=== PATIENT | male | born 1955 | race African-American/Black ===

== ENCOUNTER 2017-11-17 09:58 | Inpatient (IN) | payer OTHER ==
[2017-11-17 11:29] VITALS: BMI 22.1
--- NOTE | 2017-11-17 13:58 | HP ---
CIWA Score - CIWA Score Nausea/Vomitin-No Nausea/No Vomiting Muscle Tremors: 3 Anxiety: 4-Mod. Anxious/Guarded Agitation: 0-Normal Activity Paroxysmal Sweats: 3 Orientation: 0-Oriented Tacttile Disturbances: 1-Very Mild Itch/Numbness Auditory Disturbances: 0-None Visual Disturbances: 2-Mild Sensitivity Headache: 4-Moderately Severe CIWA-Ar Total Score: 17 Admission ROS BHS - HPI Chief Complaint: "I would like to stop drinking." Pt. is here to Detox from Alcohol. Allergies/Adverse Reactions: Allergies Allergy/AdvReac Type Severity Reaction Status Date / Time No Known Allergies Allergy Verified 11/17/17 11:40 History of Present Illness: Pt. is a 62 YO male here to Detox from Alcohol. Patient has had several previous Detox Admissions at [facility] in the past (most recent: 09/2017). Longest period of sobriety in recent years: approx. 20 days (06/2017). Exam Limitations: No Limitations - Ebola screening Have you traveled outside of the country in the last 21 days: No Have you had contact with anyone from an Ebola affected area: No Have you been sick,other than usual withdrawal symptoms: No Do you have a fever: No - Review of Systems Constitutional: Chills, Diaphoresis, Fever, Malaise, Night Sweats, Unexplained wgt Loss (Lost approx. 10 lbs. over last 2 months.) EENT: reports: Blurred Vision, Tearing, Nose Congestion, Sinus Pressure Respiratory: reports: Productive cough Cardiac: reports: No Symptoms Reported GI: reports: Nausea, Vomiting, Indigestion : reports: Frequency (Currently takes HCTZ for HTN.) Musculoskeletal: reports: Back Pain, Joint Pain, Muscle Pain, Neck Pain, Joint Stiffness Integumentary: reports: No Symptoms Reported Neuro: reports: Headache, Numbness (Bilateral hands.), Tingling (Bilateral hands.), Tremors Endocrine: reports: No Symptoms Reported Hematology: reports: Anemia (Not sure about type.) Psychiatric: reports: Judgement Intact, Mood/Affect Appropiate, Orientated x3, Anxious Other Systems: Reviewed and Negative Patient History - Patient Medical History Hx Anemia: Yes (Uncertin about type; No previous Treatment.) Hx Asthma: No Hx Chronic Obstructive Pulmonary Disease (COPD): No Hx Cancer: No Hx Cardiac Disorders: No Hx Congestive Heart Failure: No Hx Hypertension: Yes (NON COMPLIANT WITH MEDS.) Hx Hypercholesterolemia: Yes (In past, not taking any current medications.) Hx Pacemaker: No HX Cerebrovascular Accident: No Hx Seizures: No Hx Dementia: No Hx Diabetes: No Hx Gastrointestinal Disorders: No Hx Liver Disease: No Hx Genitourinary Disorders: No Hx Sexually Transmitted Disorders: No Hx Renal Disease (ESRD): No Hx Thyroid Disease: No Hx Human Immunodeficiency Virus (HIV): No (Last Tested: approx. 5 months ago: NEGATIVE.) Hx Hepatitis C: No (Last Tested: approx. 1 month ago: NEGATIVE.) Hx Depression: No Hx Suicide Attempt: No (PATIENT DENIES CURRENT SI / HI.) Hx Bipolar Disorder: No Hx Schizophrenia: No Other Medical History: DENIES. - Patient Surgical History Past Surgical History: No Hx Neurologic Surgery: No Hx Cataract Extraction: No Hx Cardiac Surgery: No Hx Lung Surgery: No Hx Breast Surgery: No Hx Breast Biopsy: No Hx Abdominal Surgery: No Hx Appendectomy: No Hx Cholecystectomy: No Hx Genitourinary Surgery: No Hx Section: No Hx Orthopedic Surgery: No Anesthesia Reaction: No - PPD History Previous Implant?: Yes Documented Results: Negative w/proof Implanted On Prior [facility] Admission?: Yes Date: 09/08/17 Results: 0 MM PPD to be Administered?: No - Reproductive History Patient is a Female of Child Bearing Age (11 -55 yrs old): No (PATIENT IS MALE.) - Smoking Cessation Smoking history: Current every day smoker Have you smoked in the past 12 months: Yes Aproximately how many cigarettes per day: 20 Cigars Per Day: 0 Hx Chewing Tobacco Use: No Initiated information on smoking cessation: Yes 'Breaking Loose' booklet given: 11/17/17 (GIVEN TO PATIENT.) - Substance & Tx. History Hx Alcohol Use: Yes Hx Substance Use: Yes Substance Use Type: Alcohol, Cocaine, Marijuana Hx Substance Use Treatment: Yes (Previous Detox Admissions at [facility] (most recent : 09/2017).) - Substances Abused Alcohol Route: Oral Frequency: Daily Amount used: 12 PK BEER / 1 PINT OF VODKA OR RUM Age of first use: 16 Date of Last Use: 11/16/17 Cocaine Route: Inhalation Frequency: Daily Amount used: 2-3 GRAMS Age of first use: 19 Date of Last Use: 11/16/17 Marijuana/Hashish Route: Smoking Frequency: Daily Amount used: 1/8 OF AN OUNCE Age of first use: 17 Date of Last Use: 11/16/17 Family Disease History - Family Disease History Family Disease History: Heart Disease: Mother (CVA; .), Other: Mother Admission Physical Exam [facility] - Vital Signs Vital Signs: Vital Signs - 24 hr 11/17/17 11:25 Temperature 96.3 F L Pulse Rate 81 Respiratory 19 Rate Blood Pressure 158/104 - Physical General Appearance: Yes: No Apparent Distress, Appropriately Dressed, Thin, Tremorous HEENTM: Yes: Hearing grossly Normal, Normocephalic, Normal Voice, NIRMALA, Pharynx Normal Respiratory: Yes: Chest Non-Tender, Lungs Clear, No Respiratory Distress, No Accessory Muscle Use Neck: Yes: No masses,lesions,Nodules, Supple, Trachea in good position Breast: Yes: Breast Exam Deferred Cardiology: Yes: Regular Rhythm, Regular Rate, S1, S2 Abdominal: Yes: Normal Bowel Sounds, Non Tender, Flat, Soft Genitourinary: Yes: Within Normal Limits Back: Yes: Decreased Range of Motion Musculoskeletal: Yes: Gait Steady, Back pain, Joint Stiffness Extremities: Yes: Tremors, Other (Swelling noted in Right Hand. Patient reports that this started last night. Patient denies any recent injury to hand, arm, or neck and he denies any IV drug use in right arm / hand. Patient denies any history of similar occurrence. No erythema, bleeding, wounds, unusual discharge , or signsd of infection noted in right hand or arm. Patient advised to keep right arm elevated while lying in bed and to immediately notify medical / nursing staff should he notice any change in condition of right hand at any time. Patient veralized understanding of recommendations.) Neurological: Yes: Fully Oriented, Alert, Normal Mood/Affect, Normal Response Integumentary: Yes: Normal Color, Dry, Warm Lymphatic: Yes: Within Normal Limits - Diagnostic (1) Cocaine dependence, uncomplicated Current Visit: Yes Status: Acute (2) Alcohol dependence with uncomplicated withdrawal Current Visit: Yes Status: Acute (3) Nicotine dependence Current Visit: Yes Status: Chronic Qualifiers: Nicotine product type: cigarettes Substance use status: uncomplicated Qualified Code(s): F17.210 - Nicotine dependence, cigarettes, uncomplicated (4) Hypertension Current Visit: Yes Status: Chronic Qualifiers: Hypertension type: essential hypertension Qualified Code(s): I10 - Essential (primary) hypertension Cleared for Admission [facility] - Detox or Rehab [facility] Level of Care: Medically Managed Detox Regimen/Protocol: Librium [facility] Breath Alcohol Content Breath Alcohol Content: 0 Urine Drug Screen - Results Drug Screen Negative: No Urine Drug Screen Results: THC-Marijuana, NIDA-Cocaine, BZO-Benzodiazepines
[2017-11-17] MEDS ORDERED: chlordiazePOXIDE HCL 25 MG CAPSULE PO PRN (14:41)
[2017-11-17] MEDS ORDERED: MAGNESIUM CITRATE 300 ML BOTTLE PO PRN (14:41)
[2017-11-17] MEDS ORDERED: ACETAMINOPHEN 325 MG TABLET (FP) PO PRN (14:41)
[2017-11-17] MEDS ORDERED: guaiFENesin/D-METHORPHAN HB 10 ML UNIT-DOSE CUPS PO PRN (14:41)
[2017-11-17] MEDS ORDERED: LOPERAMIDE HCL 2 MG CAPSULE PO PRN (14:41)
[2017-11-17] MEDS ORDERED: MAG HYDROX/AL HYDROX/SIMETH 30 ML UNIT-DOSE CUP PO PRN (14:41)
[2017-11-17] MEDS ORDERED: MENTHOL/PHENOL 1 EACH UD MM PRN (14:41)
[2017-11-17] MEDS ORDERED: MAGNESIUM HYDROX 2400MG/30ML ORAL SUSPENSION 30 ML CUP PO PRN (14:41)
[2017-11-17] MEDS ORDERED: IBUPROFEN 400 MG TABLET (FP) PO PRN (14:41)
[2017-11-17] MEDS ORDERED: P-EPHED 60MG/TRIPROLIDI 2.5MG TABLET PO PRN (14:41)
[2017-11-17] MEDS ORDERED: chlordiazePOXIDE HCL 25 MG CAPSULE PO ONE (15:27)
[2017-11-17] MEDS: amLODIPine BESYLATE 10 MG TABLET (FP) PO SCH (15:58)
[2017-11-17] MEDS: HYDROCHLOROTHIAZIDE 25 MG TABLET (FP) PO SCH (15:58)
[2017-11-17] MEDS: chlordiazePOXIDE HCL 25 MG CAPSULE PO SCH ×2 (16:00→22:09)
--- NOTE | 2017-11-17 18:45 | EKG ---
Test Reason : Blood Pressure : / mmHG Vent. Rate : 060 BPM Atrial Rate : 060 BPM P-R Int : 148 ms QRS Dur : 100 ms QT Int : 484 ms P-R-T Axes : 071 -21 -70 degrees QTc Int : 484 ms NORMAL SINUS RHYTHM POSSIBLE LEFT ATRIAL ENLARGEMENT LEFT VENTRICULAR HYPERTROPHY CANNOT RULE OUT ANTEROSEPTAL INFARCT , AGE UNDETERMINED ABNORMAL ECG WHEN COMPARED WITH ECG OF 07-SEP-2017 10:02, MINIMAL CRITERIA FOR ANTEROSEPTAL INFARCT ARE NOW PRESENT Confirmed by THU NARANJO, MARIANNE ([id number]) on 11/17/2017 6:45:08 PM Referred By: Confirmed By:MARIANNE ANDINO MD
[2017-11-17] MEDS: THIAMINE HCL 100 MG TABLET (FP) PO SCH (22:09)
[2017-11-17 23:25] LABS: URINE APPEARANCE CLEAR; URINE BILIRUBIN NEGATIVE (NEGATIVE); URINE BLOOD NEGATIVE (NEGATIVE); URINE COLOR YELLOW; URINE GLUCOSE (UA) NEGATIVE (NEGATIVE); URINE KETONE TRACE (NEGATIVE); URINE LEUK ESTERASE NEGATIVE (NEGATIVE); URINE NITRITE NEGATIVE (NEGATIVE); URINE PROTEIN NEGATIVE (NEGATIVE); URINE UROBILINOGEN 4.0 E.U/dl mg/dL (0.2-1.0)
[2017-11-18] MEDS: chlordiazePOXIDE HCL 25 MG CAPSULE PO SCH ×4 (05:03→22:05)
--- NOTE | 2017-11-18 10:39 | PN ---
[facility] CIWA - CIWA Score Nausea/Vomitin-No Nausea/No Vomiting Muscle Tremors: 4-Moderate,w/Arms Extend Anxiety: 4-Mod. Anxious/Guarded Agitation: 4-Moderately Restless Paroxysmal Sweats: 1-Minimal Palms Moist Orientation: 0-Oriented Tacttile Disturbances: 3-Moderate Itch/Numb/Burn Auditory Disturbances: 0-None Visual Disturbances: 0-None Headache: 0-None Present CIWA-Ar Total Score: 16 BHS Progress Note (SOAP) Subjective: ANXIETY,SWEATS,TREMORS,IRRITABILITY. PT C/O PAIN/SWELLING TO RIGHT HAND X 3 DAYS. DENIES FALLS OR ANY TRUAMA TO HIS RECOLLECTION. Objective: 11/18/17 10:37 Vital Signs Temperature 97.1 F L 11/18/17 09:02 Pulse Rate 95 H 11/18/17 09:02 Respiratory Rate 20 11/18/17 09:02 Blood Pressure 157/95 11/18/17 09:02 O2 Sat by Pulse Oximetry (%) Laboratory Last Values Urine Color Yellow 11/17/17 20:47 Urine Appearance Clear 11/17/17 20:47 Urine pH 6.0 (5.0-8.0) 11/17/17 20:47 Ur Specific [place] 1.021 (1.001-1.035) 11/17/17 20:47 Urine Protein Negative (NEGATIVE) 11/17/17 20:47 Urine Glucose (UA) Negative (NEGATIVE) 11/17/17 20:47 Urine Ketones Trace (NEGATIVE) H 11/17/17 20:47 Urine Blood Negative (NEGATIVE) 11/17/17 20:47 Urine Nitrite Negative (NEGATIVE) 11/17/17 20:47 Urine Bilirubin Negative (NEGATIVE) 11/17/17 20:47 Urine Urobilinogen 4.0 e.u/dl mg/dL (0.2-1.0) 11/17/17 20:47 Ur Leukocyte Esterase Negative (NEGATIVE) 11/17/17 20:47 OTHER LABS PENDING RIGHT HAND: SLIGHT SWELLING COMPARED TO LEFT HAND. Assessment: 11/18/17 10:38 WITHDRAWAL SX Plan: CONTINUE DETOX XRAY RIGHT HAND R/O FX
[2017-11-18] MEDS: LISINOPRIL 10 MG TABLET (FP) PO SCH (10:42)
[2017-11-18] MEDS: PRENATAL VITAMINS W/ FOLIC ACID TABLET (FP) PO SCH (10:42)
[2017-11-18] MEDS: HYDROCHLOROTHIAZIDE 25 MG TABLET (FP) PO SCH (10:42)
[2017-11-18] MEDS: amLODIPine BESYLATE 10 MG TABLET (FP) PO SCH (10:42)
[2017-11-18 10:45] LABS: HEMATOCRIT 38.1 % (35.4-49); HEMOGLOBIN 12.1 GM/dL (11.7-16.9); MCH 26.9 pg (25.7-33.7); MCHC 31.8 g/dl (32.0-35.9); MEAN CELL VOLUME 84.6 fl (80-96); MEAN PLT VOLUME 10.2 fl (7.5-11.1); PLATELET COUNT 203 K/MM3 (134-434); RDW 14.1 % (11.9-15.9); WHITE BLOOD COUNT 3.7 K/mm3 (4.0-10.0)
[2017-11-18 11:18] LABS: ALBUMIN 3.4 g/dl (3.4-5.0); ANION GAP 6 (8-16); BLOOD UREA NITROGEN 18 mg/dL (7-18); CALCIUM 8.7 mg/dL (8.5-10.1); CHLORIDE 104 mmol/L (98-107); CO2 32 mmol/L (21-32); GLUCOSE,RANDOM 126 mg/dL (74-106); POTASSIUM 3.6 mmol/L (3.5-5.1); SODIUM 142 mmol/L (136-145)
[2017-11-18 11:23] LABS: ALK PHOS 79 U/L (45-117); BILIRUBIN,TOTAL 0.6 mg/dL (0.2-1.0); CREATININE 1.8 mg/dL (0.7-1.3); SGOT/AST 34 U/L (15-37); SGPT/ALT 50 U/L (12-78); TOT PROT 7.4 g/dl (6.4-8.2)
[2017-11-18] MEDS: THIAMINE HCL 100 MG TABLET (FP) PO SCH (22:05)
[2017-11-19] MEDS: chlordiazePOXIDE HCL 25 MG CAPSULE PO SCH ×2 (05:38→10:13)
[2017-11-19] MEDS: amLODIPine BESYLATE 10 MG TABLET (FP) PO SCH (10:12)
[2017-11-19] MEDS: LISINOPRIL 10 MG TABLET (FP) PO SCH (10:12)
[2017-11-19] MEDS: PRENATAL VITAMINS W/ FOLIC ACID TABLET (FP) PO SCH (10:12)
[2017-11-19] MEDS: HYDROCHLOROTHIAZIDE 25 MG TABLET (FP) PO SCH (10:12)
--- NOTE | 2017-11-19 11:58 | PN ---
[facility] CIWA - CIWA Score Nausea/Vomitin-No Nausea/No Vomiting Muscle Tremors: 3 Anxiety: 4-Mod. Anxious/Guarded Agitation: 3 Paroxysmal Sweats: 1-Minimal Palms Moist Orientation: 0-Oriented Tacttile Disturbances: 3-Moderate Itch/Numb/Burn Auditory Disturbances: 0-None Visual Disturbances: 0-None Headache: 0-None Present CIWA-Ar Total Score: 14 S Progress Note (SOAP) Subjective: C/O BACK PAIN AND RIGHT HAND PAIN. PT DECLINED TO XRAY OF HAND STATING "THERE IS NO INJURY.WHY DO I HAVE TO DO XRAY". Objective: 11/19/17 12:29 Vital Signs Temperature 97.0 F L 11/19/17 09:37 Pulse Rate 99 H 11/19/17 09:37 Respiratory Rate 18 11/19/17 09:37 Blood Pressure 154/102 11/19/17 09:37 O2 Sat by Pulse Oximetry (%) Laboratory Last Values WBC 3.7 K/mm3 (4.0-10.0) L 11/18/17 06:00 RBC 4.50 M/mm3 (4.00-5.60) 11/18/17 06:00 Hgb 12.1 GM/dL (11.7-16.9) 11/18/17 06:00 Hct 38.1 % (35.4-49) 11/18/17 06:00 MCV 84.6 fl (80-96) 11/18/17 06:00 MCH 26.9 pg (25.7-33.7) 11/18/17 06:00 MCHC 31.8 g/dl (32.0-35.9) L 11/18/17 06:00 RDW 14.1 % (11.9-15.9) 11/18/17 06:00 Plt Count 203 K/MM3 (134-434) 11/18/17 06:00 MPV 10.2 fl (7.5-11.1) 11/18/17 06:00 Sodium 142 mmol/L (136-145) 11/18/17 06:00 Potassium 3.6 mmol/L (3.5-5.1) 11/18/17 06:00 Chloride 104 mmol/L (98-107) 11/18/17 06:00 Carbon Dioxide 32 mmol/L (21-32) 11/18/17 06:00 Anion Gap 6 (8-16) L 11/18/17 06:00 BUN 18 mg/dL (7-18) 11/18/17 06:00 Creatinine 1.8 mg/dL (0.7-1.3) H 11/18/17 06:00 Creat Clearance w eGFR 38.68 (>60) 11/18/17 06:00 Random Glucose 126 mg/dL (74-106) H 11/18/17 06:00 Calcium 8.7 mg/dL (8.5-10.1) 11/18/17 06:00 Total Bilirubin 0.6 mg/dL (0.2-1.0) D 11/18/17 06:00 AST 34 U/L (15-37) 11/18/17 06:00 ALT 50 U/L (12-78) D 11/18/17 06:00 Alkaline Phosphatase 79 U/L (45-117) D 11/18/17 06:00 Total Protein 7.4 g/dl (6.4-8.2) 11/18/17 06:00 Albumin 3.4 g/dl (3.4-5.0) 11/18/17 06:00 Urine Color Yellow 11/17/17 20:47 Urine Appearance Clear 11/17/17 20:47 Urine pH 6.0 (5.0-8.0) 11/17/17 20:47 Ur Specific [place] 1.021 (1.001-1.035) 11/17/17 20:47 Urine Protein Negative (NEGATIVE) 11/17/17 20:47 Urine Glucose (UA) Negative (NEGATIVE) 11/17/17 20:47 Urine Ketones Trace (NEGATIVE) H 11/17/17 20:47 Urine Blood Negative (NEGATIVE) 11/17/17 20:47 Urine Nitrite Negative (NEGATIVE) 11/17/17 20:47 Urine Bilirubin Negative (NEGATIVE) 11/17/17 20:47 Urine Urobilinogen 4.0 e.u/dl mg/dL (0.2-1.0) 11/17/17 20:47 Ur Leukocyte Esterase Negative (NEGATIVE) 11/17/17 20:47 RPR Titer Nonreactive (NONREACTIVE) 11/18/17 06:00 Assessment: 11/19/17 12:29 WITHDRAWAL SX Plan: CONTINUE DETOX MOTRIN PRN
[2017-11-19] MEDS: chlordiazePOXIDE 5 MG CAPSULE PO SCH ×2 (17:30→22:04)
[2017-11-19] MEDS: THIAMINE HCL 100 MG TABLET (FP) PO SCH (22:04)
[2017-11-20] MEDS: chlordiazePOXIDE 5 MG CAPSULE PO SCH ×2 (05:33→10:52)
[2017-11-20] MEDS: amLODIPine BESYLATE 10 MG TABLET (FP) PO SCH (10:52)
[2017-11-20] MEDS: LISINOPRIL 10 MG TABLET (FP) PO SCH (10:52)
[2017-11-20] MEDS: HYDROCHLOROTHIAZIDE 25 MG TABLET (FP) PO SCH (10:52)
[2017-11-20] MEDS: PRENATAL VITAMINS W/ FOLIC ACID TABLET (FP) PO SCH (10:52)
--- NOTE | 2017-11-20 14:22 | PN ---
BHS Progress Note (SOAP) Subjective: Fatigue, Interrupted Sleep. Objective: PT. A & O X 3, OBSERVED AMBULATING ON UNIT. NO ACUTE DISTRESS. 11/20/17 14:24 Vital Signs Temperature 97.8 F 11/20/17 13:14 Pulse Rate 93 H 11/20/17 13:14 Respiratory Rate 11/20/17 13:14 Blood Pressure 143/87 11/20/17 13:14 O2 Sat by Pulse Oximetry (%) Laboratory Tests 11/17/17 11/18/17 11/18/17 20:47 06:00 06:00 WBC 3.7 L RBC 4.50 Hgb 12.1 Hct 38.1 MCV 84.6 MCH 26.9 MCHC 31.8 L RDW 14.1 Plt Count 203 MPV 10.2 Sodium 142 Potassium 3.6 Chloride 104 Carbon Dioxide 32 Anion Gap 6 L BUN 18 Creatinine 1.8 H Creat Clearance w eGFR 38.68 Random Glucose 126 H Calcium 8.7 Total Bilirubin 0.6 D AST 34 ALT 50 D Alkaline Phosphatase 79 D Total Protein 7.4 Albumin 3.4 Urine Color Yellow Urine Appearance Clear Urine pH 6.0 Ur Specific [place] 1.021 Urine Protein Negative Urine Glucose (UA) Negative Urine Ketones Trace H Urine Blood Negative Urine Nitrite Negative Urine Bilirubin Negative Urine Urobilinogen 4.0 e.u/dl Ur Leukocyte Esterase Negative RPR Titer 11/18/17 06:00 WBC RBC Hgb Hct MCV MCH MCHC RDW Plt Count MPV Sodium Potassium Chloride Carbon Dioxide Anion Gap BUN Creatinine Creat Clearance w eGFR Random Glucose Calcium Total Bilirubin AST ALT Alkaline Phosphatase Total Protein Albumin Urine Color Urine Appearance Urine pH Ur Specific [place] Urine Protein Urine Glucose (UA) Urine Ketones Urine Blood Urine Nitrite Urine Bilirubin Urine Urobilinogen Ur Leukocyte Esterase RPR Titer Nonreactive LABS NOTED. Assessment: 11/20/17 14:24 WITHDRAWAL SYMPTOMS. Plan: CONTINUE DETOX. PATIENT ADVISED TO FOLLOW-UP WITH ACCREDITATION MANAGER DR. SIMON David AFTER DISCHARGE FROM DETOX FOR MEDICAL ASSESSMENT.
[2017-11-20] MEDS: chlordiazePOXIDE HCL 10 MG CAPSULE PO SCH ×2 (17:27→22:11)
[2017-11-20] MEDS: THIAMINE HCL 100 MG TABLET (FP) PO SCH (22:11)
[2017-11-21] MEDS: chlordiazePOXIDE HCL 10 MG CAPSULE PO SCH (05:38)
[2017-11-21 06:01] VITALS: BP 144/75; PULSE 74; TEMP 97.4
[2017-11-21] MEDS: amLODIPine BESYLATE 10 MG TABLET (FP) PO SCH (09:27)
[2017-11-21] MEDS: LISINOPRIL 10 MG TABLET (FP) PO SCH (09:28)
[2017-11-21] MEDS: HYDROCHLOROTHIAZIDE 25 MG TABLET (FP) PO SCH (09:28)
[2017-11-21] MEDS: PRENATAL VITAMINS W/ FOLIC ACID TABLET (FP) PO SCH (09:28)
--- NOTE | 2017-11-21 12:43 | DS ---
[facility] Detox Discharge Summary Admission Date: 11/17/17 Discharge Date: 11/21/17 - History Present History: Alcohol Dependence, Cocaine Dependence Pertinent Past History: HTN - Physical Exam Results Vital Signs: Vital Signs Temperature 97.4 F L 11/21/17 06:00 Pulse Rate 74 11/21/17 06:00 Respiratory Rate 18 11/21/17 06:00 Blood Pressure 144/75 11/21/17 06:00 O2 Sat by Pulse Oximetry (%) Pertinent Admission Physical Exam Findings: Withdrawal symptoms - Treatment Hospital Course: Detox Protocol Followed, Detoxed Safely, Responded well, Discharged Condition Good - Medication Discharge Medications: Ambulatory Orders Amlodipine Besylate [Norvasc -] 10 mg PO DAILY #30 tablet 04/25/16 Hydrochlorothiazide [Hctz -] 25 mg PO DAILY #30 tablet 04/25/16 - Diagnosis (1) Alcohol dependence with uncomplicated withdrawal Status: Acute (2) Cocaine dependence, uncomplicated Status: Chronic (3) Nicotine dependence Status: Chronic Qualifiers: Nicotine product type: cigarettes Substance use status: in withdrawal Qualified Code(s): F17.213 - Nicotine dependence, cigarettes, with withdrawal (4) Hypertension Status: Chronic Qualifiers: Hypertension type: essential hypertension Qualified Code(s): I10 - Essential (primary) hypertension - AMA Did Patient Leave Against Medical Advice: No (F/U with PCP within 1-2 weeks)
== END 2017-11-21 09:30 | disposition home or self-care (01) | DRG 774 ==
LOC: YASAS 09:58 → Y3N 13:30
PROVIDERS: ADMIT Internal Medicine; ATTEND Internal Medicine
PROC: HZ2ZZZZ Detoxification Services for Substance Abuse Treatment (ICD-10-PCS; principal; 2017-11-17)
DX: F10.230 Alcohol dependence with withdrawal, uncomplicated (principal); F14.20 Cocaine dependence, uncomplicated; F17.213 Nicotine dependence, cigarettes, with withdrawal; I10 Essential (primary) hypertension; M54.5 Low back pain; G89.29 Other chronic pain; Z91.14 Patient's other noncompliance with medication regimen
CPT/HCPCS: 36415; 80053; 81003; 85027; 86593; 93005; 93010

== ENCOUNTER 2017-12-20 08:24 | Inpatient (IN) | payer OTHER ==
[2017-12-20 09:25] VITALS: BMI 21.4
[2017-12-20] MEDS ORDERED: IBUPROFEN 400 MG TABLET (FP) PO PRN (10:48)
[2017-12-20] MEDS ORDERED: ACETAMINOPHEN 325 MG TABLET (FP) PO PRN (10:48)
[2017-12-20] MEDS ORDERED: P-EPHED 60MG/TRIPROLIDI 2.5MG TABLET PO PRN (10:48)
[2017-12-20] MEDS ORDERED: MAGNESIUM CITRATE 300 ML BOTTLE PO PRN (10:48)
[2017-12-20] MEDS ORDERED: LOPERAMIDE HCL 2 MG CAPSULE PO PRN (10:48)
[2017-12-20] MEDS ORDERED: guaiFENesin/D-METHORPHAN HB 10 ML UNIT-DOSE CUPS PO PRN (10:48)
[2017-12-20] MEDS ORDERED: NICOTINE POLACRILEX 4 MG GUM BC PRN (10:48)
[2017-12-20] MEDS ORDERED: hydrOXYzine PAMOATE 50 MG CAPSULE (FP) PO PRN (10:48)
[2017-12-20] MEDS ORDERED: MAGNESIUM HYDROX 2400MG/30ML ORAL SUSPENSION 30 ML CUP PO PRN (10:48)
[2017-12-20] MEDS ORDERED: MAG HYDROX/AL HYDROX/SIMETH 30 ML UNIT-DOSE CUP PO PRN (10:48)
[2017-12-20] MEDS ORDERED: MENTHOL/PHENOL 1 EACH UD MM PRN (10:48)
--- NOTE | 2017-12-20 10:48 | HP ---
Admission [facility] - [facility] Chief Complaint: requesting incritical access hospital rehab after recent hosptial admission where he was detoxecd Allergies/Adverse Reactions: Allergies Allergy/AdvReac Type Severity Reaction Status Date / Time No Known Allergies Allergy Verified 12/20/17 09:57 Exam Limitations: No Limitations - Ebola screening Have you traveled outside of the country in the last 21 days: No Have you had contact with anyone from an Ebola affected area: No Have you been sick,other than usual withdrawal symptoms: No Do you have a fever: No - Review of Systems Constitutional: No Symptoms Reported EENT: reports: No Symptoms Reported Respiratory: reports: No Symptoms reported Cardiac: reports: No Symptoms Reported GI: reports: No Symptoms Reported : reports: No Symptoms Reported Musculoskeletal: reports: No Symptoms Reported Integumentary: reports: No Symptoms Reported Neuro: reports: No Symptoms reported Endocrine: reports: No Symptoms Reported Hematology: reports: No Symptoms Reported Psychiatric: reports: Judgement Intact, Mood/Affect Appropiate, Orientated x3, Anxious, Depressed Other Systems: Reviewed and Negative Patient History - Patient Medical History Hx Anemia: Yes (Uncertin about type; No previous Treatment.) Hx Asthma: No Hx Chronic Obstructive Pulmonary Disease (COPD): No Hx Cancer: No Hx Cardiac Disorders: No Hx Congestive Heart Failure: No Hx Hypertension: Yes (NON COMPLIANT WITH MEDS.) Hx Hypercholesterolemia: Yes (In past, not taking any current medications.) Hx Pacemaker: No HX Cerebrovascular Accident: No Hx Seizures: No Hx Dementia: No Hx Diabetes: No Hx Gastrointestinal Disorders: No Hx Liver Disease: No Hx Genitourinary Disorders: No Hx Sexually Transmitted Disorders: No Hx Renal Disease (ESRD): No Hx Thyroid Disease: No Hx Human Immunodeficiency Virus (HIV): No (Last Tested: approx. 5 months ago: NEGATIVE.) Hx Hepatitis C: No (Last Tested: approx. 1 month ago: NEGATIVE.) Hx Depression: No Hx Suicide Attempt: No (PATIENT DENIES CURRENT SI / HI.) Hx Bipolar Disorder: No Hx Schizophrenia: No - Patient Surgical History Past Surgical History: No Hx Neurologic Surgery: No Hx Cataract Extraction: No Hx Cardiac Surgery: No Hx Lung Surgery: No Hx Breast Surgery: No Hx Breast Biopsy: No Hx Abdominal Surgery: No Hx Appendectomy: No Hx Cholecystectomy: No Hx Genitourinary Surgery: No Hx Section: No Hx Orthopedic Surgery: No Anesthesia Reaction: No - PPD History Previous Implant?: Yes Date: 09/08/17 Results: 0 MM PPD to be Administered?: No - Reproductive History Patient is a Female of Child Bearing Age (11 -55 yrs old): No Patient : No - Smoking Cessation Smoking history: Current every day smoker Have you smoked in the past 12 months: Yes Aproximately how many cigarettes per day: 20 Cigars Per Day: 0 Hx Chewing Tobacco Use: No Initiated information on smoking cessation: Yes 'Breaking Loose' booklet given: 12/20/17 - Substance & Tx. History Hx Alcohol Use: Yes Hx Substance Use: Yes Substance Use Type: Alcohol, Cocaine, Marijuana, Opiates, Prescribed, Tranquilizers Hx Substance Use Treatment: Yes - Substances Abused Cocaine Route: Inhalation Frequency: Daily Amount used: 1g daily Age of first use: 25 Date of Last Use: 12/19/17 Marijuana/Hashish Route: Smoking Frequency: Daily Amount used: 2g Age of first use: 22 Date of Last Use: 12/19/17 Alcohol Route: Oral Frequency: Daily Amount used: 1 pint spirits Age of first use: 22 Date of Last Use: 12/16/17 Family Disease History - Family Disease History Family Disease History: Heart Disease: Mother (CVA; .), Other: Mother Admission Physical Exam S - Vital Signs Vital Signs: Vital Signs - 24 hr 12/20/17 09:22 Temperature 95.3 F L Pulse Rate 68 Respiratory 20 Rate Blood Pressure 145/88 - Physical General Appearance: Yes: Within Normal Limits, No Apparent Distress, Nourished, Appropriately Dressed HEENTM: Yes: Within Normal Limits, EOMI, Hearing grossly Normal, Normal ENT Inspection, Normocephalic, Normal Voice, NIRMALA, Pharynx Normal Respiratory: Yes: Within Normal Limits, Chest Non-Tender, Lungs Clear, Normal Breath Sounds, No Respiratory Distress, No Accessory Muscle Use Neck: Yes: Within Normal Limits, No masses,lesions,Nodules, Supple, Trachea in good position Breast: Yes: Breast Exam Deferred Cardiology: Yes: Within Normal Limits, Regular Rhythm, Regular Rate, S1, S2 Abdominal: Yes: Within Normal Limits, Normal Bowel Sounds, Non Tender, Flat, Soft Genitourinary: Yes: Within Normal Limits Back: Yes: Within Normal Limits, Normal Inspection Musculoskeletal: Yes: Within Normal Limits, full range of Motion, Gait Steady, Pelvis Stable Extremities: Yes: Within Normal Limits, Normal Capillary Refill, Normal Inspection, Normal Range of Motion, Non-Tender 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, Fully Oriented, Alert, Motor Strength 5/5, Normal Response, Depressed Affect Integumentary: Yes: Within Normal Limits, Normal Color, Dry, Warm Lymphatic: Yes: Within Normal Limits - Diagnostic (1) Cannabis dependence Current Visit: Yes Status: Acute (2) Alcohol dependence Current Visit: Yes Status: Acute (3) Chronic low back pain Current Visit: No Status: Chronic (4) Cocaine dependence, uncomplicated Current Visit: No Status: Chronic (5) Hypertension Current Visit: No Status: Chronic Qualifiers: (6) Nicotine dependence Current Visit: No Status: Chronic Qualifiers: Cleared for Admission [facility] - Detox or Rehab Claeared for Rehab Admission: Yes [facility] Breath Alcohol Content Breath Alcohol Content: 0 Urine Drug Screen - Results Drug Screen Negative: No Urine Drug Screen Results: THC-Marijuana, NIDA-Cocaine, BZO-Benzodiazepines Inpatient Rehab Admission - Initial Determination Are CD services needed?: Yes Free of communicable disease: Yes Not in need of hospitalization: Yes - Rehab Admission Criteria Comorbidities: Yes Lacks judgement: Yes Patient is meeting Inpatient Rehab admission criteria:: Yes
[2017-12-20] MEDS: HYDROCHLOROTHIAZIDE 25 MG TABLET (FP) PO SCH (19:21)
[2017-12-20] MEDS: CYCLOBENZAPRINE HCL 10 MG TABLET (FP) PO SCH ×2 (19:21→21:29)
[2017-12-20] MEDS: amLODIPine BESYLATE 5 MG TABLET (FP) PO SCH (19:21)
[2017-12-20] MEDS: NICOTINE 21 MG/24 HOURS TOPICAL PATCH TD SCH (19:22)
[2017-12-20] MEDS: LIDOCAINE 5% TOPICAL PATCH TP SCH (19:22)
[2017-12-20] MEDS: THIAMINE HCL 100 MG TABLET (FP) PO SCH (21:29)
[2017-12-20 21:53] LABS: URINE APPEARANCE CLEAR; URINE BILIRUBIN NEGATIVE (NEGATIVE); URINE BLOOD NEGATIVE (NEGATIVE); URINE COLOR YELLOW; URINE GLUCOSE (UA) NEGATIVE (NEGATIVE); URINE KETONE NEGATIVE (NEGATIVE); URINE LEUK ESTERASE NEGATIVE (NEGATIVE); URINE NITRITE NEGATIVE (NEGATIVE); URINE PROTEIN NEGATIVE (NEGATIVE); URINE UROBILINOGEN NEGATIVE mg/dL (0.2-1.0)
[2017-12-20] MEDS: LIDOCAINE PATCH REMOVAL MC SCH (21:58)
[2017-12-21] MEDS: CYCLOBENZAPRINE HCL 10 MG TABLET (FP) PO SCH ×3 (06:37→21:24)
--- NOTE | 2017-12-21 08:57 | EKG ---
Test Reason : Blood Pressure : / mmHG Vent. Rate : 073 BPM Atrial Rate : 073 BPM P-R Int : 152 ms QRS Dur : 092 ms QT Int : 424 ms P-R-T Axes : 068 -13 -73 degrees QTc Int : 467 ms NORMAL SINUS RHYTHM POSSIBLE LEFT ATRIAL ENLARGEMENT LEFT VENTRICULAR HYPERTROPHY CANNOT RULE OUT SEPTAL INFARCT (CITED ON OR BEFORE 06-SEP-2017) T WAVE ABNORMALITY, CONSIDER INFEROLATERAL ISCHEMIA ABNORMAL ECG Confirmed by Bennett Evans MD ([id number]) on 12/21/2017 8:57:36 AM Referred By: Confirmed By:Bennett Evans MD
[2017-12-21] MEDS: PRENATAL VITAMINS W/ FOLIC ACID TABLET (FP) PO SCH (10:07)
[2017-12-21] MEDS: NICOTINE 21 MG/24 HOURS TOPICAL PATCH TD SCH (10:07)
[2017-12-21] MEDS: LIDOCAINE 5% TOPICAL PATCH TP SCH (10:07)
[2017-12-21] MEDS: amLODIPine BESYLATE 5 MG TABLET (FP) PO SCH (10:07)
[2017-12-21] MEDS: HYDROCHLOROTHIAZIDE 25 MG TABLET (FP) PO SCH (10:07)
--- NOTE | 2017-12-21 11:38 | HP ---
Psychiatrist Admission - Data Date of interview: 12/21/17 Admission source: [facility] Identifying data: This is the first [facility] inpatient rehabilitation admission for this 62 year old AA male who is single unemployed and dimiciled. Medical History: HTN, HLP and chronic back pain, smokes cigaretets 20 a day. Psychiatric History: Patient denies history of psychiatric treatment. Physical/Sexual Abuse/Trauma History: Patient denies Vital Signs: Vital Signs - 24 hr 12/21/17 12/21/17 12/21/17 00:30 03:30 06:48 Temperature 97.2 F L Pulse Rate 83 Respiratory 20 18 18 Rate Blood Pressure 145/94 12/21/17 10:00 Temperature Pulse Rate 84 Respiratory 18 Rate Blood Pressure 161/103 Allergies/Adverse Reactions: Allergies Allergy/AdvReac Type Severity Reaction Status Date / Time No Known Allergies Allergy Verified 12/20/17 09:57 Date of last physical exam: 12/20/17 Concur with the findings of this exam: Yes - Substance Abuse/Tx History Hx Alcohol Use: Yes (age of first use 22, daily 1 pint od spirits) Hx Substance Use: Yes Substance Use Type: Cocaine (started at age of 25, daily use 1 gr), Marijuana ( started at age of 22, daily 2 gr) Hx Substance Use Treatment: Yes (this is the first rehablitation treatment.) Mental Status Exam - Mental Status Exam Alert and Oriented to: Time, Place, Person Cognitive Function: Grossly Intact Patient Appearance: Well Groomed Mood: Angry, Irritable Affect: Appropriate, Mood Congruent Patient Behavior: Cooperative Speech Pattern: Clear, Appropriate Voice Loudness: Normal Thought Process: Intact Thought Disorder: Not Present Hallucinations: Denies Suicidal Ideation: Denies Homicidal Ideation: Denies Insight/Judgement: Fair Sleep: Fair Appetite: Fair Muscle strength/Tone: Normal Gait/Station: Other Psychiatric Findings - Problem List ([place] 1, 2,3) (1) Cocaine dependence Current Visit: Yes Status: Acute (2) Alcohol dependence Current Visit: Yes Status: Acute (3) Cannabis dependence Current Visit: Yes Status: Acute (4) Nicotine dependence Current Visit: No Status: Chronic Qualifiers: - Initial Treatment Plan Initial Treatment Plan: Group and supportive therapy ,will monitor progress as needed.
[2017-12-21 15:04] LABS: HEMATOCRIT 34.3 % (35.4-49); HEMOGLOBIN 11.1 GM/dL (11.7-16.9); MCH 27.5 pg (25.7-33.7); MCHC 32.4 g/dl (32.0-35.9); MEAN CELL VOLUME 84.6 fl (80-96); MEAN PLT VOLUME 9.8 fl (7.5-11.1); PLATELET COUNT 190 K/MM3 (134-434); RBC 4.05 M/mm3 (4.00-5.60); RDW 14.1 % (11.9-15.9); WHITE BLOOD COUNT 3.9 K/mm3 (4.0-10.0)
[2017-12-21 15:20] LABS: ALBUMIN 2.8 g/dl (3.4-5.0); ANION GAP 5 (8-16); BILIRUBIN,TOTAL 0.2 mg/dL (0.2-1.0); BLOOD UREA NITROGEN 28 mg/dL (7-18); CALCIUM 7.9 mg/dL (8.5-10.1); CHLORIDE 108 mmol/L (98-107); CO2 30 mmol/L (21-32); GLUCOSE,RANDOM 103 mg/dL (74-106); POTASSIUM 3.8 mmol/L (3.5-5.1); SGOT/AST 22 U/L (15-37); SODIUM 143 mmol/L (136-145)
[2017-12-21 15:21] LABS: ALK PHOS 129 U/L (45-117); CREATININE 1.7 mg/dL (0.7-1.3); SGPT/ALT 29 U/L (12-78); TOT PROT 6.3 g/dl (6.4-8.2)
[2017-12-21] MEDS: LIDOCAINE PATCH REMOVAL MC SCH (21:24)
[2017-12-21] MEDS: THIAMINE HCL 100 MG TABLET (FP) PO SCH (21:24)
[2017-12-22] MEDS: CYCLOBENZAPRINE HCL 10 MG TABLET (FP) PO SCH ×3 (06:30→14:34)
[2017-12-22] MEDS: HYDROCHLOROTHIAZIDE 25 MG TABLET (FP) PO SCH (10:09)
[2017-12-22] MEDS: amLODIPine BESYLATE 5 MG TABLET (FP) PO SCH (10:09)
[2017-12-22] MEDS: PRENATAL VITAMINS W/ FOLIC ACID TABLET (FP) PO SCH (10:09)
[2017-12-22] MEDS: LIDOCAINE 5% TOPICAL PATCH TP SCH (10:10)
[2017-12-22] MEDS: NICOTINE 21 MG/24 HOURS TOPICAL PATCH TD SCH (10:10)
[2017-12-22] MEDS: LISINOPRIL 10 MG TABLET (FP) PO SCH (16:52)
[2017-12-22] MEDS: amLODIPine BESYLATE 10 MG TABLET (FP) PO SCH (16:52)
[2017-12-22] MEDS: THIAMINE HCL 100 MG TABLET (FP) PO SCH (21:26)
[2017-12-22] MEDS: CYCLOBENZAPRINE HCL 10 MG TABLET (FP) PO PRN (21:27)
[2017-12-22] MEDS: LIDOCAINE PATCH REMOVAL MC SCH (21:27)
[2017-12-23] MEDS: LISINOPRIL 10 MG TABLET (FP) PO SCH (10:19)
[2017-12-23] MEDS: PRENATAL VITAMINS W/ FOLIC ACID TABLET (FP) PO SCH (10:19)
[2017-12-23] MEDS: amLODIPine BESYLATE 10 MG TABLET (FP) PO SCH (10:21)
[2017-12-23] MEDS: NICOTINE 21 MG/24 HOURS TOPICAL PATCH TD SCH (10:21)
[2017-12-23] MEDS: LIDOCAINE 5% TOPICAL PATCH TP SCH (10:21)
[2017-12-23] MEDS ORDERED: HYDROCHLOROTHIAZIDE 12.5 MG CAPSULE (FP) PO SCH (13:45)
[2017-12-23] MEDS: LIDOCAINE PATCH REMOVAL MC SCH (21:27)
[2017-12-23] MEDS: THIAMINE HCL 100 MG TABLET (FP) PO SCH (21:27)
[2017-12-24] MEDS: NICOTINE 21 MG/24 HOURS TOPICAL PATCH TD SCH (10:15)
[2017-12-24] MEDS: LIDOCAINE 5% TOPICAL PATCH TP SCH (10:15)
[2017-12-24] MEDS: PRENATAL VITAMINS W/ FOLIC ACID TABLET (FP) PO SCH (10:16)
[2017-12-24] MEDS: LISINOPRIL 5 MG TABLET (FP) PO SCH (10:16)
[2017-12-24] MEDS: amLODIPine BESYLATE 10 MG TABLET (FP) PO SCH (10:16)
[2017-12-24] MEDS: BACITRACIN 0.9 GM PACKET TP SCH ×2 (16:50→22:01)
--- NOTE | 2017-12-24 16:52 | PN ---
[facility] Progress Note Note: Patient evaluated for dressing placed 12/20/17 on the right groin and needs changing. As per patient he had cardiac cath done 1 1/2 week ago, reports initial surgical dressing was changed by the surgeon. Patient AO x 3, ambulating Skin is clean and intact, with mild dirt, no signs and symptoms of infection present. Bacitracin BID TOP Continue to monitor
[2017-12-24] MEDS: CYCLOBENZAPRINE HCL 10 MG TABLET (FP) PO PRN (21:25)
[2017-12-24] MEDS: THIAMINE HCL 100 MG TABLET (FP) PO SCH (21:25)
[2017-12-24] MEDS: LIDOCAINE PATCH REMOVAL MC SCH (21:26)
[2017-12-25] MEDS: NICOTINE 21 MG/24 HOURS TOPICAL PATCH TD SCH (10:17)
[2017-12-25] MEDS: amLODIPine BESYLATE 10 MG TABLET (FP) PO SCH (10:17)
[2017-12-25] MEDS: BACITRACIN 0.9 GM PACKET TP SCH ×2 (10:17→22:13)
[2017-12-25] MEDS: LISINOPRIL 5 MG TABLET (FP) PO SCH (10:18)
[2017-12-25] MEDS: PRENATAL VITAMINS W/ FOLIC ACID TABLET (FP) PO SCH (10:18)
[2017-12-25] MEDS: LIDOCAINE 5% TOPICAL PATCH TP SCH (11:28)
[2017-12-25] MEDS: THIAMINE HCL 100 MG TABLET (FP) PO SCH (21:42)
[2017-12-25] MEDS: LIDOCAINE PATCH REMOVAL MC SCH (22:14)
[2017-12-26] MEDS: LISINOPRIL 5 MG TABLET (FP) PO SCH (09:52)
[2017-12-26] MEDS: LIDOCAINE 5% TOPICAL PATCH TP SCH (09:52)
[2017-12-26] MEDS: amLODIPine BESYLATE 10 MG TABLET (FP) PO SCH (09:52)
[2017-12-26] MEDS: PRENATAL VITAMINS W/ FOLIC ACID TABLET (FP) PO SCH (09:53)
[2017-12-26] MEDS: NICOTINE 21 MG/24 HOURS TOPICAL PATCH TD SCH (09:53)
[2017-12-26] MEDS: BACITRACIN 0.9 GM PACKET TP SCH ×2 (09:53→21:41)
--- NOTE | 2017-12-26 12:07 | PN ---
[facility] Progress Note (SOAP) Subjective: old left arm pain , old associated with nmbness and stabbing pain. no h/o injury Objective: 12/26/17 12:05 Vital Signs - 8 hr 12/26/17 12/26/17 07:04 10:00 Temperature 96.3 F L Pulse Rate 94 H 89 Respiratory 18 18 Rate Blood Pressure 143/74 147/93 Laboratory Tests 12/20/17 12/20/17 12/20/17 08:20 08:20 08:20 WBC 3.9 L RBC 4.05 Hgb 11.1 L Hct 34.3 L MCV 84.6 MCH 27.5 MCHC 32.4 RDW 14.1 Plt Count 190 MPV 9.8 Sodium 143 Potassium 3.8 Chloride 108 H Carbon Dioxide 30 Anion Gap 5 L BUN 28 H D Creatinine 1.7 H Creat Clearance w eGFR 41.32 Random Glucose 103 Calcium 7.9 L Total Bilirubin 0.2 D AST 22 D ALT 29 D Alkaline Phosphatase 129 H D Total Protein 6.3 L Albumin 2.8 L Urine Color Urine Appearance Urine pH Ur Specific [place] Urine Protein Urine Glucose (UA) Urine Ketones Urine Blood Urine Nitrite Urine Bilirubin Urine Urobilinogen Ur Leukocyte Esterase RPR Titer Nonreactive 12/20/17 18:29 WBC RBC Hgb Hct MCV MCH MCHC RDW Plt Count MPV Sodium Potassium Chloride Carbon Dioxide Anion Gap BUN Creatinine Creat Clearance w eGFR Random Glucose Calcium Total Bilirubin AST ALT Alkaline Phosphatase Total Protein Albumin Urine Color Yellow Urine Appearance Clear Urine pH 6.0 Ur Specific [place] 1.021 Urine Protein Negative Urine Glucose (UA) Negative Urine Ketones Negative Urine Blood Negative Urine Nitrite Negative Urine Bilirubin Negative Urine Urobilinogen Negative Ur Leukocyte Esterase Negative RPR Titer numb left arm, decreawsed range of mothion, no deformity or inection noted Assessment: 12/26/17 12:06 neurotpathic degenerative pain left arm - will start neurontin, elavil fo andre, f /u PCP when dischargeed
[2017-12-26] MEDS: GABAPENTIN 100 MG CAPSULE (FP) PO SCH ×2 (14:17→21:42)
[2017-12-26] MEDS: THIAMINE HCL 100 MG TABLET (FP) PO SCH (21:42)
[2017-12-26] MEDS: LIDOCAINE PATCH REMOVAL MC SCH (21:42)
[2017-12-26] MEDS ORDERED: AMITRIPTYLINE HCL 50 MG TABLET PO SCH (22:00)
[2017-12-27] MEDS: GABAPENTIN 100 MG CAPSULE (FP) PO SCH ×3 (06:03→21:27)
[2017-12-27 10:12] LABS: ANION GAP 6 (8-16); BLOOD UREA NITROGEN 31 mg/dL (7-18); CALCIUM 8.5 mg/dL (8.5-10.1); CHLORIDE 104 mmol/L (98-107); CO2 30 mmol/L (21-32); CREATININE 1.5 mg/dL (0.7-1.3); GLUCOSE,RANDOM 111 mg/dL (74-106); POTASSIUM 4.1 mmol/L (3.5-5.1); SODIUM 140 mmol/L (136-145)
[2017-12-27] MEDS: LISINOPRIL 5 MG TABLET (FP) PO SCH (10:34)
[2017-12-27] MEDS: amLODIPine BESYLATE 10 MG TABLET (FP) PO SCH (10:34)
[2017-12-27] MEDS: BACITRACIN 0.9 GM PACKET TP SCH ×2 (10:34→21:28)
[2017-12-27] MEDS: NICOTINE 21 MG/24 HOURS TOPICAL PATCH TD SCH (10:34)
[2017-12-27] MEDS: PRENATAL VITAMINS W/ FOLIC ACID TABLET (FP) PO SCH (10:34)
[2017-12-27] MEDS: LIDOCAINE 5% TOPICAL PATCH TP SCH (10:35)
[2017-12-27] MEDS: THIAMINE HCL 100 MG TABLET (FP) PO SCH (21:27)
[2017-12-27] MEDS: CYCLOBENZAPRINE HCL 10 MG TABLET (FP) PO PRN (21:27)
[2017-12-27] MEDS: AMITRIPTYLINE HCL 25 MG TABLET (FP) PO SCH (21:28)
[2017-12-27] MEDS: LIDOCAINE PATCH REMOVAL MC SCH (21:28)
[2017-12-28] MEDS: GABAPENTIN 100 MG CAPSULE (FP) PO SCH ×3 (06:16→21:38)
[2017-12-28] MEDS: PRENATAL VITAMINS W/ FOLIC ACID TABLET (FP) PO SCH (10:11)
[2017-12-28] MEDS: amLODIPine BESYLATE 10 MG TABLET (FP) PO SCH (10:11)
[2017-12-28] MEDS: LISINOPRIL 5 MG TABLET (FP) PO SCH (10:11)
[2017-12-28] MEDS: BACITRACIN 0.9 GM PACKET TP SCH ×2 (10:11→21:38)
[2017-12-28] MEDS: NICOTINE 21 MG/24 HOURS TOPICAL PATCH TD SCH (10:12)
[2017-12-28] MEDS: LIDOCAINE 5% TOPICAL PATCH TP SCH (10:12)
[2017-12-28] MEDS ORDERED: LISINOPRIL 5 MG TABLET (FP) PO SCH (12:38)
[2017-12-28] MEDS ORDERED: NICOTINE POLACRILEX 4 MG GUM BC PRN (12:40)
[2017-12-28] MEDS ORDERED: LISINOPRIL 5 MG TABLET (FP) PO ONE (14:00)
[2017-12-28] MEDS ORDERED: cloNIDine HCL 0.1 MG TABLET PO ONE (14:00)
[2017-12-28] MEDS: NICOTINE 14 MG/24 HOURS TOPICAL PATCH TD SCH (15:34)
[2017-12-28] MEDS: CYCLOBENZAPRINE HCL 10 MG TABLET (FP) PO PRN (21:38)
[2017-12-28] MEDS: AMITRIPTYLINE HCL 25 MG TABLET (FP) PO SCH (21:38)
[2017-12-28] MEDS: THIAMINE HCL 100 MG TABLET (FP) PO SCH (21:38)
[2017-12-28] MEDS: LIDOCAINE PATCH REMOVAL MC SCH (21:39)
[2017-12-29] MEDS: GABAPENTIN 100 MG CAPSULE (FP) PO SCH ×3 (06:57→21:26)
[2017-12-29] MEDS: LISINOPRIL 10 MG TABLET (FP) PO SCH (10:02)
[2017-12-29] MEDS: PRENATAL VITAMINS W/ FOLIC ACID TABLET (FP) PO SCH (10:03)
[2017-12-29] MEDS: NICOTINE 14 MG/24 HOURS TOPICAL PATCH TD SCH (10:03)
[2017-12-29] MEDS: BACITRACIN 0.9 GM PACKET TP SCH ×2 (10:03→21:26)
[2017-12-29] MEDS: amLODIPine BESYLATE 10 MG TABLET (FP) PO SCH (10:03)
[2017-12-29] MEDS: LIDOCAINE 5% TOPICAL PATCH TP SCH (10:03)
[2017-12-29] MEDS: CYCLOBENZAPRINE HCL 10 MG TABLET (FP) PO PRN (21:26)
[2017-12-29] MEDS: LIDOCAINE PATCH REMOVAL MC SCH (21:26)
[2017-12-29] MEDS: AMITRIPTYLINE HCL 25 MG TABLET (FP) PO SCH (21:26)
[2017-12-29] MEDS: THIAMINE HCL 100 MG TABLET (FP) PO SCH (21:26)
[2017-12-30] MEDS: GABAPENTIN 100 MG CAPSULE (FP) PO SCH ×3 (06:28→21:46)
[2017-12-30] MEDS: PRENATAL VITAMINS W/ FOLIC ACID TABLET (FP) PO SCH (09:59)
[2017-12-30] MEDS: LISINOPRIL 10 MG TABLET (FP) PO SCH (09:59)
[2017-12-30] MEDS: amLODIPine BESYLATE 10 MG TABLET (FP) PO SCH (10:00)
[2017-12-30] MEDS: LIDOCAINE 5% TOPICAL PATCH TP SCH (10:00)
[2017-12-30] MEDS: BACITRACIN 0.9 GM PACKET TP SCH ×2 (10:00→22:16)
[2017-12-30] MEDS: NICOTINE 14 MG/24 HOURS TOPICAL PATCH TD SCH (10:00)
[2017-12-30] MEDS: AMITRIPTYLINE HCL 25 MG TABLET (FP) PO SCH (21:46)
[2017-12-30] MEDS: THIAMINE HCL 100 MG TABLET (FP) PO SCH (21:46)
[2017-12-30] MEDS: LIDOCAINE PATCH REMOVAL MC SCH (22:16)
[2017-12-31] MEDS: GABAPENTIN 100 MG CAPSULE (FP) PO SCH ×3 (06:17→21:22)
[2017-12-31] MEDS: LISINOPRIL 10 MG TABLET (FP) PO SCH (09:58)
[2017-12-31] MEDS: amLODIPine BESYLATE 10 MG TABLET (FP) PO SCH (09:58)
[2017-12-31] MEDS: PRENATAL VITAMINS W/ FOLIC ACID TABLET (FP) PO SCH (09:58)
[2017-12-31] MEDS: LIDOCAINE 5% TOPICAL PATCH TP SCH (09:59)
[2017-12-31] MEDS: BACITRACIN 0.9 GM PACKET TP SCH ×2 (09:59→22:15)
[2017-12-31] MEDS: NICOTINE 14 MG/24 HOURS TOPICAL PATCH TD SCH (09:59)
[2017-12-31] MEDS: THIAMINE HCL 100 MG TABLET (FP) PO SCH (21:22)
[2017-12-31] MEDS: CYCLOBENZAPRINE HCL 10 MG TABLET (FP) PO PRN (21:22)
[2017-12-31] MEDS: AMITRIPTYLINE HCL 25 MG TABLET (FP) PO SCH (21:22)
[2017-12-31] MEDS: LIDOCAINE PATCH REMOVAL MC SCH (21:23)
[2018-01-01] MEDS: GABAPENTIN 100 MG CAPSULE (FP) PO SCH ×3 (06:19→21:23)
[2018-01-01] MEDS: LIDOCAINE 5% TOPICAL PATCH TP SCH (09:49)
[2018-01-01] MEDS: NICOTINE 14 MG/24 HOURS TOPICAL PATCH TD SCH (09:49)
[2018-01-01] MEDS: LISINOPRIL 10 MG TABLET (FP) PO SCH (09:49)
[2018-01-01] MEDS: PRENATAL VITAMINS W/ FOLIC ACID TABLET (FP) PO SCH (09:49)
[2018-01-01] MEDS: BACITRACIN 0.9 GM PACKET TP SCH ×2 (09:49→21:41)
[2018-01-01] MEDS: amLODIPine BESYLATE 10 MG TABLET (FP) PO SCH (09:49)
[2018-01-01] MEDS: AMITRIPTYLINE HCL 25 MG TABLET (FP) PO SCH (21:23)
[2018-01-01] MEDS: THIAMINE HCL 100 MG TABLET (FP) PO SCH (21:23)
[2018-01-01] MEDS: CYCLOBENZAPRINE HCL 10 MG TABLET (FP) PO PRN (21:23)
[2018-01-01] MEDS: LIDOCAINE PATCH REMOVAL MC SCH (21:41)
[2018-01-02] MEDS: GABAPENTIN 100 MG CAPSULE (FP) PO SCH ×3 (06:51→21:15)
[2018-01-02] MEDS: LISINOPRIL 10 MG TABLET (FP) PO SCH (10:03)
[2018-01-02] MEDS: amLODIPine BESYLATE 10 MG TABLET (FP) PO SCH (10:03)
[2018-01-02] MEDS: PRENATAL VITAMINS W/ FOLIC ACID TABLET (FP) PO SCH (10:03)
[2018-01-02] MEDS: LIDOCAINE 5% TOPICAL PATCH TP SCH (10:04)
[2018-01-02] MEDS: NICOTINE 14 MG/24 HOURS TOPICAL PATCH TD SCH (10:04)
[2018-01-02] MEDS: BACITRACIN 0.9 GM PACKET TP SCH ×2 (10:04→21:53)
[2018-01-02] MEDS: THIAMINE HCL 100 MG TABLET (FP) PO SCH (21:15)
[2018-01-02] MEDS: AMITRIPTYLINE HCL 25 MG TABLET (FP) PO SCH (21:15)
[2018-01-02] MEDS: CYCLOBENZAPRINE HCL 10 MG TABLET (FP) PO PRN (21:15)
[2018-01-02] MEDS: LIDOCAINE PATCH REMOVAL MC SCH (21:16)
[2018-01-03] MEDS: GABAPENTIN 100 MG CAPSULE (FP) PO SCH ×3 (06:21→21:23)
[2018-01-03] MEDS: LISINOPRIL 10 MG TABLET (FP) PO SCH (10:09)
[2018-01-03] MEDS: NICOTINE 14 MG/24 HOURS TOPICAL PATCH TD SCH (10:09)
[2018-01-03] MEDS: amLODIPine BESYLATE 10 MG TABLET (FP) PO SCH (10:09)
[2018-01-03] MEDS: BACITRACIN 0.9 GM PACKET TP SCH ×2 (10:09→21:23)
[2018-01-03] MEDS: PRENATAL VITAMINS W/ FOLIC ACID TABLET (FP) PO SCH (10:09)
[2018-01-03] MEDS: LIDOCAINE 5% TOPICAL PATCH TP SCH (10:09)
[2018-01-03] MEDS: AMITRIPTYLINE HCL 25 MG TABLET (FP) PO SCH (21:23)
[2018-01-03] MEDS: CYCLOBENZAPRINE HCL 10 MG TABLET (FP) PO PRN (21:23)
[2018-01-03] MEDS: THIAMINE HCL 100 MG TABLET (FP) PO SCH (21:23)
[2018-01-03] MEDS: LIDOCAINE PATCH REMOVAL MC SCH (21:24)
[2018-01-04] MEDS: GABAPENTIN 100 MG CAPSULE (FP) PO SCH ×3 (06:09→21:46)
[2018-01-04] MEDS: BACITRACIN 0.9 GM PACKET TP SCH ×2 (09:42→21:46)
[2018-01-04] MEDS: amLODIPine BESYLATE 10 MG TABLET (FP) PO SCH (09:42)
[2018-01-04] MEDS: PRENATAL VITAMINS W/ FOLIC ACID TABLET (FP) PO SCH (09:42)
[2018-01-04] MEDS: NICOTINE 14 MG/24 HOURS TOPICAL PATCH TD SCH (09:43)
[2018-01-04] MEDS: LIDOCAINE 5% TOPICAL PATCH TP SCH (09:43)
[2018-01-04] MEDS: LISINOPRIL 10 MG TABLET (FP) PO SCH (09:43)
[2018-01-04] MEDS: AMITRIPTYLINE HCL 25 MG TABLET (FP) PO SCH (21:46)
[2018-01-04] MEDS: THIAMINE HCL 100 MG TABLET (FP) PO SCH (21:46)
[2018-01-04] MEDS: LIDOCAINE PATCH REMOVAL MC SCH (21:48)
[2018-01-05] MEDS: GABAPENTIN 100 MG CAPSULE (FP) PO SCH ×3 (06:07→21:26)
[2018-01-05] MEDS: PRENATAL VITAMINS W/ FOLIC ACID TABLET (FP) PO SCH (09:34)
[2018-01-05] MEDS: BACITRACIN 0.9 GM PACKET TP SCH ×2 (09:35→21:27)
[2018-01-05] MEDS: amLODIPine BESYLATE 10 MG TABLET (FP) PO SCH (09:35)
[2018-01-05] MEDS: LIDOCAINE 5% TOPICAL PATCH TP SCH (09:35)
[2018-01-05] MEDS: NICOTINE 14 MG/24 HOURS TOPICAL PATCH TD SCH (09:35)
[2018-01-05] MEDS: LISINOPRIL 10 MG TABLET (FP) PO SCH (09:37)
[2018-01-05] MEDS: AMITRIPTYLINE HCL 25 MG TABLET (FP) PO SCH (21:26)
[2018-01-05] MEDS: THIAMINE HCL 100 MG TABLET (FP) PO SCH (21:26)
[2018-01-05] MEDS: CYCLOBENZAPRINE HCL 10 MG TABLET (FP) PO PRN (21:26)
[2018-01-05] MEDS: LIDOCAINE PATCH REMOVAL MC SCH (21:27)
[2018-01-06] MEDS: GABAPENTIN 100 MG CAPSULE (FP) PO SCH ×3 (06:19→21:29)
[2018-01-06] MEDS: PRENATAL VITAMINS W/ FOLIC ACID TABLET (FP) PO SCH (10:02)
[2018-01-06] MEDS: LISINOPRIL 10 MG TABLET (FP) PO SCH (10:03)
[2018-01-06] MEDS: amLODIPine BESYLATE 10 MG TABLET (FP) PO SCH (10:03)
[2018-01-06] MEDS: NICOTINE 14 MG/24 HOURS TOPICAL PATCH TD SCH (10:03)
[2018-01-06] MEDS: BACITRACIN 0.9 GM PACKET TP SCH ×2 (10:03→21:30)
[2018-01-06] MEDS: LIDOCAINE 5% TOPICAL PATCH TP SCH (10:03)
[2018-01-06] MEDS: THIAMINE HCL 100 MG TABLET (FP) PO SCH (21:29)
[2018-01-06] MEDS: AMITRIPTYLINE HCL 25 MG TABLET (FP) PO SCH (21:29)
[2018-01-06] MEDS: LIDOCAINE PATCH REMOVAL MC SCH (21:29)
[2018-01-07] MEDS: GABAPENTIN 100 MG CAPSULE (FP) PO SCH ×3 (06:43→21:29)
[2018-01-07] MEDS ORDERED: cloNIDine HCL 0.1 MG TABLET PO ONE (07:09)
[2018-01-07] MEDS: BACITRACIN 0.9 GM PACKET TP SCH ×2 (10:04→21:29)
[2018-01-07] MEDS: amLODIPine BESYLATE 10 MG TABLET (FP) PO SCH (10:04)
[2018-01-07] MEDS: NICOTINE 14 MG/24 HOURS TOPICAL PATCH TD SCH (10:04)
[2018-01-07] MEDS: LIDOCAINE 5% TOPICAL PATCH TP SCH (10:04)
[2018-01-07] MEDS: PRENATAL VITAMINS W/ FOLIC ACID TABLET (FP) PO SCH (10:05)
[2018-01-07] MEDS: LISINOPRIL 10 MG TABLET (FP) PO SCH (10:05)
[2018-01-07] MEDS: CYCLOBENZAPRINE HCL 10 MG TABLET (FP) PO PRN (21:29)
[2018-01-07] MEDS: THIAMINE HCL 100 MG TABLET (FP) PO SCH (21:29)
[2018-01-07] MEDS: AMITRIPTYLINE HCL 25 MG TABLET (FP) PO SCH (21:29)
[2018-01-07] MEDS: LIDOCAINE PATCH REMOVAL MC SCH (21:30)
[2018-01-08] MEDS: GABAPENTIN 100 MG CAPSULE (FP) PO SCH ×3 (06:25→21:20)
[2018-01-08] MEDS: amLODIPine BESYLATE 10 MG TABLET (FP) PO SCH (09:25)
[2018-01-08] MEDS: LISINOPRIL 10 MG TABLET (FP) PO SCH (09:25)
[2018-01-08] MEDS: PRENATAL VITAMINS W/ FOLIC ACID TABLET (FP) PO SCH (09:25)
[2018-01-08] MEDS: BACITRACIN 0.9 GM PACKET TP SCH ×2 (09:26→21:20)
[2018-01-08] MEDS: LIDOCAINE 5% TOPICAL PATCH TP SCH (09:26)
[2018-01-08] MEDS: NICOTINE 14 MG/24 HOURS TOPICAL PATCH TD SCH (09:26)
[2018-01-08] MEDS: AMITRIPTYLINE HCL 25 MG TABLET (FP) PO SCH (21:20)
[2018-01-08] MEDS: CYCLOBENZAPRINE HCL 10 MG TABLET (FP) PO PRN (21:20)
[2018-01-08] MEDS: LIDOCAINE PATCH REMOVAL MC SCH (21:21)
[2018-01-08] MEDS: THIAMINE HCL 100 MG TABLET (FP) PO SCH (21:21)
[2018-01-09] MEDS: GABAPENTIN 100 MG CAPSULE (FP) PO SCH ×3 (06:40→21:28)
[2018-01-09] MEDS: LISINOPRIL 10 MG TABLET (FP) PO SCH (09:24)
[2018-01-09] MEDS: PRENATAL VITAMINS W/ FOLIC ACID TABLET (FP) PO SCH (09:24)
[2018-01-09] MEDS: amLODIPine BESYLATE 10 MG TABLET (FP) PO SCH (09:24)
[2018-01-09] MEDS: NICOTINE 14 MG/24 HOURS TOPICAL PATCH TD SCH (09:24)
[2018-01-09] MEDS: LIDOCAINE 5% TOPICAL PATCH TP SCH (09:24)
[2018-01-09] MEDS: BACITRACIN 0.9 GM PACKET TP SCH ×2 (09:25→21:27)
[2018-01-09] MEDS: AMITRIPTYLINE HCL 25 MG TABLET (FP) PO SCH (21:27)
[2018-01-09] MEDS: CYCLOBENZAPRINE HCL 10 MG TABLET (FP) PO PRN (21:28)
[2018-01-09] MEDS: THIAMINE HCL 100 MG TABLET (FP) PO SCH (21:28)
[2018-01-09] MEDS: LIDOCAINE PATCH REMOVAL MC SCH (21:29)
[2018-01-10] MEDS: GABAPENTIN 100 MG CAPSULE (FP) PO SCH (06:10)
[2018-01-10 06:54] VITALS: BP 137/92; PULSE 94; TEMP 97.3
--- NOTE | 2018-01-10 08:16 | PN ---
Psychiatric Progress Note Vital Signs: Vital Signs Period Temp Pulse Resp BP Sys/Delgado Pulse Ox Last 24 Hr 97.3 F 87-94 16-20 135-170/85-112 Date of Session: 01/10/18 Chief Complaint:: Discharge Note HPI: Patient addressing Alcohol, Cocaine and Cannabis Dependence comorbid with Nicotine Dependence ROS: HTN, HLD, Chronoc back pain Current Medications: Active Medications Generic Name Dose Route Start Last Admin Trade Name Freq PRN Reason Stop Dose Admin Acetaminophen 650 mg 12/20/17 10:48 Tylenol - PO Q4H PRN FEVER Al Hydroxide/Mg Hydroxide 30 ml 12/20/17 10:48 Mylanta Oral Suspension - PO Q6H PRN DYSPEPSIA Amitriptyline HCl 50 mg 12/27/17 22:00 01/09/18 21:27 Elavil - PO 50 mg HS HERSON Administration Amlodipine Besylate 10 mg 12/22/17 16:30 01/09/18 09:24 Norvasc - PO 10 mg DAILY HERSON Administration Bacitracin 0.9 gm 12/24/17 16:47 01/09/18 21:27 Bacitracin - TP 0.9 gm BID HERSON Administration Cyclobenzaprine HCl 10 mg 12/22/17 15:44 01/09/18 21:28 Flexeril - PO 10 mg TID PRN Administration MUSCLE SPASMS Eucalyptus/Menthol/Phenol/Sorbitol 1 each 12/20/17 10:48 Cepastat Lozenge - MM Q4H PRN SORE THROAT Gabapentin 100 mg 12/26/17 14:00 01/10/18 06:10 Neurontin - PO 100 mg TID HERSON Administration Guaifenesin 10 ml 12/20/17 10:48 Robitussin Dm - PO Q6H PRN COUGH Hydroxyzine Pamoate 50 mg 12/20/17 10:48 Vistaril - PO Q4H PRN AGITATION Lidocaine 1 patch 12/20/17 16:30 01/09/18 09:24 Lidoderm Patch - TP Not Given DAILY HERSON Lisinopril 10 mg 12/29/17 10:00 01/09/18 09:24 Prinivil PO 10 mg DAILY HERSON Administration Loperamide HCl 4 mg 12/20/17 10:48 Imodium - PO Q6H PRN DIARRHEA Magnesium Citrate 300 ml 12/20/17 10:48 Citroma - PO Q48H PRN CONSTIPATION Magnesium Hydroxide 30 ml 12/20/17 10:48 Milk Of Magnesia - PO DAILY PRN CONSTIPATION Miscellaneous 1 each 12/20/17 22:00 01/09/18 21:29 Lidoderm Patch Removal MC Not Given DAILY@2200 HERSON Nicotine 14 mg 12/28/17 14:00 01/09/18 09:24 Nicoderm Patch - TD Not Given DAILY HERSON Nicotine Polacrilex 2 mg 12/28/17 12:40 Nicorette Gum - BC Q2H PRN NICOTINE REPLACEMENT RX Multivit/Folic Acid/Iron 1 tab 12/21/17 10:00 01/09/18 09:24 Vitamins (Sjr) - PO 1 tab DAILY HERSON Administration Pseudoephedrine/Triprolidine 1 combo 12/20/17 10:48 Actifed - PO TID PRN NASAL CONGESTION Thiamine HCl 100 mg 12/20/17 22:00 01/09/18 21:28 Vitamin B1 - PO 100 mg HS HERSON Administration Current Side Effect: No Lab tests ordered: Yes Lab tests reviewed: Yes Provider note:: Jacquelin has completed this program today. He has met his treatment goals and will continue to address his issues in outpatient treatment at [facility]. 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 He is stable for discharge today Total face to face time:: 35 Mental Status Exam - Mental Status Exam Alert and Oriented to: Time, Place, Person Cognitive Function: Fair Patient Appearance: Well Groomed Mood: Hopeful, Euthymic Affect: Appropriate Patient Behavior: Cooperative Speech Pattern: Clear Voice Loudness: Normal Thought Process: Intact, Goal Oriented Thought Disorder: Not Present Hallucinations: Denies Suicidal Ideation: Denies Homicidal Ideation: Denies Insight/Judgement: Fair Sleep: Fair Appetite: Good Muscle strength/Tone: Normal Gait/Station: Normal Psychiatric Treatment Plan - Problem List (1) Alcohol dependence Current Visit: Yes (2) Cocaine dependence Current Visit: Yes (3) Cannabis dependence Current Visit: Yes (4) Nicotine dependence Current Visit: No Qualifiers: (5) Hypertension Current Visit: No Qualifiers: (6) Hyperlipidemia Current Visit: Yes (7) Chronic low back pain Current Visit: No Initial treatment plan: Patient is discharged today and referred to [facility] for outpatient treatment
== END 2018-01-10 09:06 | disposition home or self-care (01) | DRG 772 ==
LOC: YASAS 08:24 → Y3W 15:58
PROVIDERS: ADMIT Psychiatry & Neurology Psychiatry; ATTEND Psychiatry & Neurology Psychiatry
PROC: HZ42ZZZ Group Counseling for Substance Abuse Treatment, Cognitive-Behavioral (ICD-10-PCS; principal; 2017-12-20)
DX: F10.20 Alcohol dependence, uncomplicated (principal); F14.20 Cocaine dependence, uncomplicated; F12.20 Cannabis dependence, uncomplicated; F17.210 Nicotine dependence, cigarettes, uncomplicated; I10 Essential (primary) hypertension; E78.5 Hyperlipidemia, unspecified; M54.5 Low back pain; G89.29 Other chronic pain; M79.602 Pain in left arm; Z48.01 Encounter for change or removal of surgical wound dressing; Z91.14 Patient's other noncompliance with medication regimen
CPT/HCPCS: 36415; 80048; 80053; 81003; 85027; 86593; 93005; 93010; J0735

== ENCOUNTER 2018-02-12 09:58 | Inpatient (IN) | payer OTHER ==
[2018-02-12 10:02] VITALS: BMI 23.7
--- NOTE | 2018-02-12 11:04 | HP ---
CIWA Score - CIWA Score Nausea/Vomitin-Mild Nausea/No Vomiting Muscle Tremors: 2 Anxiety: 4-Mod. Anxious/Guarded Agitation: 0-Normal Activity Paroxysmal Sweats: 1-Minimal Palms Moist Orientation: 0-Oriented Tacttile Disturbances: 1-Very Mild Itch/Numbness Auditory Disturbances: 1-Very Mild Visual Disturbances: 1-Very Mild Sensitivity Headache: 3-Moderate CIWA-Ar Total Score: 14 Admission ROS BHS - HPI Chief Complaint: I need to get clean for my pain doctor Allergies/Adverse Reactions: Allergies Allergy/AdvReac Type Severity Reaction Status Date / Time No Known Allergies Allergy Verified 02/12/18 10:46 History of Present Illness: 62 yo gentleman here for detox from alcohol and cocaine, this is one of several admissions for detox. Denies seizures or black outs. [place] noted to be on oxycodone 30mg, urine tox negative for oxycodone - states the police took it from him a week ago. He is aware he cannot get this while inpatient. States he was in ED [facility] yesterday as needed BP meds. Exam Limitations: Clinical Condition - Ebola screening Have you traveled outside of the country in the last 21 days: No (N) Have you had contact with anyone from an Ebola affected area: No Have you been sick,other than usual withdrawal symptoms: No Do you have a fever: No - Review of Systems Constitutional: Loss of Appetite, Malaise, Changes in sleep, Weakness EENT: reports: No Symptoms Reported Respiratory: reports: No Symptoms reported Cardiac: reports: No Symptoms Reported GI: reports: Nausea, Poor Appetite, Poor Fluid Intake : reports: No Symptoms Reported Musculoskeletal: reports: Back Pain Integumentary: reports: No Symptoms Reported Neuro: reports: Headache Endocrine: reports: No Symptoms Reported Hematology: reports: No Symptoms Reported Psychiatric: reports: Judgement Intact, Mood/Affect Appropiate, Orientated x3, Anxious Other Systems: Reviewed and Negative Patient History - Patient Medical History Hx Anemia: No Hx Asthma: No Hx Chronic Obstructive Pulmonary Disease (COPD): No Hx Cancer: No Hx Cardiac Disorders: No Hx Congestive Heart Failure: No Hx Hypertension: Yes Hx Hypercholesterolemia: Yes (In past, not taking any current medications.) Hx Pacemaker: No HX Cerebrovascular Accident: No Hx Seizures: No Hx Dementia: No Hx Diabetes: No Hx Gastrointestinal Disorders: No Hx Liver Disease: No Hx Genitourinary Disorders: No Hx Sexually Transmitted Disorders: No Hx Renal Disease (ESRD): Yes (renal insufficiency stage III) Hx Thyroid Disease: No Hx Human Immunodeficiency Virus (HIV): No Hx Hepatitis C: No Hx Depression: No Hx Suicide Attempt: No Hx Bipolar Disorder: No Hx Schizophrenia: No Other Medical History: back pain - Patient Surgical History Past Surgical History: No Hx Neurologic Surgery: No Hx Cataract Extraction: No Hx Cardiac Surgery: No Hx Lung Surgery: No Hx Breast Surgery: No Hx Breast Biopsy: No Hx Abdominal Surgery: No Hx Appendectomy: No Hx Cholecystectomy: No Hx Genitourinary Surgery: No Hx Section: No Hx Orthopedic Surgery: No Anesthesia Reaction: No - PPD History Previous Implant?: Yes Documented Results: Positive w/proof Implanted On Prior [facility] Admission?: Yes Date: 09/08/17 Results: 0MM PPD to be Administered?: No - Reproductive History Patient is a Female of Child Bearing Age (11 -55 yrs old): No (male) - Smoking Cessation Smoking history: Current every day smoker Have you smoked in the past 12 months: Yes Aproximately how many cigarettes per day: 20 Cigars Per Day: 0 Hx Chewing Tobacco Use: No Initiated information on smoking cessation: Yes 'Breaking Loose' booklet given: 02/12/18 - Substance & Tx. History Hx Alcohol Use: Yes Hx Substance Use: Yes Substance Use Type: Alcohol, Cocaine, Marijuana Hx Substance Use Treatment: Yes (detox, rehab) - Substances Abused Cocaine Route: Inhalation Frequency: Daily Amount used: 2 GRM Age of first use: 19 Date of Last Use: 02/11/18 ETOH Route: Oral Frequency: Daily Amount used: 1 pINT GIN Age of first use: 42 Date of Last Use: 02/11/18 MARIJUANA Route: Smoking Frequency: Daily Amount used: 1 GRAM Age of first use: 17 Date of Last Use: 02/11/18 Family Disease History - Family Disease History Family Disease History: Heart Disease: Mother (CVA; .), Other: Father ( , no contact), Mother, Brother (one - living -healthy), Sister (one - living - healthy), Son (2 - living, healthy), Daughter (1 - living - healthy) Admission Physical Exam BHS - Vital Signs Vital Signs: Vital Signs - 24 hr 02/12/18 10:00 Temperature 97.5 F L Pulse Rate 79 Respiratory 18 Rate Blood Pressure 140/84 - Physical General Appearance: Yes: Nourished, Appropriately Dressed, Mild Distress, Irritable, Anxious HEENTM: Yes: EOMI, Hearing grossly Normal, Normocephalic, Normal Voice, Pharynx Normal Respiratory: Yes: Normal Breath Sounds, No Respiratory Distress Neck: Yes: No masses,lesions,Nodules, Supple Breast: Yes: Breast Exam Deferred Cardiology: Yes: Regular Rhythm, Regular Rate Abdominal: Yes: Non Tender, Flat Genitourinary: Yes: Frequency Back: Yes: Normal Inspection Musculoskeletal: Yes: Gait Steady, Back pain Extremities: Yes: Normal Inspection, Normal Range of Motion, Non-Tender Neurological: Yes: Fully Oriented, Alert, Motor Strength 5/5, Normal Mood/Affect , Normal Response Integumentary: Yes: Normal Color, Dry, Warm Lymphatic: Yes: Within Normal Limits - Diagnostic (1) Alcohol dependence with uncomplicated withdrawal Current Visit: Yes Status: Chronic (2) Cocaine dependence Current Visit: Yes Status: Chronic Qualifiers: Substance use status: uncomplicated Qualified Code(s): F14.20 - Cocaine dependence, uncomplicated (3) Chronic low back pain Current Visit: Yes Status: Chronic Qualifiers: Back pain laterality: midline Sciatica presence: without sciatica Qualified Code(s): M54.5 - Low back pain; G89.29 - Other chronic pain; G89.29 - Other chronic pain (4) Chronic renal insufficiency, stage III (moderate) Current Visit: Yes Status: Chronic (5) Hypertension Current Visit: Yes Status: Chronic Qualifiers: Hypertension type: essential hypertension Qualified Code(s): I10 - Essential (primary) hypertension (6) Nicotine dependence Current Visit: Yes Status: Chronic Qualifiers: Nicotine product type: cigarettes Substance use status: uncomplicated Qualified Code(s): F17.210 - Nicotine dependence, cigarettes, uncomplicated Cleared for Admission [facility] - Detox or Rehab [facility] Level of Care: Medically Managed Detox Regimen/Protocol: Librium [facility] Breath Alcohol Content Breath Alcohol Content: 0 Urine Drug Screen - Results Drug Screen Negative: No Urine Drug Screen Results: THC-Marijuana, NIDA-Cocaine
[2018-02-12] MEDS ORDERED: LOPERAMIDE HCL 2 MG CAPSULE PO PRN (11:14)
[2018-02-12] MEDS ORDERED: guaiFENesin/D-METHORPHAN HB 10 ML UNIT-DOSE CUPS PO PRN (11:14)
[2018-02-12] MEDS ORDERED: ACETAMINOPHEN 325 MG TABLET (FP) PO PRN (11:14)
[2018-02-12] MEDS ORDERED: MAGNESIUM HYDROX 2400MG/30ML ORAL SUSPENSION 30 ML CUP PO PRN (11:14)
[2018-02-12] MEDS ORDERED: MENTHOL/PHENOL 1 EACH UD MM PRN (11:14)
[2018-02-12] MEDS ORDERED: MAGNESIUM CITRATE 300 ML BOTTLE PO PRN (11:14)
[2018-02-12] MEDS ORDERED: IBUPROFEN 400 MG TABLET (FP) PO PRN (11:14)
[2018-02-12] MEDS ORDERED: MAG HYDROX/AL HYDROX/SIMETH 30 ML UNIT-DOSE CUP PO PRN (11:14)
[2018-02-12] MEDS ORDERED: P-EPHED 60MG/TRIPROLIDI 2.5MG TABLET PO PRN (11:14)
[2018-02-12] MEDS ORDERED: chlordiazePOXIDE HCL 25 MG CAPSULE PO PRN (11:14)
[2018-02-12] MEDS ORDERED: hydrOXYzine PAMOATE 25 MG CAPSULE (FP) PO PRN (11:14)
[2018-02-12] MEDS ORDERED: chlordiazePOXIDE HCL 25 MG CAPSULE PO ONE (11:45)
[2018-02-12 16:57] LABS: URINE APPEARANCE CLEAR; URINE BILIRUBIN NEGATIVE (<2.0 mg/dL); URINE BLOOD NEGATIVE (NEGATIVE); URINE COLOR YELLOW; URINE GLUCOSE (UA) NEGATIVE (NEGATIVE); URINE KETONE NEGATIVE (NEGATIVE); URINE LEUK ESTERASE TRACE (NEGATIVE); URINE NITRITE NEGATIVE (NEGATIVE); URINE PROTEIN NEGATIVE (NEGATIVE)
[2018-02-12 17:09] LABS: EPI CELLS RARE /HPF (FEW); URINE BACTERIA RARE /hpf (NONE SEEN); URINE HYALINE CAST 18 /lpf; URINE MUCUS RARE
[2018-02-12] MEDS: chlordiazePOXIDE HCL 25 MG CAPSULE PO SCH ×2 (17:30→22:32)
[2018-02-12] MEDS ORDERED: MELATONIN 5 MG TABLETS PO PRN (22:00)
[2018-02-12] MEDS: THIAMINE HCL 100 MG TABLET (FP) PO SCH (22:31)
[2018-02-12] MEDS: METHYL SALICYLATE/MENTHOL OINT 30 GM TUBE TP SCH (22:32)
[2018-02-13] MEDS: chlordiazePOXIDE HCL 25 MG CAPSULE PO SCH ×4 (06:19→23:07)
[2018-02-13] MEDS: METHYL SALICYLATE/MENTHOL OINT 30 GM TUBE TP SCH ×2 (10:31→23:06)
[2018-02-13 10:32] LABS: HEMATOCRIT 38.2 % (35.4-49); HEMOGLOBIN 12.5 GM/dL (11.7-16.9); MCHC 32.7 g/dl (32.0-35.9); MEAN CELL VOLUME 85.8 fl (80-96); MEAN PLT VOLUME 9.5 fl (7.5-11.1); PLATELET COUNT 229 K/MM3 (134-434); RBC 4.46 M/mm3 (4.00-5.60); RDW 14.2 % (11.9-15.9); WHITE BLOOD COUNT 4.5 K/mm3 (4.0-10.0)
[2018-02-13] MEDS: LISINOPRIL 10 MG TABLET (FP) PO SCH (10:34)
[2018-02-13] MEDS: HYDROCHLOROTHIAZIDE 25 MG TABLET (FP) PO SCH (10:34)
[2018-02-13] MEDS: amLODIPine BESYLATE 10 MG TABLET (FP) PO SCH (10:34)
[2018-02-13] MEDS: PRENATAL VITAMINS W/ FOLIC ACID TABLET (FP) PO SCH (10:34)
[2018-02-13 10:43] LABS: ALBUMIN 3.1 g/dl (3.4-5.0); ANION GAP 2 (8-16); BLOOD UREA NITROGEN 25 mg/dL (7-18); CALCIUM 8.2 mg/dL (8.5-10.1); CHLORIDE 108 mmol/L (98-107); CO2 33 mmol/L (21-32); CREATININE 1.6 mg/dL (0.7-1.3); GLUCOSE,RANDOM 94 mg/dL (74-106); POTASSIUM 3.8 mmol/L (3.5-5.1); SGOT/AST 27 U/L (15-37); SGPT/ALT 33 U/L (12-78); SODIUM 143 mmol/L (136-145)
[2018-02-13 10:45] LABS: ALK PHOS 129 U/L (45-117); TOT PROT 6.8 g/dl (6.4-8.2)
[2018-02-13 11:01] LABS: BILIRUBIN,TOTAL < 0.1 mg/dL (0.2-1.0)
--- NOTE | 2018-02-13 12:00 | PN ---
[facility] CIWA - CIWA Score Nausea/Vomitin-No Nausea/No Vomiting Muscle Tremors: 4-Moderate,w/Arms Extend Anxiety: 3 Agitation: 4-Moderately Restless Paroxysmal Sweats: 3 Orientation: 0-Oriented Tacttile Disturbances: 0-None Auditory Disturbances: 0-None Visual Disturbances: 0-None Headache: 0-None Present CIWA-Ar Total Score: 14 B[facility] Progress Note (SOAP) Subjective: sweats shakes interrupted sleep body aches Objective: 02/13/18 11:59 Vital Signs Temperature 95.9 F L 02/13/18 11:21 Pulse Rate 85 02/13/18 11:21 Respiratory Rate 20 02/13/18 11:21 Blood Pressure 157/95 02/13/18 11:21 O2 Sat by Pulse Oximetry (%) Laboratory Tests 02/12/18 02/13/18 02/13/18 14:30 07:30 07:30 WBC 4.5 RBC 4.46 Hgb 12.5 D Hct 38.2 MCV 85.8 MCH 28.0 MCHC 32.7 RDW 14.2 Plt Count 229 D MPV 9.5 Sodium 143 Potassium 3.8 Chloride 108 H Carbon Dioxide 33 H Anion Gap 2 L BUN 25 H Creatinine 1.6 H Creat Clearance w eGFR 44.31 Random Glucose 94 Calcium 8.2 L Total Bilirubin < 0.1 L D AST 27 D ALT 33 Alkaline Phosphatase 129 H Total Protein 6.8 Albumin 3.1 L Urine Color Yellow Urine Appearance Clear Urine pH 5.0 Ur Specific [place] 1.026 Urine Protein Negative Urine Glucose (UA) Negative Urine Ketones Negative Urine Blood Negative Urine Nitrite Negative Urine Bilirubin Negative Urine Urobilinogen 2.0 Ur Leukocyte Esterase Trace Urine WBC (Auto) 10 Urine RBC (Auto) 1 Ur Epithelial Cells Rare Urine Bacteria Rare Hyaline Casts 18 Urine Mucus Rare RPR Titer 02/13/18 07:30 WBC RBC Hgb Hct MCV MCH MCHC RDW Plt Count MPV Sodium Potassium Chloride Carbon Dioxide Anion Gap BUN Creatinine Creat Clearance w eGFR Random Glucose Calcium Total Bilirubin AST ALT Alkaline Phosphatase Total Protein Albumin Urine Color Urine Appearance Urine pH Ur Specific [place] Urine Protein Urine Glucose (UA) Urine Ketones Urine Blood Urine Nitrite Urine Bilirubin Urine Urobilinogen Ur Leukocyte Esterase Urine WBC (Auto) Urine RBC (Auto) Ur Epithelial Cells Urine Bacteria Hyaline Casts Urine Mucus RPR Titer Nonreactive aaox3 ambulating no acute distress Assessment: 02/13/18 11:59 withdrawal sx Plan: continue detox increase fluids
[2018-02-13] MEDS: THIAMINE HCL 100 MG TABLET (FP) PO SCH (23:07)
[2018-02-14] MEDS: chlordiazePOXIDE HCL 25 MG CAPSULE PO SCH ×2 (07:25→10:40)
[2018-02-14] MEDS: PRENATAL VITAMINS W/ FOLIC ACID TABLET (FP) PO SCH (10:39)
[2018-02-14] MEDS: LISINOPRIL 10 MG TABLET (FP) PO SCH (10:40)
[2018-02-14] MEDS: METHYL SALICYLATE/MENTHOL OINT 30 GM TUBE TP SCH ×2 (10:40→22:26)
[2018-02-14] MEDS: HYDROCHLOROTHIAZIDE 25 MG TABLET (FP) PO SCH (10:40)
[2018-02-14] MEDS: amLODIPine BESYLATE 10 MG TABLET (FP) PO SCH (11:54)
--- NOTE | 2018-02-14 12:42 | EKG ---
Test Reason : Blood Pressure : / mmHG Vent. Rate : 082 BPM Atrial Rate : 082 BPM P-R Int : 148 ms QRS Dur : 094 ms QT Int : 420 ms P-R-T Axes : 069 -28 -59 degrees QTc Int : 490 ms NORMAL SINUS RHYTHM VOLTAGE CRITERIA FOR LEFT VENTRICULAR HYPERTROPHY CANNOT RULE OUT SEPTAL INFARCT (CITED ON OR BEFORE 06-SEP-2017) T WAVE ABNORMALITY, CONSIDER INFEROLATERAL ISCHEMIA ABNORMAL ECG WHEN COMPARED WITH ECG OF 20-DEC-2017 22:08, COMPARED TO EKG NO SIGNIFICANT CHANGE IS FOUND Confirmed by FRANKIE GAMBLE MD ([id number]) on 02/14/2018 12:41:42 PM Referred By: Confirmed By:FRANKIE GAMBLE MD
--- NOTE | 2018-02-14 14:28 | PN ---
[facility] CIWA - CIWA Score Nausea/Vomitin-No Nausea/No Vomiting Muscle Tremors: 3 Anxiety: 4-Mod. Anxious/Guarded Agitation: 2 Paroxysmal Sweats: 3 Orientation: 0-Oriented Tacttile Disturbances: 2-Mild Itch/Numbness/Burn Auditory Disturbances: 0-None Visual Disturbances: 0-None Headache: 0-None Present CIWA-Ar Total Score: 14 S Progress Note (SOAP) Subjective: Fatigue, Tremors, Sweating. Objective: PATIENT A & O X 3, OBSERVED AMBULATING ON UNIT. NO ACUTE DISTRESS. 02/14/18 14:29 Vital Signs Temperature 96.7 F L 02/14/18 14:09 Pulse Rate 72 02/14/18 14:09 Respiratory Rate 18 02/14/18 14:09 Blood Pressure 158/90 02/14/18 14:09 O2 Sat by Pulse Oximetry (%) Laboratory Tests 02/12/18 02/13/18 02/13/18 14:30 07:30 07:30 WBC 4.5 RBC 4.46 Hgb 12.5 D Hct 38.2 MCV 85.8 MCH 28.0 MCHC 32.7 RDW 14.2 Plt Count 229 D MPV 9.5 Sodium 143 Potassium 3.8 Chloride 108 H Carbon Dioxide 33 H Anion Gap 2 L BUN 25 H Creatinine 1.6 H Creat Clearance w eGFR 44.31 Random Glucose 94 Calcium 8.2 L Total Bilirubin < 0.1 L D AST 27 D ALT 33 Alkaline Phosphatase 129 H Total Protein 6.8 Albumin 3.1 L Urine Color Yellow Urine Appearance Clear Urine pH 5.0 Ur Specific [place] 1.026 Urine Protein Negative Urine Glucose (UA) Negative Urine Ketones Negative Urine Blood Negative Urine Nitrite Negative Urine Bilirubin Negative Urine Urobilinogen 2.0 Ur Leukocyte Esterase Trace Urine WBC (Auto) 10 Urine RBC (Auto) 1 Ur Epithelial Cells Rare Urine Bacteria Rare Hyaline Casts 18 Urine Mucus Rare RPR Titer 02/13/18 07:30 WBC RBC Hgb Hct MCV MCH MCHC RDW Plt Count MPV Sodium Potassium Chloride Carbon Dioxide Anion Gap BUN Creatinine Creat Clearance w eGFR Random Glucose Calcium Total Bilirubin AST ALT Alkaline Phosphatase Total Protein Albumin Urine Color Urine Appearance Urine pH Ur Specific [place] Urine Protein Urine Glucose (UA) Urine Ketones Urine Blood Urine Nitrite Urine Bilirubin Urine Urobilinogen Ur Leukocyte Esterase Urine WBC (Auto) Urine RBC (Auto) Ur Epithelial Cells Urine Bacteria Hyaline Casts Urine Mucus RPR Titer Nonreactive LABS NOTED. RESULTS OF ADMISSION ECG NOTED. 02/14/18 14:33 Assessment: 02/14/18 14:29 WITHDRAWAL SYMPTOMS. HYPERTENSION. 02/14/18 14:33 Plan: CONTINUE DETOX. INCREASE DAILY PO FLUID INTAKE. INCREASE LISINOPRIL TO 20 MG PO DAILY FOR ELEVATED BP. PATIENT REPORTS THAT HE HAS PREVIOUSLY RECEIVED MEDICAL CONSULTATION FOR ECG / CARDIAC ABNORMALITIES. D/C IBUPROFEN AND MAGNESIUM-CONTAINING MEDS FOR ABNORMAL ADMISSION RENAL LAB VALUES.
[2018-02-14] MEDS ORDERED: LISINOPRIL 10 MG TABLET (FP) PO ONE (14:30)
[2018-02-14] MEDS: chlordiazePOXIDE 5 MG CAPSULE PO SCH ×2 (16:55→22:26)
[2018-02-14] MEDS: THIAMINE HCL 100 MG TABLET (FP) PO SCH (22:26)
[2018-02-15] MEDS: chlordiazePOXIDE 5 MG CAPSULE PO SCH (07:29)
[2018-02-15 09:12] VITALS: BP 138/96; PULSE 102; TEMP 97.1
[2018-02-15] MEDS ORDERED: LISINOPRIL 20 MG TABLET (FP) PO SCH (10:00)
--- NOTE | 2018-02-15 16:08 | PN ---
[facility] Progress Note (SOAP) Subjective: Patient denies current Detox symptoms and reports that he feels well overall. Objective: PATIENT A & O X 3, OBSERVED AMBULATING ON UNIT. NO ACUTE DISTRESS. 02/15/18 16:06 Vital Signs Temperature 97.1 F L 02/15/18 09:11 Pulse Rate 102 H 02/15/18 09:11 Respiratory Rate 16 02/15/18 09:11 Blood Pressure 138/96 02/15/18 09:11 O2 Sat by Pulse Oximetry (%) Laboratory Tests 02/12/18 02/13/18 02/13/18 14:30 07:30 07:30 WBC 4.5 RBC 4.46 Hgb 12.5 D Hct 38.2 MCV 85.8 MCH 28.0 MCHC 32.7 RDW 14.2 Plt Count 229 D MPV 9.5 Sodium 143 Potassium 3.8 Chloride 108 H Carbon Dioxide 33 H Anion Gap 2 L BUN 25 H Creatinine 1.6 H Creat Clearance w eGFR 44.31 Random Glucose 94 Calcium 8.2 L Total Bilirubin < 0.1 L D AST 27 D ALT 33 Alkaline Phosphatase 129 H Total Protein 6.8 Albumin 3.1 L Urine Color Yellow Urine Appearance Clear Urine pH 5.0 Ur Specific [place] 1.026 Urine Protein Negative Urine Glucose (UA) Negative Urine Ketones Negative Urine Blood Negative Urine Nitrite Negative Urine Bilirubin Negative Urine Urobilinogen 2.0 Ur Leukocyte Esterase Trace Urine WBC (Auto) 10 Urine RBC (Auto) 1 Ur Epithelial Cells Rare Urine Bacteria Rare Hyaline Casts 18 Urine Mucus Rare RPR Titer 02/13/18 07:30 WBC RBC Hgb Hct MCV MCH MCHC RDW Plt Count MPV Sodium Potassium Chloride Carbon Dioxide Anion Gap BUN Creatinine Creat Clearance w eGFR Random Glucose Calcium Total Bilirubin AST ALT Alkaline Phosphatase Total Protein Albumin Urine Color Urine Appearance Urine pH Ur Specific [place] Urine Protein Urine Glucose (UA) Urine Ketones Urine Blood Urine Nitrite Urine Bilirubin Urine Urobilinogen Ur Leukocyte Esterase Urine WBC (Auto) Urine RBC (Auto) Ur Epithelial Cells Urine Bacteria Hyaline Casts Urine Mucus RPR Titer Nonreactive LABS NOTED. Assessment: 02/15/18 16:06 COMPLETION OF DETOX REGIMEN. Plan: PATIENT SCHEDULED FOR DISCHARGE FROM DETOX TODAY.
--- NOTE | 2018-02-15 16:15 | DS ---
[facility] Detox Discharge Summary Admission Date: 02/12/18 Discharge Date: 02/15/18 - History Present History: Alcohol Dependence, Cannabis Dependence, Cocaine Dependence Additional Comments: PATIENT DENIES CURRENT DETOX SYMPTOMS AND REPORTS THAT HE IS FEELING WELL OVERALL AT TIME OF DISCHARGE FROM DETOX. PATIENT GOING HOME. PATIENT ADVISED TO CONSIDER LOCAL 12-STEP / NA / AA OUTPATIENT SUPPORT GROUP PROGRAMS FOR AFTERCARE. PATIENT ADVISED TO OBTAIN PCP AT [facility] (NEAR WHERE HE LIVES) TO FOLLOW-UP AFTER DISCHARGE FROM DETOX FOR MEDICAL ASSESSMENT AND FOR HISTORY OF CARDIAC/ECG ABNORMALITIES. PATIENT WAS DISCHARGED FROM DETOX UNIT IN STABLE MEDICAL CONDITION. Pertinent Past History: Nicotine Dependence, HTN, Hypercholesterolemia, Chronic Low Pain, Chronic Renal Insufficiency. - Physical Exam Results Vital Signs: Vital Signs Temperature 97.1 F L 02/15/18 09:11 Pulse Rate 102 H 02/15/18 09:11 Respiratory Rate 16 02/15/18 09:11 Blood Pressure 138/96 02/15/18 09:11 O2 Sat by Pulse Oximetry (%) Pertinent Admission Physical Exam Findings: WITHDRAWAL SYMPTOMS. Laboratory Tests 02/12/18 02/13/18 02/13/18 14:30 07:30 07:30 WBC 4.5 RBC 4.46 Hgb 12.5 D Hct 38.2 MCV 85.8 MCH 28.0 MCHC 32.7 RDW 14.2 Plt Count 229 D MPV 9.5 Sodium 143 Potassium 3.8 Chloride 108 H Carbon Dioxide 33 H Anion Gap 2 L BUN 25 H Creatinine 1.6 H Creat Clearance w eGFR 44.31 Random Glucose 94 Calcium 8.2 L Total Bilirubin < 0.1 L D AST 27 D ALT 33 Alkaline Phosphatase 129 H Total Protein 6.8 Albumin 3.1 L Urine Color Yellow Urine Appearance Clear Urine pH 5.0 Ur Specific [place] 1.026 Urine Protein Negative Urine Glucose (UA) Negative Urine Ketones Negative Urine Blood Negative Urine Nitrite Negative Urine Bilirubin Negative Urine Urobilinogen 2.0 Ur Leukocyte Esterase Trace Urine WBC (Auto) 10 Urine RBC (Auto) 1 Ur Epithelial Cells Rare Urine Bacteria Rare Hyaline Casts 18 Urine Mucus Rare RPR Titer 02/13/18 07:30 WBC RBC Hgb Hct MCV MCH MCHC RDW Plt Count MPV Sodium Potassium Chloride Carbon Dioxide Anion Gap BUN Creatinine Creat Clearance w eGFR Random Glucose Calcium Total Bilirubin AST ALT Alkaline Phosphatase Total Protein Albumin Urine Color Urine Appearance Urine pH Ur Specific [place] Urine Protein Urine Glucose (UA) Urine Ketones Urine Blood Urine Nitrite Urine Bilirubin Urine Urobilinogen Ur Leukocyte Esterase Urine WBC (Auto) Urine RBC (Auto) Ur Epithelial Cells Urine Bacteria Hyaline Casts Urine Mucus RPR Titer Nonreactive LABS NOTED. - Treatment Hospital Course: Detox Protocol Followed, Detoxed Safely, Responded well, Discharged Condition Good Patient has Accepted a Rehab Referral to: PT GOING HOME, ADVISED TO CONSIDER LOCAL 12-STEP/NA/AA SUPPORT GROUPS. - Medication Discharge Medications: Ambulatory Orders Amlodipine Besylate [Norvasc -] 10 mg PO DAILY #30 tablet 01/10/18 Hydrochlorothiazide [Hctz -] 25 mg PO DAILY #30 tablet 01/10/18 Lisinopril [Prinivil] 10 mg PO DAILY #30 tablet 01/10/18 - Diagnosis (1) Alcohol dependence with uncomplicated withdrawal Status: Acute (2) Cannabis dependence Status: Chronic (3) Chronic low back pain Status: Chronic Qualifiers: Back pain laterality: midline Sciatica presence: without sciatica Qualified Code(s): M54.5 - Low back pain; G89.29 - Other chronic pain; G89.29 - Other chronic pain (4) Chronic renal insufficiency, stage III (moderate) Status: Chronic (5) Cocaine dependence, uncomplicated Status: Chronic (6) Hypertension Status: Chronic Qualifiers: Hypertension type: essential hypertension Qualified Code(s): I10 - Essential (primary) hypertension (7) Nicotine dependence Status: Chronic Qualifiers: Nicotine product type: cigarettes Substance use status: uncomplicated Qualified Code(s): F17.210 - Nicotine dependence, cigarettes, uncomplicated - AMA Did Patient Leave Against Medical Advice: No
[2018-02-15] MEDS ORDERED: chlordiazePOXIDE HCL 10 MG CAPSULE PO SCH (17:00)
== END 2018-02-15 10:37 | disposition home or self-care (01) | DRG 774 ==
LOC: YASAS 09:58 → Y3N 11:27
PROVIDERS: ADMIT Internal Medicine; ATTEND Internal Medicine
PROC: HZ2ZZZZ Detoxification Services for Substance Abuse Treatment (ICD-10-PCS; principal; 2018-02-12)
DX: F10.230 Alcohol dependence with withdrawal, uncomplicated (principal); F14.20 Cocaine dependence, uncomplicated; F12.20 Cannabis dependence, uncomplicated; F17.210 Nicotine dependence, cigarettes, uncomplicated; E78.00 Pure hypercholesterolemia, unspecified; E78.5 Hyperlipidemia, unspecified; M54.5 Low back pain; G89.29 Other chronic pain; M79.602 Pain in left arm; I12.9 Hypertensive chronic kidney disease with stage 1 through stage 4 chronic kidney disease, or unspecified chronic kidney disease
CPT/HCPCS: 36415; 80053; 81003; 81015; 85027; 86593; 93005; 93010

== ENCOUNTER 2018-03-15 08:59 | Inpatient (IN) | payer OTHER ==
[2018-03-15 09:52] VITALS: BMI 22.1
--- NOTE | 2018-03-15 13:27 | HP ---
CIWA Score - CIWA Score Nausea/Vomitin-Mild Nausea/No Vomiting Muscle Tremors: 4-Moderate,w/Arms Extend Anxiety: 4-Mod. Anxious/Guarded Agitation: 4-Moderately Restless Paroxysmal Sweats: 1-Minimal Palms Moist Orientation: 0-Oriented Tacttile Disturbances: 1-Very Mild Itch/Numbness Auditory Disturbances: 0-None Visual Disturbances: 0-None Headache: 1-Very Mild CIWA-Ar Total Score: 16 Admission ROS BHS - HPI Chief Complaint: withdrawal sx from alcohol denies mental illness refuses psychiatric evaluation Allergies/Adverse Reactions: Allergies Allergy/AdvReac Type Severity Reaction Status Date / Time No Known Allergies Allergy Verified 03/15/18 13:13 History of Present Illness: 63 years old male with long history of alcohol nicotine dependence has hypertension is admitted to detox Exam Limitations: No Limitations - Ebola screening Have you traveled outside of the country in the last 21 days: No (N) Have you had contact with anyone from an Ebola affected area: No Have you been sick,other than usual withdrawal symptoms: No Do you have a fever: No - Review of Systems Constitutional: Loss of Appetite, Changes in sleep, Unintentional Wgt. Loss, Unexplained wgt Loss EENT: reports: No Symptoms Reported Respiratory: reports: No Symptoms reported Cardiac: reports: No Symptoms Reported GI: reports: Nausea, Poor Appetite, Poor Fluid Intake, Abdominal cramping : reports: No Symptoms Reported Musculoskeletal: reports: Back Pain, Joint Pain (knees) Integumentary: reports: No Symptoms Reported Neuro: reports: Tremors Endocrine: reports: No Symptoms Reported Hematology: reports: No Symptoms Reported Psychiatric: reports: Judgement Intact, Mood/Affect Appropiate, Orientated x3 Other Systems: Reviewed and Negative Patient History - Patient Medical History Hx Anemia: No Hx Asthma: No Hx Chronic Obstructive Pulmonary Disease (COPD): No Hx Cancer: No Hx Cardiac Disorders: No Hx Congestive Heart Failure: No Hx Hypertension: Yes Hx Hypercholesterolemia: Yes (In past, not taking any current medications.) Hx Pacemaker: No HX Cerebrovascular Accident: No Hx Seizures: No Hx Dementia: No Hx Diabetes: No Hx Gastrointestinal Disorders: No Hx Liver Disease: No Hx Genitourinary Disorders: No Hx Sexually Transmitted Disorders: No Hx Renal Disease (ESRD): No Hx Thyroid Disease: No Hx Human Immunodeficiency Virus (HIV): No Hx Hepatitis C: No Hx Depression: No Hx Suicide Attempt: No Hx Bipolar Disorder: No Hx Schizophrenia: No - Patient Surgical History Past Surgical History: No Hx Neurologic Surgery: No Hx Cataract Extraction: No Hx Cardiac Surgery: No Hx Lung Surgery: No Hx Breast Surgery: No Hx Breast Biopsy: No Hx Abdominal Surgery: No Hx Appendectomy: No Hx Cholecystectomy: No Hx Genitourinary Surgery: No Hx Orthopedic Surgery: No - PPD History Previous Implant?: Yes Documented Results: Negative w/proof Implanted On Prior [facility] Admission?: Yes Date: 09/08/17 Results: 0MM PPD to be Administered?: No - Smoking Cessation Smoking history: Current every day smoker Have you smoked in the past 12 months: Yes Aproximately how many cigarettes per day: 10 Cigars Per Day: 0 Hx Chewing Tobacco Use: No Initiated information on smoking cessation: Yes 'Breaking Loose' booklet given: 03/15/18 - Substance & Tx. History Hx Alcohol Use: Yes Hx Substance Use: Yes Substance Use Type: Alcohol, Cocaine, Marijuana Hx Substance Use Treatment: Yes (01/2018) - Substances Abused Cocaine Route: Inhalation Frequency: Daily Amount used: $80 Age of first use: 22 Date of Last Use: 03/14/18 Alcohol-vodka/beer Route: Oral Frequency: Daily Amount used: 1 pt./1-6 pk. Age of first use: 22 Date of Last Use: 03/14/18 Family Disease History - Family Disease History Family Disease History: Heart Disease: Mother (CVA; .), Other: Father ( , no contact), Mother, Brother (one - living -healthy), Sister (one - living - healthy), Son (2 - living, healthy), Daughter (1 - living - healthy) Admission Physical Exam S - Vital Signs Vital Signs: Vital Signs - 24 hr 03/15/18 09:49 Temperature 97.5 F L Pulse Rate 61 Respiratory 20 Rate Blood Pressure 155/92 - Physical General Appearance: Yes: Appropriately Dressed, Mild Distress, Thin, Tremorous, Irritable, Sweating, Anxious HEENTM: Yes: Hearing grossly Normal, Normocephalic, Normal Voice Respiratory: Yes: Chest Non-Tender, Lungs Clear, Normal Breath Sounds, No Respiratory Distress, No Accessory Muscle Use Neck: Yes: Supple, Trachea in good position Breast: Yes: Breasts Symetrical, No Discharge Cardiology: Yes: Regular Rhythm, Regular Rate, S1, S2 Abdominal: Yes: Non Tender, Flat, Increased Bowel Sounds Genitourinary: Yes: Within Normal Limits Back: Yes: Normal Inspection Musculoskeletal: Yes: full range of Motion, Gait Steady, Back pain Extremities: Yes: Normal Inspection, Normal Range of Motion, Non-Tender, Tremors Neurological: Yes: Fully Oriented, Alert, Motor Strength 5/5, Normal Mood/Affect , Normal Response Integumentary: Yes: Warm Lymphatic: Yes: Within Normal Limits - Diagnostic (1) Alcohol dependence with uncomplicated withdrawal Current Visit: Yes Status: Acute (2) Hypertension Current Visit: Yes Status: Chronic Qualifiers: Hypertension type: essential hypertension Qualified Code(s): I10 - Essential (primary) hypertension (3) Nicotine dependence Current Visit: Yes Status: Acute Qualifiers: Nicotine product type: cigarettes Substance use status: in withdrawal Qualified Code(s): F17.213 - Nicotine dependence, cigarettes, with withdrawal Cleared for Admission [facility] - Detox or Rehab [facility] Level of Care: Medically Managed Detox Regimen/Protocol: Librium [facility] Breath Alcohol Content Breath Alcohol Content: 0 Urine Drug Screen - Control Is Test Valid: Yes - Results Drug Screen Negative: No Urine Drug Screen Results: THC-Marijuana, NIDA-Cocaine, BZO-Benzodiazepines
[2018-03-15] MEDS ORDERED: MAGNESIUM HYDROX 2400MG/30ML ORAL SUSPENSION 30 ML CUP PO PRN (13:29)
[2018-03-15] MEDS ORDERED: LOPERAMIDE HCL 2 MG CAPSULE PO PRN (13:29)
[2018-03-15] MEDS ORDERED: MAGNESIUM CITRATE 300 ML BOTTLE PO PRN (13:29)
[2018-03-15] MEDS ORDERED: chlordiazePOXIDE HCL 25 MG CAPSULE PO PRN (13:29)
[2018-03-15] MEDS ORDERED: MAG HYDROX/AL HYDROX/SIMETH 30 ML UNIT-DOSE CUP PO PRN (13:29)
[2018-03-15] MEDS ORDERED: P-EPHED 60MG/TRIPROLIDI 2.5MG TABLET PO PRN (13:29)
[2018-03-15] MEDS ORDERED: IBUPROFEN 400 MG TABLET (FP) PO PRN (13:29)
[2018-03-15] MEDS ORDERED: MENTHOL/PHENOL 1 EACH UD MM PRN (13:29)
[2018-03-15] MEDS ORDERED: ACETAMINOPHEN 325 MG TABLET (FP) PO PRN (13:29)
[2018-03-15] MEDS ORDERED: guaiFENesin/D-METHORPHAN HB 10 ML UNIT-DOSE CUPS PO PRN (13:29)
[2018-03-15] MEDS ORDERED: NICOTINE POLACRILEX 2 MG GUM BC PRN (13:29)
[2018-03-15] MEDS: LISINOPRIL 10 MG TABLET (FP) PO SCH (15:16)
[2018-03-15] MEDS: HYDROCHLOROTHIAZIDE 25 MG TABLET (FP) PO SCH (15:16)
[2018-03-15] MEDS: amLODIPine BESYLATE 10 MG TABLET (FP) PO SCH (15:16)
[2018-03-15] MEDS: NICOTINE 14 MG/24 HOURS TOPICAL PATCH TD SCH (15:17)
[2018-03-15] MEDS ORDERED: MELATONIN 5 MG TABLETS PO PRN (22:00)
[2018-03-15] MEDS: chlordiazePOXIDE HCL 25 MG CAPSULE PO SCH (22:14)
[2018-03-15] MEDS: THIAMINE HCL 100 MG TABLET (FP) PO SCH (22:15)
[2018-03-15 23:14] LABS: URINE APPEARANCE TURBID; URINE BILIRUBIN NEGATIVE (<2.0 mg/dL); URINE COLOR YELLOW; URINE GLUCOSE (UA) NEGATIVE (NEGATIVE); URINE KETONE NEGATIVE (NEGATIVE); URINE NITRITE NEGATIVE (NEGATIVE); URINE UROBILINOGEN 4.0 E.U/dl mg/dL (0.2-1.0)
[2018-03-15 23:23] LABS: URINE LEUK ESTERASE 1+ (NEGATIVE); URINE PROTEIN 1+ (NEGATIVE)
[2018-03-15 23:30] LABS: EPI CELLS RARE /HPF (FEW); URINE MUCUS RARE
[2018-03-16] MEDS: chlordiazePOXIDE HCL 25 MG CAPSULE PO SCH ×5 (05:45→22:24)
[2018-03-16] MEDS: HYDROCHLOROTHIAZIDE 25 MG TABLET (FP) PO SCH (10:14)
[2018-03-16] MEDS: amLODIPine BESYLATE 10 MG TABLET (FP) PO SCH (10:14)
[2018-03-16] MEDS: LISINOPRIL 10 MG TABLET (FP) PO SCH (10:14)
[2018-03-16] MEDS: PRENATAL VITAMINS W/ FOLIC ACID TABLET (FP) PO SCH (10:14)
[2018-03-16] MEDS: NICOTINE 14 MG/24 HOURS TOPICAL PATCH TD SCH (10:14)
[2018-03-16 10:19] LABS: CHLORIDE 104 mmol/L (98-107); POTASSIUM 3.9 mmol/L (3.5-5.1); SODIUM 142 mmol/L (136-145)
[2018-03-16 10:21] LABS: HEMATOCRIT 37.2 % (35.4-49); HEMOGLOBIN 12.2 GM/dL (11.7-16.9); MCH 28.2 pg (25.7-33.7); MCHC 32.7 g/dl (32.0-35.9); MEAN CELL VOLUME 86.1 fl (80-96); MEAN PLT VOLUME 10.2 fl (7.5-11.1); PLATELET COUNT 198 K/MM3 (134-434); RBC 4.32 M/mm3 (4.00-5.60); RDW 14.4 % (11.9-15.9)
[2018-03-16 10:34] LABS: ALBUMIN 3.5 g/dl (3.4-5.0); ALK PHOS 86 U/L (45-117); ANION GAP 6 (8-16); BILIRUBIN,TOTAL 0.6 mg/dL (0.2-1.0); BLOOD UREA NITROGEN 22 mg/dL (7-18); CALCIUM 8.8 mg/dL (8.5-10.1); CO2 32 mmol/L (21-32); CREATININE 1.9 mg/dL (0.7-1.3); GLUCOSE,RANDOM 80 mg/dL (74-106); SGOT/AST 43 U/L (15-37); SGPT/ALT 44 U/L (12-78); TOT PROT 7.4 g/dl (6.4-8.2)
--- NOTE | 2018-03-16 10:52 | PN ---
S CIWA - CIWA Score Nausea/Vomitin-Mild Nausea/No Vomiting Muscle Tremors: 4-Moderate,w/Arms Extend Anxiety: 3 Agitation: 3 Paroxysmal Sweats: 1-Minimal Palms Moist Orientation: 0-Oriented Tacttile Disturbances: 0-None Auditory Disturbances: 0-None Visual Disturbances: 0-None Headache: 0-None Present CIWA-Ar Total Score: 12 BHS Progress Note (SOAP) Subjective: patient refuses librium 10 am dose reported feeling ok today stated sweating and tremor able to sleep at night Objective: 03/16/18 10:53 Vital Signs Temperature 97.9 F 03/16/18 10:17 Pulse Rate 64 03/16/18 10:17 Respiratory Rate 16 03/16/18 10:17 Blood Pressure 142/86 03/16/18 10:17 O2 Sat by Pulse Oximetry (%) Laboratory Last Values WBC 3.0 K/mm3 (4.0-10.0) L D 03/16/18 06:00 RBC 4.32 M/mm3 (4.00-5.60) 03/16/18 06:00 Hgb 12.2 GM/dL (11.7-16.9) 03/16/18 06:00 Hct 37.2 % (35.4-49) 03/16/18 06:00 MCV 86.1 fl (80-96) 03/16/18 06:00 MCH 28.2 pg (25.7-33.7) 03/16/18 06:00 MCHC 32.7 g/dl (32.0-35.9) 03/16/18 06:00 RDW 14.4 % (11.9-15.9) 03/16/18 06:00 Plt Count 198 K/MM3 (134-434) 03/16/18 06:00 MPV 10.2 fl (7.5-11.1) 03/16/18 06:00 Sodium 142 mmol/L (136-145) 03/16/18 06:00 Potassium 3.9 mmol/L (3.5-5.1) 03/16/18 06:00 Chloride 104 mmol/L (98-107) 03/16/18 06:00 Carbon Dioxide 32 mmol/L (21-32) 03/16/18 06:00 Anion Gap 6 (8-16) L 03/16/18 06:00 BUN 22 mg/dL (7-18) H 03/16/18 06:00 Creatinine 1.9 mg/dL (0.7-1.3) H 03/16/18 06:00 Creat Clearance w eGFR 36.22 (>60) 03/16/18 06:00 Random Glucose 80 mg/dL (74-106) 03/16/18 06:00 Calcium 8.8 mg/dL (8.5-10.1) 03/16/18 06:00 Total Bilirubin 0.6 mg/dL (0.2-1.0) D 03/16/18 06:00 AST 43 U/L (15-37) H D 03/16/18 06:00 ALT 44 U/L (12-78) D 03/16/18 06:00 Alkaline Phosphatase 86 U/L (45-117) D 03/16/18 06:00 Total Protein 7.4 g/dl (6.4-8.2) 03/16/18 06:00 Albumin 3.5 g/dl (3.4-5.0) 03/16/18 06:00 Urine Color Yellow 03/15/18 23:03 Urine Appearance Turbid 03/15/18 23:03 Urine pH 5.0 (5.0-8.0) 03/15/18 23:03 Ur Specific [place] 1.028 (1.001-1.035) 03/15/18 23:03 Urine Protein 1+ (NEGATIVE) H 03/15/18 23:03 Urine Glucose (UA) Negative (NEGATIVE) 03/15/18 23: Urine Ketones Negative (NEGATIVE) 03/15/18 23: Urine Blood Negative (NEGATIVE) 03/15/18 23:03 Urine Nitrite Negative (NEGATIVE) 03/15/18 23:03 Urine Bilirubin Negative (<2.0 mg/dL) 03/15/18 23:03 Urine Urobilinogen 4.0 e.u/dl mg/dL (0.2-1.0) 03/15/18 23:03 Ur Leukocyte Esterase 1+ (NEGATIVE) H 03/15/18 23:03 Urine WBC (Auto) 6 /hpf (3-5) 03/15/18 23:03 Urine RBC (Auto) None /hpf (0-3) 03/15/18 23:03 Ur Epithelial Cells Rare /HPF (FEW) 03/15/18 23:03 Urine Mucus Rare 03/15/18 23:03 lab noted creatinin 1.9 gfr 36 repeat camp increase oral fluid Assessment: 03/16/18 10:59 withdrawal sx dietary consultation for renal insufficient 03/16/18 11:02 fluid volium deficient Plan: continue detox dietary consultation repeat camp discontinue librium 50 mg replaced by libtium 25 mg q6h x 2 dosages increase oral fluid
[2018-03-16] MEDS: THIAMINE HCL 100 MG TABLET (FP) PO SCH (22:25)
[2018-03-16] MEDS: MINERAL OIL/PETROLAT/WATER TOPICAL CREAM 113 GM JAR TP SCH (22:43)
[2018-03-17] MEDS: chlordiazePOXIDE HCL 25 MG CAPSULE PO SCH ×3 (05:36→17:45)
--- NOTE | 2018-03-17 09:40 | PN ---
[facility] CIWA - CIWA Score Nausea/Vomitin-Mild Nausea/No Vomiting Muscle Tremors: 3 Anxiety: 3 Agitation: 3 Paroxysmal Sweats: 1-Minimal Palms Moist Orientation: 0-Oriented Tacttile Disturbances: 0-None Auditory Disturbances: 0-None Visual Disturbances: 0-None Headache: 0-None Present CIWA-Ar Total Score: 11 S Progress Note (SOAP) Subjective: sweat tremor anxiety restlessness gi distress Objective: 03/17/18 09:43 Vital Signs Temperature 97.7 F 03/17/18 06:39 Pulse Rate 65 03/17/18 06:39 Respiratory Rate 18 03/17/18 06:39 Blood Pressure 144/85 03/17/18 06:39 O2 Sat by Pulse Oximetry (%) Laboratory Last Values WBC 3.0 K/mm3 (4.0-10.0) L D 03/16/18 06:00 RBC 4.32 M/mm3 (4.00-5.60) 03/16/18 06:00 Hgb 12.2 GM/dL (11.7-16.9) 03/16/18 06:00 Hct 37.2 % (35.4-49) 03/16/18 06:00 MCV 86.1 fl (80-96) 03/16/18 06:00 MCH 28.2 pg (25.7-33.7) 03/16/18 06:00 MCHC 32.7 g/dl (32.0-35.9) 03/16/18 06:00 RDW 14.4 % (11.9-15.9) 03/16/18 06:00 Plt Count 198 K/MM3 (134-434) 03/16/18 06:00 MPV 10.2 fl (7.5-11.1) 03/16/18 06:00 Sodium 142 mmol/L (136-145) 03/16/18 06:00 Potassium 3.9 mmol/L (3.5-5.1) 03/16/18 06:00 Chloride 104 mmol/L (98-107) 03/16/18 06:00 Carbon Dioxide 32 mmol/L (21-32) 03/16/18 06:00 Anion Gap 6 (8-16) L 03/16/18 06:00 BUN 22 mg/dL (7-18) H 03/16/18 06:00 Creatinine 1.9 mg/dL (0.7-1.3) H 03/16/18 06:00 Creat Clearance w eGFR 36.22 (>60) 03/16/18 06:00 Random Glucose 80 mg/dL (74-106) 03/16/18 06:00 Calcium 8.8 mg/dL (8.5-10.1) 03/16/18 06:00 Total Bilirubin 0.6 mg/dL (0.2-1.0) D 03/16/18 06:00 AST 43 U/L (15-37) H D 03/16/18 06:00 ALT 44 U/L (12-78) D 03/16/18 06:00 Alkaline Phosphatase 86 U/L (45-117) D 03/16/18 06:00 Total Protein 7.4 g/dl (6.4-8.2) 03/16/18 06:00 Albumin 3.5 g/dl (3.4-5.0) 03/16/18 06:00 Urine Color Yellow 03/15/18 23:03 Urine Appearance Turbid 03/15/18 23:03 Urine pH 5.0 (5.0-8.0) 03/15/18 23:03 Ur Specific [place] 1.028 (1.001-1.035) 03/15/18 23:03 Urine Protein 1+ (NEGATIVE) H 03/15/18 23:03 Urine Glucose (UA) Negative (NEGATIVE) 03/15/18 23:03 Urine Ketones Negative (NEGATIVE) 03/15/18 23:03 Urine Blood Negative (NEGATIVE) 03/15/18 23: Urine Nitrite Negative (NEGATIVE) 03/15/18 23:03 Urine Bilirubin Negative (<2.0 mg/dL) 03/15/18 23:03 Urine Urobilinogen 4.0 e.u/dl mg/dL (0.2-1.0) 03/15/18 23:03 Ur Leukocyte Esterase 1+ (NEGATIVE) H 03/15/18 23:03 Urine WBC (Auto) 6 /hpf (3-5) 03/15/18 23:03 Urine RBC (Auto) None /hpf (0-3) 03/15/18 23:03 Ur Epithelial Cells Rare /HPF (FEW) 03/15/18 23:03 Urine Mucus Rare 03/15/18 23:03 RPR Titer Nonreactive (NONREACTIVE) 03/16/18 06:00 lab noted 03/17/18 09:45 chemistry repeat results pending fgr gfr Assessment: 03/17/18 09:47 withdrawal sx 03/17/18 09:48 rule out renal insufficient Plan: continue detox lab pending
[2018-03-17] MEDS: NICOTINE 14 MG/24 HOURS TOPICAL PATCH TD SCH (11:39)
[2018-03-17] MEDS: LISINOPRIL 10 MG TABLET (FP) PO SCH (11:39)
[2018-03-17] MEDS: HYDROCHLOROTHIAZIDE 25 MG TABLET (FP) PO SCH (11:39)
[2018-03-17] MEDS: amLODIPine BESYLATE 10 MG TABLET (FP) PO SCH (11:39)
[2018-03-17] MEDS: PRENATAL VITAMINS W/ FOLIC ACID TABLET (FP) PO SCH (11:39)
[2018-03-17 12:09] LABS: CHLORIDE 105 mmol/L (98-107); POTASSIUM 3.9 mmol/L (3.5-5.1); SODIUM 141 mmol/L (136-145)
[2018-03-17 12:26] LABS: ALBUMIN 2.9 g/dl (3.4-5.0); ALK PHOS 115 U/L (45-117); ANION GAP 7 (8-16); BILIRUBIN,TOTAL 0.3 mg/dL (0.2-1.0); BLOOD UREA NITROGEN 26 mg/dL (7-18); CALCIUM 8.8 mg/dL (8.5-10.1); CO2 29 mmol/L (21-32); CREATININE 1.5 mg/dL (0.7-1.3); GLUCOSE,RANDOM 87 mg/dL (74-106); SGOT/AST 21 U/L (15-37); SGPT/ALT 32 U/L (12-78); TOT PROT 6.2 g/dl (6.4-8.2)
--- NOTE | 2018-03-17 17:16 | PN ---
[facility] Progress Note Note: Vital Signs - 24 hr 03/16/18 03/16/18 03/17/18 18:50 22:56 00:30 Temperature 97.5 F L 97.7 F Pulse Rate 85 81 Respiratory 18 18 18 Rate Blood Pressure 136/81 155/98 03/17/18 03/17/18 03/17/18 03:30 06:39 10:17 Temperature 97.7 F Pulse Rate 65 91 H Respiratory 18 18 18 Rate Blood Pressure 144/85 142/107 03/17/18 03/17/18 14:54 17:04 Temperature 98.1 F 98.2 F Pulse Rate 77 96 H Respiratory 18 20 Rate Blood Pressure 147/94 145/106 Patient with asymptomatic elevated BP predominantly diastolic one time dose clonidine 0.1 mg stat increase fluids continue to monitor
[2018-03-17] MEDS ORDERED: cloNIDine HCL 0.1 MG TABLET PO ONE (17:30)
[2018-03-17] MEDS: THIAMINE HCL 100 MG TABLET (FP) PO SCH (22:30)
[2018-03-17] MEDS: chlordiazePOXIDE 5 MG CAPSULE PO SCH (22:30)
[2018-03-17] MEDS: MINERAL OIL/PETROLAT/WATER TOPICAL CREAM 113 GM JAR TP SCH (23:55)
[2018-03-18] MEDS: chlordiazePOXIDE 5 MG CAPSULE PO SCH ×3 (06:38→17:47)
--- NOTE | 2018-03-18 07:07 | EKG ---
Test Reason : Blood Pressure : / mmHG Vent. Rate : 055 BPM Atrial Rate : 055 BPM P-R Int : 148 ms QRS Dur : 110 ms QT Int : 520 ms P-R-T Axes : -05 091 117 degrees QTc Int : 497 ms SINUS BRADYCARDIA RIGHTWARD AXIS VOLTAGE CRITERIA FOR LEFT VENTRICULAR HYPERTROPHY CANNOT RULE OUT SEPTAL INFARCT (CITED ON OR BEFORE 06-SEP-2017) ABNORMAL ECG WHEN COMPARED WITH ECG OF 12-FEB-2018 12:37, VENT. RATE HAS DECREASED BY 27 BPM QUESTIONABLE CHANGE IN QRS DURATION QUESTIONABLE CHANGE IN INITIAL FORCES OF SEPTAL LEADS Confirmed by MARIANNE ANDINO MD ([id number]) on 03/16/2018 12:04:17 PM Referred By: Confirmed By:MARIANNE ANDINO MD
[2018-03-18] MEDS: amLODIPine BESYLATE 10 MG TABLET (FP) PO SCH (10:33)
[2018-03-18] MEDS: LISINOPRIL 10 MG TABLET (FP) PO SCH (10:33)
[2018-03-18] MEDS: PRENATAL VITAMINS W/ FOLIC ACID TABLET (FP) PO SCH (10:33)
[2018-03-18] MEDS: HYDROCHLOROTHIAZIDE 25 MG TABLET (FP) PO SCH (10:34)
[2018-03-18] MEDS: NICOTINE 14 MG/24 HOURS TOPICAL PATCH TD SCH (10:34)
--- NOTE | 2018-03-18 12:23 | PN ---
[facility] Progress Note (SOAP) Subjective: feeling better no sweat less tremor slept through the night Objective: 03/18/18 12:18 Vital Signs Temperature 98.2 F 03/18/18 09:50 Pulse Rate 91 H 03/18/18 09:50 Respiratory Rate 20 03/18/18 09:50 Blood Pressure 140/91 03/18/18 09:50 O2 Sat by Pulse Oximetry (%) Laboratory Last Values WBC 3.0 K/mm3 (4.0-10.0) L D 03/16/18 06:00 RBC 4.32 M/mm3 (4.00-5.60) 03/16/18 06:00 Hgb 12.2 GM/dL (11.7-16.9) 03/16/18 06:00 Hct 37.2 % (35.4-49) 03/16/18 06:00 MCV 86.1 fl (80-96) 03/16/18 06:00 MCH 28.2 pg (25.7-33.7) 03/16/18 06:00 MCHC 32.7 g/dl (32.0-35.9) 03/16/18 06:00 RDW 14.4 % (11.9-15.9) 03/16/18 06:00 Plt Count 198 K/MM3 (134-434) 03/16/18 06:00 MPV 10.2 fl (7.5-11.1) 03/16/18 06:00 Sodium 141 mmol/L (136-145) 03/17/18 07:00 Potassium 3.9 mmol/L (3.5-5.1) 03/17/18 07:00 Chloride 105 mmol/L (98-107) 03/17/18 07:00 Carbon Dioxide 29 mmol/L (21-32) 03/17/18 07:00 Anion Gap 7 (8-16) L 03/17/18 07:00 BUN 26 mg/dL (7-18) H 03/17/18 07:00 Creatinine 1.5 mg/dL (0.7-1.3) H D 03/17/18 07:00 Creat Clearance w eGFR 47.58 (>60) 03/17/18 07:00 Random Glucose 87 mg/dL (74-106) 03/17/18 07:00 Calcium 8.8 mg/dL (8.5-10.1) 03/17/18 07:00 Total Bilirubin 0.3 mg/dL (0.2-1.0) D 03/17/18 07:00 AST 21 U/L (15-37) D 03/17/18 07:00 ALT 32 U/L (12-78) D 03/17/18 07:00 Alkaline Phosphatase 115 U/L (45-117) D 03/17/18 07:00 Total Protein 6.2 g/dl (6.4-8.2) L 03/17/18 07:00 Albumin 2.9 g/dl (3.4-5.0) L 03/17/18 07:00 Urine Color Yellow 03/15/18 23:03 Urine Appearance Turbid 03/15/18 23:03 Urine pH 5.0 (5.0-8.0) 03/15/18 23:03 Ur Specific [place] 1.028 (1.001-1.035) 03/15/18 23:03 Urine Protein 1+ (NEGATIVE) H 03/15/18 23:03 Urine Glucose (UA) Negative (NEGATIVE) 03/15/18 23:03 Urine Ketones Negative (NEGATIVE) 03/15/18 23:03 Urine Blood Negative (NEGATIVE) 03/15/18 23:03 Urine Nitrite Negative (NEGATIVE) 03/15/18 23:03 Urine Bilirubin Negative (<2.0 mg/dL) 03/15/18 23:03 Urine Urobilinogen 4.0 e.u/dl mg/dL (0.2-1.0) 03/15/18 23:03 Ur Leukocyte Esterase 1+ (NEGATIVE) H 03/15/18 23:03 Urine WBC (Auto) 6 /hpf (3-5) 03/15/18 23:03 Urine RBC (Auto) None /hpf (0-3) 03/15/18 23:03 Ur Epithelial Cells Rare /HPF (FEW) 03/15/18 23:03 Urine Mucus Rare 03/15/18 23:03 RPR Titer Nonreactive (NONREACTIVE) 03/16/18 06:00 lab noted rule out renal insufficient Assessment: 03/18/18 12:21 mild withdrawal sx renal function deficit Plan: medically supervised detox encourage the patient follow up with primary care hypertension provider for renal function testing nephrology consultation
[2018-03-18] MEDS ORDERED: LISINOPRIL 10 MG TABLET (FP) PO SCH (22:00)
[2018-03-18] MEDS: THIAMINE HCL 100 MG TABLET (FP) PO SCH (22:06)
[2018-03-18] MEDS: chlordiazePOXIDE HCL 10 MG CAPSULE PO SCH (22:06)
[2018-03-18] MEDS: MINERAL OIL/PETROLAT/WATER TOPICAL CREAM 113 GM JAR TP SCH (23:18)
[2018-03-19] MEDS: chlordiazePOXIDE HCL 10 MG CAPSULE PO SCH (06:59)
[2018-03-19 09:01] VITALS: BP 138/90; PULSE 71; TEMP 96.3
[2018-03-19] MEDS ORDERED: CARVEDILOL 3.125 MG TABLET (FP) PO SCH (10:00)
[2018-03-19] MEDS ORDERED: ISOSORBIDE MONONITRATE 30 MG TAB.SR.24H (FP) PO SCH (10:00)
[2018-03-19] MEDS ORDERED: SPIRONOLACTONE 25 MG TABLET (FP) PO SCH (10:00)
--- NOTE | 2018-03-19 16:47 | PN ---
[facility] Progress Note (SOAP) Subjective: no complaints offered Objective: 03/19/18 16:46 A & O x 3 Vital Signs Temperature 96.3 F L 03/19/18 09:00 Pulse Rate 71 03/19/18 09:00 Respiratory Rate 18 03/19/18 09:00 Blood Pressure 138/90 03/19/18 09:00 O2 Sat by Pulse Oximetry (%) Assessment: 03/19/18 16:46 detox completed pt tolerated well Plan: for discharge
--- NOTE | 2018-03-19 16:50 | DS ---
[facility] Detox Discharge Summary Admission Date: 03/15/18 Discharge Date: 03/19/18 - History Additional Comments: For d/c home A & O x 3, gait steady, Not in distress Will do aftercare by "going to meetings" Prescriptions sent to [facility] pharmacy, [address] - Physical Exam Results Vital Signs: Vital Signs Temperature 96.3 F L 03/19/18 09:00 Pulse Rate 71 03/19/18 09:00 Respiratory Rate 18 03/19/18 09:00 Blood Pressure 138/90 03/19/18 09:00 O2 Sat by Pulse Oximetry (%) - Treatment Hospital Course: Detox Protocol Followed, Detoxed Safely, Responded well, Discharged Condition Good Patient has Accepted a Rehab Referral to: O/P AA meeting - Medication Discharge Medications: Ambulatory Orders Amlodipine Besylate [Norvasc -] 10 mg PO DAILY #30 tablet 03/18/18 Hydrochlorothiazide [Hctz -] 25 mg PO DAILY #30 tablet 03/18/18 Lisinopril [Prinivil] 10 mg PO DAILY #30 tablet 03/18/18 Carvedilol [Coreg -] 3.125 mg PO DAILY 30 Days #30 tablet 03/19/18 Isosorbide Mononitrate [Isosorbide Mononitrate ER] 30 mg PO DAILY 30 Days #30 tab.er.24h 03/19/18 Spironolactone 12.5 mg PO DAILY 30 Days #30 tablet 03/19/18 - Diagnosis (1) Alcohol dependence with uncomplicated withdrawal Status: Acute (2) Hyperlipidemia Status: Acute (3) Nicotine dependence Status: Acute Qualifiers: Nicotine product type: cigarettes Substance use status: in withdrawal Qualified Code(s): F17.213 - Nicotine dependence, cigarettes, with withdrawal (4) Cannabis dependence Status: Chronic (5) Cocaine dependence, uncomplicated Status: Chronic (6) Hypertension Status: Chronic Qualifiers: Hypertension type: essential hypertension Qualified Code(s): I10 - Essential (primary) hypertension - AMA Did Patient Leave Against Medical Advice: No
--- NOTE | 2018-03-23 11:14 | EKG ---
Test Reason : Blood Pressure : / mmHG Vent. Rate : 064 BPM Atrial Rate : 064 BPM P-R Int : 166 ms QRS Dur : 096 ms QT Int : 454 ms P-R-T Axes : 059 -27 -72 degrees QTc Int : 468 ms NORMAL SINUS RHYTHM POSSIBLE LEFT ATRIAL ENLARGEMENT LEFT VENTRICULAR HYPERTROPHY CANNOT RULE OUT SEPTAL INFARCT (CITED ON OR BEFORE 06-SEP-2017) LATERAL INJURY PATTERN ACUTE UT / STEMI ABNORMAL ECG WHEN COMPARED WITH ECG OF 15-MAR-2018 15:28, QRS AXIS SHIFTED LEFT QUESTIONABLE CHANGE IN INITIAL FORCES OF SEPTAL LEADS T WAVE INVERSION NOW EVIDENT IN INFERIOR LEADS T WAVE INVERSION LESS EVIDENT IN LATERAL LEADS Confirmed by THU NARANJO, MARIANNE ([id number]) on 03/23/2018 11:13:40 AM Referred By: Confirmed By:MARIANNE ANDINO MD
== END 2018-03-19 09:40 | disposition home or self-care (01) | DRG 774 ==
LOC: YASAS 08:59 → Y6N 14:00
PROVIDERS: ADMIT Surgery; ATTEND Surgery
PROC: HZ2ZZZZ Detoxification Services for Substance Abuse Treatment (ICD-10-PCS; principal; 2018-03-15)
DX: F10.230 Alcohol dependence with withdrawal, uncomplicated (principal); F14.20 Cocaine dependence, uncomplicated; F12.20 Cannabis dependence, uncomplicated; F17.210 Nicotine dependence, cigarettes, uncomplicated; E78.5 Hyperlipidemia, unspecified; I10 Essential (primary) hypertension
CPT/HCPCS: 36415; 80053; 81003; 81015; 85027; 86593; 93005; 93010; J0735

== ENCOUNTER 2019-09-24 12:02 | Inpatient (IN) | payer OTHER ==
[2019-09-24 12:57] VITALS: BMI 23.7
--- NOTE | 2019-09-24 13:52 | HP ---
CIWA Score Nausea/Vomitin Muscle Tremors: 3 Anxiety: 2 Agitation: 2 Paroxysmal Sweats: 1-Minimal Palms Moist Orientation: 0-Oriented Tacttile Disturbances: 1-Very Mild Itch/Numbness Auditory Disturbances: 0-None Visual Disturbances: 0-None Headache: 2-Mild CIWA-Ar Total Score: 13 - Admission Criteria OASAS Guidelines: Admission for Medically Managed Detox: Requires at least one of the followin. CIWA greater than 12 2. Seizures within the past 24 hours 3. Delirium tremens within the past 24 hours 4. Hallucinations within the past 24 hours 5. Acute intervention needed for co occurring medical disorder 6. Acute intervention needed for co occurring psychiatric disorder 7. Severe withdrawal that cannot be handled at a lower level of care (continued vomiting, continued diarrhea, abnormal vital signs) requiring intravenous medication and/or fluids 8. Admitting History and Physical - Admission Chief Complaint: i need help to stop dring alcohol,cocaine and marijuana History Source: Patient Limitations to Obtaining History: No Limitations - Past Medical History Cardiovascular: Yes: HTN - Past Surgical History Additional Past Surgical History: left hip replacement in 2018 - Smoking History Smoking history: Current every day smoker Have you smoked in the past 12 months: Yes Aproximately how many cigarettes per day: 10 - Alcohol/Substance Use Hx Alcohol Use: Yes - Social History Usual Living Arrangement: Yes: Alone, Other (homeless) History of Recent Travel: No Other Social History: homeless,unemployed Admission ROS S - HPI Chief Complaint: i need help to stop drinking alcohol,cocaine,marijuana Allergies/Adverse Reactions: Allergies Allergy/AdvReac Type Severity Reaction Status Date / Time No Known Allergies Allergy Verified 09/24/19 12:49 History of Present Illness: this 64 years old male with alcohol ,cocaine and marijuana dependence,seeking detox,withdrawal symptom, last detox 08/19 did not recall the facility hypertension on med denied seizure denied syncope multiple admissions in detox nicotine dependence 1o cigarette longest period of sobriety 4 years - Ebola screening Have you traveled outside of the country in the last 21 days: No (N) Have you had contact with anyone from an Ebola affected area: No Do you have a fever: No - Review of Systems Constitutional: Night Sweats, Weakness, Unintentional Wgt. Loss EENT: reports: Nose Congestion Respiratory: reports: No Symptoms reported Cardiac: reports: No Symptoms Reported GI: reports: Nausea, Poor Appetite, Indigestion : reports: No Symptoms Reported Musculoskeletal: reports: Back Pain, Muscle Pain, Other (s/p left hip replacement) Integumentary: reports: Dryness Neuro: reports: Headache, Tremors Endocrine: reports: No Symptoms Reported Hematology: reports: No Symptoms Reported Psychiatric: reports: No Sypmtoms Reported, Judgement Intact, Mood/Affect Appropiate, Orientated x3 Other Systems: Reviewed and Negative Patient History - Patient Medical History Hx Anemia: No Hx Asthma: No Hx Chronic Obstructive Pulmonary Disease (COPD): No Hx Cancer: No Hx Cardiac Disorders: No Hx Congestive Heart Failure: No Hx Hypertension: Yes (ON MEDICATION) Hx Hypercholesterolemia: Yes (on lipitor) Hx Pacemaker: No HX Cerebrovascular Accident: No Hx Seizures: No Hx Dementia: No Hx Diabetes: No Hx Gastrointestinal Disorders: No Hx Liver Disease: No Hx Genitourinary Disorders: No Hx Sexually Transmitted Disorders: No Hx Renal Disease (ESRD): No Hx Thyroid Disease: No Hx Human Immunodeficiency Virus (HIV): No (last 04/19 negative) Hx Hepatitis C: No Hx Depression: No Hx Suicide Attempt: No Hx Bipolar Disorder: No Hx Schizophrenia: No Other Medical History: no suiicdal,no homicidal - Patient Surgical History Past Surgical History: No Hx Neurologic Surgery: No Hx Cataract Extraction: No Hx Cardiac Surgery: No Hx Lung Surgery: No Hx Breast Surgery: No Hx Breast Biopsy: No Hx Abdominal Surgery: No Hx Appendectomy: No Hx Cholecystectomy: No Hx Genitourinary Surgery: No Hx Section: No Hx Orthopedic Surgery: No Anesthesia Reaction: No - PPD History Previous Implant?: Yes Documented Results: Negative w/o proof Date: 09/08/17 Results: NEGATIVE PPD to be Administered?: Yes - Smoking Cessation Smoking history: Current every day smoker Have you smoked in the past 12 months: Yes Aproximately how many cigarettes per day: 10 Cigars Per Day: 0 Hx Chewing Tobacco Use: No Initiated information on smoking cessation: Yes 'Breaking Loose' booklet given: 09/24/19 - Substance & Tx. History Hx Alcohol Use: Yes Hx Substance Use: Yes Substance Use Type: Alcohol, Cocaine, Marijuana Hx Substance Use Treatment: Yes (08/19 unknown facility) - Substances abused Alcohol Substance route: Oral Frequency: Daily Amount used: 2 PINTS OF VODKA Age of first use: 19 Date of last use: 09/23/19 Cocaine Substance route: Inhalation Frequency: Daily Amount used: 1-2 GRAMS Age of first use: 22 Date of last use: 09/23/19 Marijuana/Hashish Substance route: Smoking Frequency: Daily Amount used: 1 GRAM Age of first use: 16 Date of last use: 09/23/19 Admission Physical Exam S - Vital Signs Vital Signs: Vital Signs - 24 hr 09/24/19 12:51 Temperature 97.0 F L Pulse Rate 79 Respiratory 20 Rate Blood Pressure 164/104 H - Physical General Appearance: Yes: Moderate Distress, Tremorous, Irritable, Sweating, Anxious HEENTM: Yes: Normal ENT Inspection, NIRMALA, Pharynx Normal Respiratory: Yes: Lungs Clear, Normal Breath Sounds, No Respiratory Distress Neck: Yes: Within Normal Limits, Supple, Trachea in good position Breast: Yes: Within Normal Limits Cardiology: Yes: Within Normal Limits, Regular Rhythm, Regular Rate, S1, S2 Abdominal: Yes: Within Normal Limits, Normal Bowel Sounds, Non Tender, Flat Genitourinary: Yes: Within Normal Limits Back: Yes: Muscle Spasm Musculoskeletal: Yes: Back pain, Muscle Pain Extremities: Yes: Tremors 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 NML intact, Alert, Motor Strength 5/5 Integumentary: Yes: Dry Lymphatic: Yes: Within Normal Limits - Diagnostic (1) Alcohol dependence with uncomplicated withdrawal Current Visit: No Status: Acute (2) Cannabis dependence Current Visit: No Status: Acute (3) Cocaine dependence, uncomplicated Current Visit: No Status: Acute (4) Nicotine dependence Current Visit: No Status: Acute Qualifiers: Nicotine product type: cigarettes Substance use status: in withdrawal Qualified Code(s): F17.213 - Nicotine dependence, cigarettes, with withdrawal (5) Chronic low back pain Current Visit: No Status: Chronic Qualifiers: Back pain laterality: unspecified Sciatica presence: without sciatica Qualified Code(s): M54.5 - Low back pain; G89.29 - Other chronic pain (6) Hyperlipidemia Current Visit: No Status: Chronic Qualifiers: Hyperlipidemia type: unspecified Qualified Code(s): E78.5 - Hyperlipidemia , unspecified (7) Hypertension Current Visit: No Status: Chronic Qualifiers: Hypertension type: essential hypertension Qualified Code(s): I10 - Essential (primary) hypertension (8) Low back pain Current Visit: Yes Status: Acute Cleared for Admission [facility] - Detox or Rehab [facility] Level of Care: Medically Managed Detox Regimen/Protocol: Valium Breathalyzer - Breathalyzer Breathalyzer: 0 Urine Drug Screen - Test Device Lot number: [id number] Expiration date: 05/31/21 - Control Is test valid?: Yes - Results Drug screen NEGATIVE: No Urine drug screen results: THC-Marijuana, NIDA-Cocaine, BZO-Benzodiazepines Inpatient Rehab Admission - Rehab Decision to Admit Inpatient rehab admission?: No
[2019-09-24] MEDS ORDERED: IBUPROFEN 400 MG TABLET (FP) PO PRN (14:03)
[2019-09-24] MEDS ORDERED: ACETAMINOPHEN 325 MG TABLET (FP) PO PRN ×2 (14:03)
[2019-09-24] MEDS ORDERED: BISMUTH SUBSALICYLATE 524 MG/30 ML UD PO PRN (14:03)
[2019-09-24] MEDS ORDERED: MAG HYDROX/AL HYDROX/SIMETH 30 ML UNIT-DOSE CUP PO PRN (14:03)
[2019-09-24] MEDS ORDERED: METHOCARBAMOL 500 MG TABLET PO PRN (14:03)
[2019-09-24] MEDS ORDERED: hydrOXYzine PAMOATE 25 MG CAPSULE (FP) PO PRN (14:03)
[2019-09-24] MEDS ORDERED: MAGNESIUM HYDROX 2400MG/30ML ORAL SUSPENSION 30 ML CUP PO PRN (14:03)
[2019-09-24] MEDS ORDERED: MELATONIN 5 MG TABLETS PO PRN (14:03)
[2019-09-24] MEDS ORDERED: MENTHOL/PHENOL 1 EACH UD MM PRN (14:03)
[2019-09-24] MEDS ORDERED: MAGNESIUM CITRATE 300 ML BOTTLE PO PRN (14:03)
[2019-09-24] MEDS: HYDROCHLOROTHIAZIDE 25 MG TABLET (FP) PO SCH (15:15)
[2019-09-24] MEDS: diazePAM 5 MG TABLET PO PRN (15:15)
[2019-09-24] MEDS: amLODIPine BESYLATE 10 MG TABLET (FP) PO SCH (15:16)
[2019-09-24] MEDS ORDERED: cloNIDine HCL 0.1 MG TABLET PO ONE (19:22)
[2019-09-24] MEDS: THIAMINE HCL 100 MG TABLET (FP) PO SCH (21:33)
[2019-09-24] MEDS: diazePAM 5 MG TABLET PO SCH (21:33)
[2019-09-25] MEDS: diazePAM 5 MG TABLET PO SCH ×3 (05:49→22:30)
[2019-09-25 09:46] LABS: HEMATOCRIT 35.3 % (35.4-49); HEMOGLOBIN 11.6 GM/dL (11.7-16.9); MCH 27.8 pg (25.7-33.7); MCHC 32.8 g/dl (32.0-35.9); MEAN CELL VOLUME 84.6 fl (80-96); MEAN PLT VOLUME 9.6 fl (7.5-11.1); PLATELET COUNT 198 K/MM3 (134-434); RBC 4.17 M/mm3 (4.00-5.60); RDW 14.4 % (11.9-15.9); WHITE BLOOD COUNT 3.7 K/mm3 (4.0-10.0)
[2019-09-25 10:08] LABS: ALBUMIN 2.8 g/dl (3.4-5.0); BILIRUBIN,TOTAL 0.3 mg/dL (0.2-1); BLOOD UREA NITROGEN 32.6 mg/dL (7-18); CALCIUM 8.6 mg/dL (8.5-10.1); CREATININE 1.8 mg/dL (0.55-1.3); POTASSIUM 3.6 mmol/L (3.5-5.1); TOT PROT 6.3 g/dl (6.4-8.2)
--- NOTE | 2019-09-25 10:17 | PN ---
[facility] CIWA - CIWA Score Nausea/Vomitin-Mild Nausea/No Vomiting Muscle Tremors: 3 Anxiety: 3 Agitation: 2 Paroxysmal Sweats: 2 Orientation: 0-Oriented Tacttile Disturbances: 0-None Auditory Disturbances: 0-None Visual Disturbances: 0-None Headache: 1-Very Mild CIWA-Ar Total Score: 12 S Progress Note (SOAP) Subjective: 64 years old male admitted on 09/24/19 for alcohol withdrawal sx management treated with valium detox regimen ate breakfast no trouble chewing swallowing tolerated food and fluid well resting in bed feeling tired prefers to stay in bed today Objective: 09/25/19 10:16 Vital Signs Temperature 96.1 F L 09/25/19 09:15 Pulse Rate 96 H 09/25/19 09:15 Respiratory Rate 18 09/25/19 09:15 Blood Pressure 130/92 09/25/19 09:15 O2 Sat by Pulse Oximetry (%) Laboratory Last Values WBC 3.7 K/mm3 (4.0-10.0) L 09/25/19 08:00 RBC 4.17 M/mm3 (4.00-5.60) 09/25/19 08:00 Hgb 11.6 GM/dL (11.7-16.9) L 09/25/19 08:00 Hct 35.3 % (35.4-49) L 09/25/19 08:00 MCV 84.6 fl (80-96) 09/25/19 08:00 MCH 27.8 pg (25.7-33.7) 09/25/19 08:00 MCHC 32.8 g/dl (32.0-35.9) 09/25/19 08:00 RDW 14.4 % (11.9-15.9) 09/25/19 08:00 Plt Count 198 K/MM3 (134-434) 09/25/19 08:00 MPV 9.6 fl (7.5-11.1) 09/25/19 08:00 Sodium 141 mmol/L (136-145) 09/25/19 08:00 Potassium 3.6 mmol/L (3.5-5.1) 09/25/19 08:00 Chloride 107 mmol/L (98-107) 09/25/19 08:00 Carbon Dioxide 28 mmol/L (21-32) 09/25/19 08:00 Anion Gap 6 MMOL/L (8-16) L 09/25/19 08:00 BUN 32.6 mg/dL (7-18) H 09/25/19 08:00 Creatinine 1.8 mg/dL (0.55-1.3) H 09/25/19 08:00 Est GFR (CKD-EPI)AfAm 45.73 09/25/19 08:00 Est GFR (CKD-EPI)NonAf 39.46 09/25/19 08:00 Random Glucose 105 mg/dL (74-106) 09/25/19 08:00 Calcium 8.6 mg/dL (8.5-10.1) 09/25/19 08:00 Total Bilirubin 0.3 mg/dL (0.2-1) 09/25/19 08:00 AST 35 U/L (15-37) 09/25/19 08:00 ALT 39 U/L (13-61) 09/25/19 08:00 Alkaline Phosphatase 115 U/L (45-117) 09/25/19 08:00 Total Protein 6.3 g/dl (6.4-8.2) L 09/25/19 08:00 Albumin 2.8 g/dl (3.4-5.0) L 09/25/19 08:00 lab noted Assessment: 09/25/19 10:17 alcohol withdrawal sx Plan: continue valium detox regimen
[2019-09-25] MEDS: amLODIPine BESYLATE 10 MG TABLET (FP) PO SCH (10:29)
[2019-09-25] MEDS: PRENATAL VITAMINS W/ FOLIC ACID TABLET (FP) PO SCH (10:29)
[2019-09-25] MEDS: HYDROCHLOROTHIAZIDE 25 MG TABLET (FP) PO SCH (12:03)
[2019-09-25] MEDS ORDERED: cloNIDine HCL 0.1 MG TABLET PO PRN (17:55)
[2019-09-25] MEDS: THIAMINE HCL 100 MG TABLET (FP) PO SCH (22:30)
[2019-09-26] MEDS: diazePAM 5 MG TABLET PO SCH ×2 (05:45→17:53)
[2019-09-26] MEDS: amLODIPine BESYLATE 10 MG TABLET (FP) PO SCH (09:50)
[2019-09-26] MEDS: PRENATAL VITAMINS W/ FOLIC ACID TABLET (FP) PO SCH (09:51)
[2019-09-26] MEDS: HYDROCHLOROTHIAZIDE 25 MG TABLET (FP) PO SCH (09:51)
--- NOTE | 2019-09-26 13:36 | PN ---
[facility] CIWA - CIWA Score Nausea/Vomitin-No Nausea/No Vomiting Muscle Tremors: 2 Anxiety: 2 Agitation: 2 Paroxysmal Sweats: 1-Minimal Palms Moist Orientation: 0-Oriented Tacttile Disturbances: 0-None Auditory Disturbances: 0-None Visual Disturbances: 0-None Headache: 0-None Present CIWA-Ar Total Score: 7 S Progress Note (SOAP) Subjective: 64 years old male admitted on 09/24/19 for alcohol withdrawal sx management treated with valim detox regimen feeling better ate breakfast and lunch tolerated food and fluid well ambulating on hallway discuss aftercare with staff Objective: 09/26/19 13:35 Vital Signs Temperature 98.7 F 09/26/19 13:22 Pulse Rate 88 09/26/19 13:22 Respiratory Rate 18 09/26/19 13:22 Blood Pressure 127/81 09/26/19 13:22 O2 Sat by Pulse Oximetry (%) Laboratory Last Values WBC 3.7 K/mm3 (4.0-10.0) L 09/25/19 08:00 RBC 4.17 M/mm3 (4.00-5.60) 09/25/19 08:00 Hgb 11.6 GM/dL (11.7-16.9) L 09/25/19 08:00 Hct 35.3 % (35.4-49) L 09/25/19 08:00 MCV 84.6 fl (80-96) 09/25/19 08:00 MCH 27.8 pg (25.7-33.7) 09/25/19 08:00 MCHC 32.8 g/dl (32.0-35.9) 09/25/19 08:00 RDW 14.4 % (11.9-15.9) 09/25/19 08:00 Plt Count 198 K/MM3 (134-434) 09/25/19 08:00 MPV 9.6 fl (7.5-11.1) 09/25/19 08:00 Sodium 141 mmol/L (136-145) 09/25/19 08:00 Potassium 3.6 mmol/L (3.5-5.1) 09/25/19 08:00 Chloride 107 mmol/L (98-107) 09/25/19 08:00 Carbon Dioxide 28 mmol/L (21-32) 09/25/19 08:00 Anion Gap 6 MMOL/L (8-16) L 09/25/19 08:00 BUN 32.6 mg/dL (7-18) H 09/25/19 08:00 Creatinine 1.8 mg/dL (0.55-1.3) H 09/25/19 08:00 Est GFR (CKD-EPI)AfAm 45.73 09/25/19 08:00 Est GFR (CKD-EPI)NonAf 39.46 09/25/19 08:00 Random Glucose 105 mg/dL (74-106) 09/25/19 08:00 Calcium 8.6 mg/dL (8.5-10.1) 09/25/19 08:00 Total Bilirubin 0.3 mg/dL (0.2-1) 09/25/19 08:00 AST 35 U/L (15-37) 09/25/19 08:00 ALT 39 U/L (13-61) 09/25/19 08:00 Alkaline Phosphatase 115 U/L (45-117) 09/25/19 08:00 Total Protein 6.3 g/dl (6.4-8.2) L 09/25/19 08:00 Albumin 2.8 g/dl (3.4-5.0) L 09/25/19 08:00 RPR Titer Nonreactive (NONREACTIVE) 09/25/19 08:00 lab noted Assessment: 09/26/19 13:35 alcohol withdrawal sx Plan: continue valium detox regimen
[2019-09-26] MEDS: THIAMINE HCL 100 MG TABLET (FP) PO SCH (22:49)
[2019-09-26] MEDS: diazePAM 5 MG TABLET PO PRN (22:49)
[2019-09-27] MEDS ORDERED: diazePAM 5 MG TABLET PO ONE (06:00)
[2019-09-27 09:17] VITALS: BP 147/97; PULSE 94; TEMP 97.6
--- NOTE | 2019-09-27 10:58 | DS ---
[facility] Detox Discharge Summary Admission Date: 09/24/19 Discharge Date: 09/27/19 - History Present History: Alcohol Dependence Additional Comments: 64 years old male admitted on 09/24/19 for alcohol withdrawal sx management treated wtih valium detox regimen patient is alert oriented x 3 cardiac s1s2 regular rate rhythm respiratory clear lung bilaterally on auscultation abdomen soft no rebound tenderness Pertinent Past History: patient prefers return home for personal belonging and return for [facility] admission - Physical Exam Results Vital Signs: Vital Signs Temperature 97.6 F 09/27/19 09:16 Pulse Rate 94 H 09/27/19 09:16 Respiratory Rate 20 09/27/19 09:16 Blood Pressure 147/97 09/27/19 09:16 O2 Sat by Pulse Oximetry (%) Pertinent Admission Physical Exam Findings: alcohol withdrawal sx Laboratory Last Values WBC 3.7 K/mm3 (4.0-10.0) L 09/25/19 08:00 RBC 4.17 M/mm3 (4.00-5.60) 09/25/19 08:00 Hgb 11.6 GM/dL (11.7-16.9) L 09/25/19 08:00 Hct 35.3 % (35.4-49) L 09/25/19 08:00 MCV 84.6 fl (80-96) 09/25/19 08:00 MCH 27.8 pg (25.7-33.7) 09/25/19 08:00 MCHC 32.8 g/dl (32.0-35.9) 09/25/19 08:00 RDW 14.4 % (11.9-15.9) 09/25/19 08:00 Plt Count 198 K/MM3 (134-434) 09/25/19 08:00 MPV 9.6 fl (7.5-11.1) 09/25/19 08:00 Sodium 141 mmol/L (136-145) 09/25/19 08:00 Potassium 3.6 mmol/L (3.5-5.1) 09/25/19 08:00 Chloride 107 mmol/L (98-107) 09/25/19 08:00 Carbon Dioxide 28 mmol/L (21-32) 09/25/19 08:00 Anion Gap 6 MMOL/L (8-16) L 09/25/19 08:00 BUN 32.6 mg/dL (7-18) H 09/25/19 08:00 Creatinine 1.8 mg/dL (0.55-1.3) H 09/25/19 08:00 Est GFR (CKD-EPI)AfAm 45.73 09/25/19 08:00 Est GFR (CKD-EPI)NonAf 39.46 09/25/19 08:00 Random Glucose 105 mg/dL (74-106) 09/25/19 08:00 Calcium 8.6 mg/dL (8.5-10.1) 09/25/19 08:00 Total Bilirubin 0.3 mg/dL (0.2-1) 09/25/19 08:00 AST 35 U/L (15-37) 09/25/19 08:00 ALT 39 U/L (13-61) 09/25/19 08:00 Alkaline Phosphatase 115 U/L (45-117) 09/25/19 08:00 Total Protein 6.3 g/dl (6.4-8.2) L 09/25/19 08:00 Albumin 2.8 g/dl (3.4-5.0) L 09/25/19 08:00 RPR Titer Nonreactive (NONREACTIVE) 09/25/19 08:00 lab noted - Treatment Hospital Course: Detox Protocol Followed, Detoxed Safely, Responded well, Discharged Condition Good, Rehab Referral Accepted Patient has Accepted a Re[facility] Referral to: [facility] - Medication Discharge Medications: Ambulatory Orders Amlodipine Besylate [Norvasc -] 10 mg PO DAILY #30 tablet 03/18/18 Hydrochlorothiazide 25 mg PO DAILY 09/24/19 - Diagnosis (1) Alcohol dependence with uncomplicated withdrawal Current Visit: Yes Status: Acute (2) Nicotine dependence Current Visit: Yes Status: Acute Qualifiers: Nicotine product type: cigarettes Substance use status: in withdrawal Qualified Code(s): F17.213 - Nicotine dependence, cigarettes, with withdrawal (3) Substance induced mood disorder Current Visit: Yes Status: Suspected (4) Hyperlipidemia Current Visit: Yes Status: Chronic Qualifiers: Hyperlipidemia type: unspecified Qualified Code(s): E78.5 - Hyperlipidemia , unspecified (5) Hypertension Current Visit: Yes Status: Chronic Qualifiers: Hypertension type: essential hypertension Qualified Code(s): I10 - Essential (primary) hypertension - AMA Did Patient Leave Against Medical Advice: No CIWA Score - CIWA Score Nausea/Vomitin-No Nausea/No Vomiting Muscle Tremors: 1-None Visible, but [place] Anxiety: 1-Mildly Anxious Agitation: 1-Slight > Activity Paroxysmal Sweats: No Perspiration Orientation: 0-Oriented Tacttile Disturbances: 0-None Auditory Disturbances: 0-None Visual Disturbances: 0-None Headache: 0-None Present CIWA-Ar Total Score: 3
== END 2019-09-27 09:54 | disposition home or self-care (01) | DRG 774 ==
LOC: YASAS 12:02 → Y3N 14:45
PROVIDERS: ADMIT Allergy & Immunology; ATTEND Allergy & Immunology
PROC: HZ2ZZZZ Detoxification Services for Substance Abuse Treatment (ICD-10-PCS; principal; 2019-09-24)
DX: F10.230 Alcohol dependence with withdrawal, uncomplicated (principal); F14.20 Cocaine dependence, uncomplicated; F12.20 Cannabis dependence, uncomplicated; F17.210 Nicotine dependence, cigarettes, uncomplicated; F19.24 Other psychoactive substance dependence with psychoactive substance-induced mood disorder; E78.00 Pure hypercholesterolemia, unspecified; M54.5 Low back pain; G89.29 Other chronic pain
CPT/HCPCS: 36415; 80053; 85027; 86593; J0735

== ENCOUNTER 2019-11-01 11:09 | Inpatient (IN) | payer OTHER ==
[2019-11-01 11:45] VITALS: BMI 23.3
--- NOTE | 2019-11-01 12:13 | HP ---
CIWA Score Nausea/Vomitin-Mild Nausea/No Vomiting Muscle Tremors: 3 Anxiety: 1-Mildly Anxious Agitation: 4-Moderately Restless Paroxysmal Sweats: No Perspiration Orientation: 0-Oriented Tacttile Disturbances: 0-None Auditory Disturbances: 0-None Visual Disturbances: 0-None Headache: 3-Moderate CIWA-Ar Total Score: 12 - Admission Criteria OASAS Guidelines: Admission for Medically Managed Detox: Requires at least one of the followin. CIWA greater than 12 2. Seizures within the past 24 hours 3. Delirium tremens within the past 24 hours 4. Hallucinations within the past 24 hours 5. Acute intervention needed for co occurring medical disorder 6. Acute intervention needed for co occurring psychiatric disorder 7. Severe withdrawal that cannot be handled at a lower level of care (continued vomiting, continued diarrhea, abnormal vital signs) requiring intravenous medication and/or fluids 8. Admitting History and Physical - Admission Chief Complaint: "I want to stop drinking." History of Present Illness: 64 years old male admitted on 09/24-09/27 but prematurely left because he stated he had an appointment with a pain management doctor in the city. He has had multiple detoxes here and has relapsed multiple time. He even was in [facility] for almost one year after a hip replacement. But as soon as he was discharged he relapsed and started drinking again. He is currently drinking 2 pints of vodka daily plus some beer, last drank at 8: 00AM. He needs eye openers. He denies withdrawal seizures. He has had blackout but a few years ago. He smokes 1ppd smoking since age 18 years old. CIWA 12 breathalyzer 0.020 PMH: HTN, Low back pain chronic, Psurg: Left hip replacement Psych: None He has family support here in [place] and that is why he comes here, though he resides in [place]. 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 Loss EENT: reports: No Symptoms Reported Respiratory: reports: No Symptoms reported Cardiac: reports: No Symptoms Reported GI: reports: No Symptoms Reported : reports: No Symptoms Reported Musculoskeletal: reports: No Symptoms Reported Integumentary: reports: No Symptoms Reported Neuro: reports: No Symptoms reported Endocrine: reports: No Symptoms Reported Hematology: reports: No Symptoms Reported Psychiatric: reports: No Sypmtoms Reported, Agitated, Anxious, Depressed Other Systems: Reviewed and Negative Patient History - Patient Medical History Hx Anemia: No Hx Asthma: No Hx Chronic Obstructive Pulmonary Disease (COPD): No Hx Cancer: No Hx Cardiac Disorders: No Hx Congestive Heart Failure: No Hx Hypertension: Yes (ON MEDICATION) Hx Hypercholesterolemia: Yes (on lipitor) Hx Pacemaker: No HX Cerebrovascular Accident: No Hx Seizures: No Hx Dementia: No Hx Diabetes: No Hx Gastrointestinal Disorders: No Hx Liver Disease: No Hx Genitourinary Disorders: No Hx Sexually Transmitted Disorders: No Hx Renal Disease (ESRD): No Hx Thyroid Disease: No Hx Human Immunodeficiency Virus (HIV): No (last 04/19 negative) Hx Hepatitis C: No Hx Depression: No Hx Suicide Attempt: No Hx Bipolar Disorder: No Hx Schizophrenia: No - Patient Surgical History Past Surgical History: No Hx Neurologic Surgery: No Hx Cataract Extraction: No Hx Cardiac Surgery: No Hx Lung Surgery: No Hx Breast Surgery: No Hx Breast Biopsy: No Hx Abdominal Surgery: No Hx Appendectomy: No Hx Cholecystectomy: No Hx Genitourinary Surgery: No Hx Section: No Hx Orthopedic Surgery: No Other Surgical History: left hip replacement Anesthesia Reaction: No - PPD History Previous Implant?: Yes Documented Results: Negative w/proof Date: 09/26/19 Results: NEGATIVE PPD to be Administered?: No - Smoking Cessation Smoking history: Current every day smoker Have you smoked in the past 12 months: Yes Aproximately how many cigarettes per day: 10 Cigars Per Day: 0 Hx Chewing Tobacco Use: No Initiated information on smoking cessation: Yes 'Breaking Loose' booklet given: 11/01/19 - Substances abused Alcohol Substance route: Oral Frequency: Daily Amount used: 2 PINTS OF VODKA Age of first use: 19 Date of last use: 11/01/19 Cocaine Substance route: Inhalation Frequency: Daily Amount used: 1-2 GRAMS Age of first use: 22 Date of last use: 11/01/19 Marijuana/Hashish Substance route: Smoking Frequency: Daily Amount used: 1 GRAM Age of first use: 16 Date of last use: 10/31/19 Admission Physical Exam [facility] - Vital Signs Vital Signs: Vital Signs - 24 hr 11/01/19 11/01/19 11:41 11:53 Temperature 98.0 F 98.0 F Pulse Rate 88 88 Respiratory 16 16 Rate Blood Pressure 178/109 H 178/109 H - Physical General Appearance: Yes: Mild Distress, Alcohol on Breath, Tremorous, Irritable , Sweating, Anxious HEENTM: Yes: EOMI, Hearing grossly Normal, Normal ENT Inspection, Normocephalic , Normal Voice, NIRMALA, Pharynx Normal, Tm's normal Respiratory: Yes: Chest Non-Tender, Lungs Clear, Normal Breath Sounds, No Respiratory Distress, No Accessory Muscle Use Neck: Yes: No masses,lesions,Nodules, Supple, Trachea in good position Breast: Yes: Within Normal Limits Cardiology: Yes: Regular Rhythm, S1, S2, Tachycardia Abdominal: Yes: Non Tender, Soft, Increased Bowel Sounds, Protuberent Genitourinary: Yes: Within Normal Limits Back: Yes: Normal Inspection Musculoskeletal: Yes: full range of Motion, Gait Steady, Pelvis Stable Extremities: Yes: Normal Capillary Refill, Normal Inspection, Normal Range of Motion, Non-Tender Neurological: 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 intact, Fully Oriented, Alert, Motor Strength 5/5, Normal Mood/Affect, Normal Response Integumentary: Yes: Normal Color, Warm Lymphatic: Yes: Within Normal Limits - Diagnostic (1) Alcohol dependence with uncomplicated withdrawal Current Visit: Yes Status: Acute (2) Cannabis dependence Current Visit: Yes Status: Acute (3) Cocaine dependence, uncomplicated Current Visit: Yes Status: Acute (4) Chronic low back pain Current Visit: Yes Status: Chronic Qualifiers: Back pain laterality: unspecified Sciatica presence: without sciatica Qualified Code(s): M54.5 - Low back pain; G89.29 - Other chronic pain (5) Chronic renal insufficiency, stage III (moderate) Current Visit: Yes Status: Chronic (6) Cocaine dependence Current Visit: Yes Status: Chronic Qualifiers: Substance use status: uncomplicated Qualified Code(s): F14.20 - Cocaine dependence, uncomplicated (7) Hyperlipidemia Current Visit: Yes Status: Chronic Qualifiers: Hyperlipidemia type: unspecified Qualified Code(s): E78.5 - Hyperlipidemia , unspecified (8) Hypertension Current Visit: Yes Status: Chronic Qualifiers: Hypertension type: essential hypertension Qualified Code(s): I10 - Essential (primary) hypertension Cleared for Admission [facility] - Detox or Rehab [facility] Level of Care: Medically Managed Detox Regimen/Protocol: Librium Claeared for Rehab Admission: No Screened but not Admitted - Documentation of Visit Screened but not Admitted: No Breathalyzer - Breathalyzer Breathalyzer: 0.020 Urine Drug Screen - Test Device Lot number: [id number] Expiration date: 05/31/21 - Control Is test valid?: Yes - Results Drug screen NEGATIVE: No Urine drug screen results: THC-Marijuana, NIDA-Cocaine, BZO-Benzodiazepines Inpatient Rehab Admission - Rehab Decision to Admit Inpatient rehab admission?: No
[2019-11-01] MEDS ORDERED: ACETAMINOPHEN 325 MG TABLET (FP) PO PRN ×2 (12:21)
[2019-11-01] MEDS ORDERED: chlordiazePOXIDE HCL 25 MG CAPSULE PO PRN (12:21)
[2019-11-01] MEDS ORDERED: IBUPROFEN 400 MG TABLET (FP) PO PRN (12:21)
[2019-11-01] MEDS ORDERED: BISMUTH SUBSALICYLATE 524 MG/30 ML UD PO PRN (12:21)
[2019-11-01] MEDS ORDERED: MELATONIN 5 MG TABLETS PO PRN (12:21)
[2019-11-01] MEDS ORDERED: MAGNESIUM CITRATE 300 ML BOTTLE PO PRN (12:21)
[2019-11-01] MEDS ORDERED: MENTHOL/PHENOL 1 EACH UD MM PRN (12:21)
[2019-11-01] MEDS ORDERED: MAG HYDROX/AL HYDROX/SIMETH 30 ML UNIT-DOSE CUP PO PRN (12:21)
[2019-11-01] MEDS ORDERED: MAGNESIUM HYDROX 2400MG/30ML ORAL SUSPENSION 30 ML CUP PO PRN (12:21)
[2019-11-01] MEDS ORDERED: METHOCARBAMOL 500 MG TABLET PO PRN (12:21)
[2019-11-01] MEDS ORDERED: hydrOXYzine PAMOATE 25 MG CAPSULE (FP) PO PRN (12:21)
[2019-11-01] MEDS: chlordiazePOXIDE HCL 25 MG CAPSULE PO SCH ×3 (14:23→23:29)
[2019-11-01] MEDS: THIAMINE HCL 100 MG TABLET (FP) PO SCH (23:28)
[2019-11-02] MEDS: chlordiazePOXIDE HCL 25 MG CAPSULE PO SCH ×4 (06:25→22:58)
[2019-11-02] MEDS ORDERED: amLODIPine BESYLATE 10 MG TABLET (FP) PO SCH (10:00)
[2019-11-02] MEDS ORDERED: HYDROCHLOROTHIAZIDE 25 MG TABLET (FP) PO SCH (10:00)
[2019-11-02 10:14] LABS: HEMATOCRIT 35.9 % (35.4-49); HEMOGLOBIN 11.7 GM/dL (11.7-16.9); MCH 27.3 pg (25.7-33.7); MCHC 32.5 g/dl (32.0-35.9); MEAN PLT VOLUME 9.5 fl (7.5-11.1); PLATELET COUNT 195 K/MM3 (134-434); RBC 4.28 M/mm3 (4.00-5.60); RDW 15.1 % (11.9-15.9); WHITE BLOOD COUNT 4.4 K/mm3 (4.0-10.0)
[2019-11-02] MEDS: HYDROCHLOROTHIAZIDE 25 MG TABLET (FP) PO SCH (10:21)
[2019-11-02] MEDS: amLODIPine BESYLATE 10 MG TABLET (FP) PO SCH (10:21)
[2019-11-02] MEDS: PRENATAL VITAMINS W/ FOLIC ACID TABLET (FP) PO SCH (10:21)
--- NOTE | 2019-11-02 10:24 | PN ---
S CIWA - CIWA Score Nausea/Vomitin-Mild Nausea/No Vomiting Muscle Tremors: 3 Anxiety: 3 Agitation: 1-Slight > Activity Paroxysmal Sweats: 2 Orientation: 0-Oriented Tacttile Disturbances: 0-None Auditory Disturbances: 0-None Visual Disturbances: 0-None Headache: 1-Very Mild CIWA-Ar Total Score: 11 BHS Progress Note (SOAP) Subjective: 64 years old male admitted on 11/01/19 for alcohol withdrawal sx management treating with librium detox regimen ate breakfast tolerated food well feeling tired resting in bed patient has long history of hypertension treated with amlodipine and hctz Objective: 11/02/19 10:25 Vital Signs Temperature 97.8 F 11/02/19 09:12 Pulse Rate 84 11/02/19 09:12 Respiratory Rate 16 11/02/19 09:12 Blood Pressure 157/95 11/02/19 09:12 O2 Sat by Pulse Oximetry (%) Laboratory Last Values WBC 4.4 K/mm3 (4.0-10.0) 11/02/19 08:00 RBC 4.28 M/mm3 (4.00-5.60) 11/02/19 08:00 Hgb 11.7 GM/dL (11.7-16.9) 11/02/19 08:00 Hct 35.9 % (35.4-49) 11/02/19 08:00 MCV 84.0 fl (80-96) 11/02/19 08:00 MCH 27.3 pg (25.7-33.7) 11/02/19 08:00 MCHC 32.5 g/dl (32.0-35.9) 11/02/19 08:00 RDW 15.1 % (11.9-15.9) 11/02/19 08:00 Plt Count 195 K/MM3 (134-434) 11/02/19 08:00 MPV 9.5 fl (7.5-11.1) 11/02/19 08:00 lab noted bp elevation adds isosorb mono 30mg and carvedilol 3.125 mg po bid Assessment: 11/02/19 10:26 alcohol withdrawal Plan: librium detox regimen
[2019-11-02 10:30] LABS: ALBUMIN 2.8 g/dl (3.4-5.0); BILIRUBIN,TOTAL 0.1 mg/dL (0.2-1); BLOOD UREA NITROGEN 32.5 mg/dL (7-18); CALCIUM 8.5 mg/dL (8.5-10.1); CREATININE 1.5 mg/dL (0.55-1.3); POTASSIUM 4.2 mmol/L (3.5-5.1); TOT PROT 6.3 g/dl (6.4-8.2)
[2019-11-02] MEDS: NICOTINE 14 MG/24 HOURS TOPICAL PATCH TD SCH (11:00)
[2019-11-02] MEDS: CARVEDILOL 3.125 MG TABLET (FP) PO SCH ×2 (11:30→22:57)
[2019-11-02] MEDS: ASPIRIN 81 MG CHEWABLE TABLETS PO SCH (11:30)
[2019-11-02] MEDS: ISOSORBIDE MONONITRATE 30 MG TAB.SR.24H (FP) PO SCH (11:30)
--- NOTE | 2019-11-02 15:15 | EKG ---
Test Reason : Blood Pressure : / mmHG Vent. Rate : 075 BPM Atrial Rate : 075 BPM P-R Int : 152 ms QRS Dur : 092 ms QT Int : 446 ms P-R-T Axes : 058 -35 -33 degrees QTc Int : 498 ms POOR DATA QUALITY, INTERPRETATION MAY BE ADVERSELY AFFECTED NORMAL SINUS RHYTHM POSSIBLE LEFT ATRIAL ENLARGEMENT LEFT AXIS DEVIATION LEFT VENTRICULAR HYPERTROPHY CANNOT RULE OUT SEPTAL INFARCT (CITED ON OR BEFORE 06-SEP-2017) T WAVE ABNORMALITY, CONSIDER INFERIOR ISCHEMIA ABNORMAL ECG WHEN COMPARED WITH ECG OF 29-APR-2018 12:22, QUESTIONABLE CHANGE IN INITIAL FORCES OF SEPTAL LEADS Confirmed by CHENG BURNETTE MD ([id number]) on 11/02/2019 3:14:50 PM Referred By: ADDISON Confirmed By:CHENG BURNETTE MD
[2019-11-02] MEDS: THIAMINE HCL 100 MG TABLET (FP) PO SCH (22:57)
[2019-11-03] MEDS: chlordiazePOXIDE HCL 25 MG CAPSULE PO SCH ×4 (05:30→22:51)
[2019-11-03] MEDS: ISOSORBIDE MONONITRATE 30 MG TAB.SR.24H (FP) PO SCH (09:26)
[2019-11-03] MEDS: amLODIPine BESYLATE 10 MG TABLET (FP) PO SCH (09:26)
[2019-11-03] MEDS: HYDROCHLOROTHIAZIDE 25 MG TABLET (FP) PO SCH (09:26)
[2019-11-03] MEDS: ASPIRIN 81 MG CHEWABLE TABLETS PO SCH (09:27)
[2019-11-03] MEDS: PRENATAL VITAMINS W/ FOLIC ACID TABLET (FP) PO SCH (09:27)
[2019-11-03] MEDS: CARVEDILOL 3.125 MG TABLET (FP) PO SCH ×2 (09:27→22:50)
[2019-11-03] MEDS: NICOTINE 14 MG/24 HOURS TOPICAL PATCH TD SCH (09:28)
--- NOTE | 2019-11-03 10:18 | PN ---
S CIWA - CIWA Score Nausea/Vomitin-No Nausea/No Vomiting Muscle Tremors: None Anxiety: 3 Agitation: 0-Normal Activity Paroxysmal Sweats: 3 Orientation: 0-Oriented Tacttile Disturbances: 0-None Auditory Disturbances: 0-None Visual Disturbances: 0-None Headache: 2-Mild CIWA-Ar Total Score: 8 BHS Progress Note (SOAP) Subjective: c/o sweats, anxiety, and headache. Objective: 11/03/19 10:16 Vital Signs 11/03/19 11/03/19 11/03/19 03:30 06:29 09:16 Temperature 97.4 F L 98.2 F Pulse Rate 75 80 Respiratory 18 18 18 Rate Blood Pressure 146/93 146/90 Laboratory Last Values WBC 4.4 K/mm3 (4.0-10.0) 11/02/19 08:00 RBC 4.28 M/mm3 (4.00-5.60) 11/02/19 08:00 Hgb 11.7 GM/dL (11.7-16.9) 11/02/19 08:00 Hct 35.9 % (35.4-49) 11/02/19 08:00 MCV 84.0 fl (80-96) 11/02/19 08:00 MCH 27.3 pg (25.7-33.7) 11/02/19 08:00 MCHC 32.5 g/dl (32.0-35.9) 11/02/19 08:00 RDW 15.1 % (11.9-15.9) 11/02/19 08:00 Plt Count 195 K/MM3 (134-434) 11/02/19 08:00 MPV 9.5 fl (7.5-11.1) 11/02/19 08:00 Sodium 143 mmol/L (136-145) 11/02/19 08:00 Potassium 4.2 mmol/L (3.5-5.1) 11/02/19 08:00 Chloride 110 mmol/L (98-107) H 11/02/19 08:00 Carbon Dioxide 28 mmol/L (21-32) 11/02/19 08:00 Anion Gap 6 MMOL/L (8-16) L 11/02/19 08:00 BUN 32.5 mg/dL (7-18) H 11/02/19 08:00 Creatinine 1.5 mg/dL (0.55-1.3) H 11/02/19 08:00 Est GFR (CKD-EPI)AfAm 57.01 11/02/19 08:00 Est GFR (CKD-EPI)NonAf 49.19 11/02/19 08:00 Random Glucose 92 mg/dL (74-106) 11/02/19 08:00 Calcium 8.5 mg/dL (8.5-10.1) 11/02/19 08:00 Total Bilirubin 0.1 mg/dL (0.2-1) L 11/02/19 08:00 AST 30 U/L (15-37) 11/02/19 08:00 ALT 36 U/L (13-61) 11/02/19 08:00 Alkaline Phosphatase 119 U/L (45-117) H 11/02/19 08:00 Total Protein 6.3 g/dl (6.4-8.2) L 11/02/19 08:00 Albumin 2.8 g/dl (3.4-5.0) L 11/02/19 08:00 RPR Titer Nonreactive (NONREACTIVE) 11/02/19 08:00 Labs noted Assessment: 11/03/19 10:16 AOX3, in no acute respiratory distress. Full ROM, ambulating in the unit. Withdrawal symptoms. Plan: continue detox.
[2019-11-03] MEDS: THIAMINE HCL 100 MG TABLET (FP) PO SCH (22:51)
[2019-11-04] MEDS ORDERED: chlordiazePOXIDE HCL 10 MG CAPSULE PO PRN
[2019-11-04] MEDS: chlordiazePOXIDE HCL 10 MG CAPSULE PO SCH ×4 (06:20→22:46)
[2019-11-04] MEDS: ASPIRIN 81 MG CHEWABLE TABLETS PO SCH (10:42)
[2019-11-04] MEDS: NICOTINE 14 MG/24 HOURS TOPICAL PATCH TD SCH (10:42)
[2019-11-04] MEDS: ISOSORBIDE MONONITRATE 30 MG TAB.SR.24H (FP) PO SCH (10:42)
[2019-11-04] MEDS: PRENATAL VITAMINS W/ FOLIC ACID TABLET (FP) PO SCH (10:42)
[2019-11-04] MEDS: amLODIPine BESYLATE 10 MG TABLET (FP) PO SCH (10:42)
[2019-11-04] MEDS: HYDROCHLOROTHIAZIDE 25 MG TABLET (FP) PO SCH (10:42)
[2019-11-04] MEDS: CARVEDILOL 3.125 MG TABLET (FP) PO SCH ×2 (10:42→22:46)
--- NOTE | 2019-11-04 11:25 | PN ---
S CIWA - CIWA Score Nausea/Vomitin-No Nausea/No Vomiting Muscle Tremors: 1-None Visible, but [place] Anxiety: 3 Agitation: 0-Normal Activity Paroxysmal Sweats: 3 Orientation: 0-Oriented Tacttile Disturbances: 0-None Auditory Disturbances: 0-None Visual Disturbances: 0-None Headache: 0-None Present CIWA-Ar Total Score: 7 BHS Progress Note (SOAP) Subjective: c/o sweats, anxiety, and mild shakes. Objective: 11/04/19 11:21 Vital Signs 11/04/19 11/04/19 11/04/19 03:30 06:13 09:11 Temperature 97.7 F 97.5 F L Pulse Rate 79 74 Respiratory 18 18 18 Rate Blood Pressure 150/89 168/108 H Lab Results WBC 4.4 K/mm3 (4.0-10.0) 11/02/19 08:00 RBC 4.28 M/mm3 (4.00-5.60) 11/02/19 08:00 Hgb 11.7 GM/dL (11.7-16.9) 11/02/19 08:00 Hct 35.9 % (35.4-49) 11/02/19 08:00 MCV 84.0 fl (80-96) 11/02/19 08:00 MCHC 32.5 g/dl (32.0-35.9) 11/02/19 08:00 RDW 15.1 % (11.9-15.9) 11/02/19 08:00 Plt Count 195 K/MM3 (134-434) 11/02/19 08:00 Sodium 143 mmol/L (136-145) 11/02/19 08:00 Potassium 4.2 mmol/L (3.5-5.1) 11/02/19 08:00 Chloride 110 mmol/L (98-107) H 11/02/19 08:00 Carbon Dioxide 28 mmol/L (21-32) 11/02/19 08:00 Anion Gap 6 MMOL/L (8-16) L 11/02/19 08:00 BUN 32.5 mg/dL (7-18) H 11/02/19 08:00 Creatinine 1.5 mg/dL (0.55-1.3) H 11/02/19 08:00 Random Glucose 92 mg/dL (74-106) 11/02/19 08:00 Calcium 8.5 mg/dL (8.5-10.1) 11/02/19 08:00 Labs noted. Assessment: 11/04/19 11:22 AOX3, in no acute respiratory distress. Full ROM, ambulating in the unit. Withdrawal symptoms. Plan: continue detox. Increase fluids.
[2019-11-04] MEDS: THIAMINE HCL 100 MG TABLET (FP) PO SCH (22:45)
[2019-11-05] MEDS: chlordiazePOXIDE HCL 10 MG CAPSULE PO SCH ×2 (07:07→17:46)
[2019-11-05] MEDS: CARVEDILOL 3.125 MG TABLET (FP) PO SCH ×2 (09:57→22:23)
[2019-11-05] MEDS: PRENATAL VITAMINS W/ FOLIC ACID TABLET (FP) PO SCH (09:57)
[2019-11-05] MEDS: amLODIPine BESYLATE 10 MG TABLET (FP) PO SCH (09:57)
[2019-11-05] MEDS: NICOTINE 14 MG/24 HOURS TOPICAL PATCH TD SCH (09:57)
[2019-11-05] MEDS: ISOSORBIDE MONONITRATE 30 MG TAB.SR.24H (FP) PO SCH (09:57)
[2019-11-05] MEDS: ASPIRIN 81 MG CHEWABLE TABLETS PO SCH (09:57)
[2019-11-05] MEDS: HYDROCHLOROTHIAZIDE 25 MG TABLET (FP) PO SCH (09:57)
--- NOTE | 2019-11-05 10:27 | PN ---
S CIWA - CIWA Score Nausea/Vomitin-No Nausea/No Vomiting Muscle Tremors: 1-None Visible, but [place] Anxiety: 2 Agitation: 1-Slight > Activity Paroxysmal Sweats: No Perspiration Orientation: 0-Oriented Tacttile Disturbances: 0-None Auditory Disturbances: 0-None Visual Disturbances: 0-None Headache: 0-None Present CIWA-Ar Total Score: 4 BHS Progress Note (SOAP) Subjective: 64 years old male admitted on 11/01/19 for alcohol withdrawal sx management treating with librium detox regiment feeling better today less tremor mild anxiety long history of bp elevation monitoring [facility] provider patient agrees to return to primary care for antihypertensant dosage adjustment Objective: 11/05/19 10:26 Vital Signs Temperature 98.8 F 11/05/19 09:17 Pulse Rate 73 11/05/19 09:17 Respiratory Rate 16 11/05/19 09:17 Blood Pressure 139/90 11/05/19 09:17 O2 Sat by Pulse Oximetry (%) Laboratory Last Values WBC 4.4 K/mm3 (4.0-10.0) 11/02/19 08:00 RBC 4.28 M/mm3 (4.00-5.60) 11/02/19 08:00 Hgb 11.7 GM/dL (11.7-16.9) 11/02/19 08:00 Hct 35.9 % (35.4-49) 11/02/19 08:00 MCV 84.0 fl (80-96) 11/02/19 08:00 MCH 27.3 pg (25.7-33.7) 11/02/19 08:00 MCHC 32.5 g/dl (32.0-35.9) 11/02/19 08:00 RDW 15.1 % (11.9-15.9) 11/02/19 08:00 Plt Count 195 K/MM3 (134-434) 11/02/19 08:00 MPV 9.5 fl (7.5-11.1) 11/02/19 08:00 Sodium 143 mmol/L (136-145) 11/02/19 08:00 Potassium 4.2 mmol/L (3.5-5.1) 11/02/19 08:00 Chloride 110 mmol/L (98-107) H 11/02/19 08:00 Carbon Dioxide 28 mmol/L (21-32) 11/02/19 08:00 Anion Gap 6 MMOL/L (8-16) L 11/02/19 08:00 BUN 32.5 mg/dL (7-18) H 11/02/19 08:00 Creatinine 1.5 mg/dL (0.55-1.3) H 11/02/19 08:00 Est GFR (CKD-EPI)AfAm 57.01 11/02/19 08:00 Est GFR (CKD-EPI)NonAf 49.19 11/02/19 08:00 Random Glucose 92 mg/dL (74-106) 11/02/19 08:00 Calcium 8.5 mg/dL (8.5-10.1) 11/02/19 08:00 Total Bilirubin 0.1 mg/dL (0.2-1) L 11/02/19 08:00 AST 30 U/L (15-37) 11/02/19 08:00 ALT 36 U/L (13-61) 11/02/19 08:00 Alkaline Phosphatase 119 U/L (45-117) H 11/02/19 08:00 Total Protein 6.3 g/dl (6.4-8.2) L 11/02/19 08:00 Albumin 2.8 g/dl (3.4-5.0) L 11/02/19 08:00 RPR Titer Nonreactive (NONREACTIVE) 11/02/19 08:00 lab noted Assessment: 11/05/19 10:27 alcohol withdrawal Plan: librium regimen
[2019-11-05] MEDS ORDERED: LISINOPRIL 10 MG TABLET (FP) PO SCH (22:00)
[2019-11-05] MEDS: THIAMINE HCL 100 MG TABLET (FP) PO SCH (22:24)
[2019-11-06] MEDS ORDERED: chlordiazePOXIDE HCL 10 MG CAPSULE PO ONE (05:00)
[2019-11-06 09:09] VITALS: BP 147/99; PULSE 96; TEMP 98.5
[2019-11-06] MEDS: amLODIPine BESYLATE 10 MG TABLET (FP) PO SCH (09:11)
[2019-11-06] MEDS: ISOSORBIDE MONONITRATE 30 MG TAB.SR.24H (FP) PO SCH (09:11)
[2019-11-06] MEDS: NICOTINE 14 MG/24 HOURS TOPICAL PATCH TD SCH (09:11)
[2019-11-06] MEDS: ASPIRIN 81 MG CHEWABLE TABLETS PO SCH (09:11)
[2019-11-06] MEDS: HYDROCHLOROTHIAZIDE 25 MG TABLET (FP) PO SCH (09:11)
[2019-11-06] MEDS: CARVEDILOL 3.125 MG TABLET (FP) PO SCH (09:11)
[2019-11-06] MEDS: PRENATAL VITAMINS W/ FOLIC ACID TABLET (FP) PO SCH (09:11)
--- NOTE | 2019-11-06 11:45 | DS ---
[facility] Detox Discharge Summary Admission Date: 11/01/19 Discharge Date: 11/06/19 - History Present History: Alcohol Dependence Additional Comments: 64 years old male admitted on 11/01/19 for alcohol withdrawal sx management treated with librium detox regimen patient tolerated well alert oriented x 3 cardiac s1s2 regular rate rhythm respiratory clear lungs bilaterally on auscultation skin warm and dry - Physical Exam Results Vital Signs: Vital Signs Temperature 98.5 F 11/06/19 09:09 Pulse Rate 96 H 11/06/19 09:09 Respiratory Rate 20 11/06/19 09:09 Blood Pressure 147/99 11/06/19 09:09 O2 Sat by Pulse Oximetry (%) Pertinent Admission Physical Exam Findings: alcohol withdrawal Laboratory Last Values WBC 4.4 K/mm3 (4.0-10.0) 11/02/19 08:00 RBC 4.28 M/mm3 (4.00-5.60) 11/02/19 08:00 Hgb 11.7 GM/dL (11.7-16.9) 11/02/19 08:00 Hct 35.9 % (35.4-49) 11/02/19 08:00 MCV 84.0 fl (80-96) 11/02/19 08:00 MCH 27.3 pg (25.7-33.7) 11/02/19 08:00 MCHC 32.5 g/dl (32.0-35.9) 11/02/19 08:00 RDW 15.1 % (11.9-15.9) 11/02/19 08:00 Plt Count 195 K/MM3 (134-434) 11/02/19 08:00 MPV 9.5 fl (7.5-11.1) 11/02/19 08:00 Sodium 143 mmol/L (136-145) 11/02/19 08:00 Potassium 4.2 mmol/L (3.5-5.1) 11/02/19 08:00 Chloride 110 mmol/L (98-107) H 11/02/19 08:00 Carbon Dioxide 28 mmol/L (21-32) 11/02/19 08:00 Anion Gap 6 MMOL/L (8-16) L 11/02/19 08:00 BUN 32.5 mg/dL (7-18) H 11/02/19 08:00 Creatinine 1.5 mg/dL (0.55-1.3) H 11/02/19 08:00 Est GFR (CKD-EPI)AfAm 57.01 11/02/19 08:00 Est GFR (CKD-EPI)NonAf 49.19 11/02/19 08:00 Random Glucose 92 mg/dL (74-106) 11/02/19 08:00 Calcium 8.5 mg/dL (8.5-10.1) 11/02/19 08:00 Total Bilirubin 0.1 mg/dL (0.2-1) L 11/02/19 08:00 AST 30 U/L (15-37) 11/02/19 08:00 ALT 36 U/L (13-61) 11/02/19 08:00 Alkaline Phosphatase 119 U/L (45-117) H 11/02/19 08:00 Total Protein 6.3 g/dl (6.4-8.2) L 11/02/19 08:00 Albumin 2.8 g/dl (3.4-5.0) L 11/02/19 08:00 RPR Titer Nonreactive (NONREACTIVE) 11/02/19 08:00 lab noted - Treatment Hospital Course: Detox Protocol Followed, Detoxed Safely, Responded well, Discharged Condition Good, Rehab Referral Accepted Patient has Accepted a Rehab Referral to: community support approach - Medication Discharge Medications: Ambulatory Orders Amlodipine Besylate [Norvasc -] 10 mg PO DAILY #30 tablet 03/18/18 Hydrochlorothiazide 25 mg PO DAILY 09/24/19 - Diagnosis (1) Alcohol dependence with uncomplicated withdrawal Status: Acute (2) Nicotine dependence Status: Acute Qualifiers: Nicotine product type: cigarettes Substance use status: in withdrawal Qualified Code(s): F17.213 - Nicotine dependence, cigarettes, with withdrawal (3) Hyperlipidemia Status: Chronic Qualifiers: Hyperlipidemia type: unspecified Qualified Code(s): E78.5 - Hyperlipidemia , unspecified (4) Hypertension Status: Chronic Qualifiers: Hypertension type: essential hypertension Qualified Code(s): I10 - Essential (primary) hypertension (5) Substance induced mood disorder Status: Suspected - AMA Did Patient Leave Against Medical Advice: No CIWA Score - CIWA Score Nausea/Vomitin-No Nausea/No Vomiting Muscle Tremors: 1-None Visible, but [place] Anxiety: 0-No Anxiety, at Ease Agitation: 0-Normal Activity Paroxysmal Sweats: No Perspiration Orientation: 0-Oriented Tacttile Disturbances: 0-None Auditory Disturbances: 0-None Visual Disturbances: 0-None Headache: 0-None Present CIWA-Ar Total Score: 1
== END 2019-11-06 09:04 | disposition home or self-care (01) | DRG 774 ==
LOC: YASAS 11:09 → Y3N 13:01
PROVIDERS: ADMIT Allergy & Immunology; ATTEND Allergy & Immunology
PROC: HZ2ZZZZ Detoxification Services for Substance Abuse Treatment (ICD-10-PCS; principal; 2019-11-01)
DX: F10.230 Alcohol dependence with withdrawal, uncomplicated (principal); F14.20 Cocaine dependence, uncomplicated; F12.20 Cannabis dependence, uncomplicated; F17.213 Nicotine dependence, cigarettes, with withdrawal; F19.24 Other psychoactive substance dependence with psychoactive substance-induced mood disorder; I10 Essential (primary) hypertension; E78.5 Hyperlipidemia, unspecified; M54.5 Low back pain; G89.29 Other chronic pain; R00.0 Tachycardia, unspecified; I12.9 Hypertensive chronic kidney disease with stage 1 through stage 4 chronic kidney disease, or unspecified chronic kidney disease; N18.3 Chronic kidney disease, stage 3 (moderate); Z96.642 Presence of left artificial hip joint
CPT/HCPCS: 36415; 80053; 85027; 86593; 93005; 93010

== ENCOUNTER 2019-12-27 11:40 | Inpatient (IN) | payer OTHER ==
--- NOTE | 2019-12-27 12:12 | BHS.RME ---
Substance Use & Tx History - Substance Use History Alcohol Substance amount: 2 pints vodka Frequency of use: Daily Substance route: Oral Date of Last Use: 12/27/19 Cocaine (Powder) Substance amount: 0.5 -1 gram Frequency of use: Daily Substance route: Inhalation (ex: sniffing or snorting) Date of Last Use: 12/27/19 Nicotine Substance amount: 1pack Frequency of use: Daily Substance route: Smoking Date of Last Use: 12/27/19 CIWA Nausea/Vomitin Muscle Tremors: 3 Anxiety: 2 Agitation: 2 Paroxysmal Sweats: 2 Orientation: 0-Oriented Tacttile Disturbances: 0-None Auditory Disturbances: 0-None Visual Disturbances: 1-Very Mild Sensitivity Headache: 2-Mild CIWA-Ar Total Score: 14
--- NOTE | 2019-12-27 13:03 | HP ---
CIWA Score Nausea/Vomitin Muscle Tremors: 3 Anxiety: 2 Agitation: 2 Paroxysmal Sweats: 2 Orientation: 0-Oriented Tacttile Disturbances: 0-None Auditory Disturbances: 0-None Visual Disturbances: 1-Very Mild Sensitivity Headache: 2-Mild CIWA-Ar Total Score: 14 - Admission Criteria OASAS Guidelines: Admission for Medically Managed Detox: Requires at least one of the followin. CIWA greater than 12 2. Seizures within the past 24 hours 3. Delirium tremens within the past 24 hours 4. Hallucinations within the past 24 hours 5. Acute intervention needed for co occurring medical disorder 6. Acute intervention needed for co occurring psychiatric disorder 7. Severe withdrawal that cannot be handled at a lower level of care (continued vomiting, continued diarrhea, abnormal vital signs) requiring intravenous medication and/or fluids 8. Admitting History and Physical - Admission Chief Complaint: " I want to at least try to break the habit." History of Present Illness: 64 year old male with history of alcohol dependence with withdrawal. He was here in 09/24-09/27/19 AMA, then 11/01-11/06/19 and completed detox but didn't want to go to rehab and then relapsed 2 weeks later. He was last admitted last wednesday for a hypertensive episode at [facility]. He had blackouts in the past but not recently Alcohol: 2 pints vodka and beers last drank at 3:00AM. Cocaine: 0.5-1 gram daily, last used this morning intranasally Nictone: 1 PPD last smoked today and started at age [age] years old PMH: HTN, Chronic low back pain Psurg: L hip replacement Psych: None He is seeking detox once again and will proceed to rehab afterwards. He has poor support systems and is homeless. He has poor judgment and needs to gain insight into his disease. 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 History of Recent Travel: No Admission ROS [facility] Allergies/Adverse Reactions: Allergies Allergy/AdvReac Type Severity Reaction Status Date / Time No Known Allergies Allergy Verified 11/01/19 11:38 Exam Limitations: No Limitations - Ebola screening Have you traveled outside of the country in the last 21 days: No Have you had contact with anyone from an Ebola affected area: No Have you been sick,other than usual withdrawal symptoms: No Do you have a fever: No - Review of Systems Constitutional: No Symptoms Reported EENT: reports: No Symptoms Reported Respiratory: reports: No Symptoms reported Cardiac: reports: No Symptoms Reported GI: reports: No Symptoms Reported : reports: No Symptoms Reported Musculoskeletal: reports: No Symptoms Reported Integumentary: reports: No Symptoms Reported Neuro: reports: No Symptoms reported Endocrine: reports: No Symptoms Reported Hematology: reports: No Symptoms Reported Psychiatric: reports: Judgement Intact, Mood/Affect Appropiate, Orientated x3 Other Systems: Reviewed and Negative Patient History - Patient Medical History Hx Anemia: No Hx Asthma: No Hx Chronic Obstructive Pulmonary Disease (COPD): No Hx Cancer: No Hx Cardiac Disorders: No Hx Congestive Heart Failure: No Hx Hypertension: Yes (on meds) Hx Hypercholesterolemia: Yes (on lipitor) Hx Pacemaker: No HX Cerebrovascular Accident: No Hx Seizures: No Hx Dementia: No Hx Diabetes: No Hx Gastrointestinal Disorders: No Hx Liver Disease: No Hx Genitourinary Disorders: No Hx Sexually Transmitted Disorders: No Hx Renal Disease (ESRD): No Hx Thyroid Disease: No Hx Human Immunodeficiency Virus (HIV): No (last 04/19 negative) Hx Hepatitis C: No Hx Depression: No Hx Suicide Attempt: No Hx Bipolar Disorder: No Hx Schizophrenia: No - Patient Surgical History Past Surgical History: No Hx Neurologic Surgery: No Hx Cataract Extraction: No Hx Cardiac Surgery: No Hx Lung Surgery: No Hx Breast Surgery: No Hx Breast Biopsy: No Hx Abdominal Surgery: No Hx Appendectomy: No Hx Cholecystectomy: No Hx Genitourinary Surgery: No Hx Section: No Hx Orthopedic Surgery: No Other Surgical History: left hip replacement Anesthesia Reaction: No - PPD History Previous Implant?: Yes Documented Results: Negative w/proof Implanted On Prior R Admission?: Yes Date: 09/26/19 Results: NEGATIVE PPD to be Administered?: No - Smoking Cessation Smoking history: Current every day smoker Have you smoked in the past 12 months: Yes Aproximately how many cigarettes per day: 10 Cigars Per Day: 0 Hx Chewing Tobacco Use: No Initiated information on smoking cessation: Yes 'Breaking Loose' booklet given: 12/27/19 - Substances abused Alprazolam (Xanax) Substance route: Oral Amount used: 2 pints vodka Age of first use: 17 Date of last use: 12/27/19 (3 am) Cocaine Substance route: Inhalation Amount used: 0.5-1 gram Age of first use: 22 Date of last use: 12/26/19 Admission Physical Exam BHS - Physical General Appearance: Yes: Mild Distress, Tremorous, Irritable, Sweating HEENTM: Yes: EOMI, Hearing grossly Normal, Normal ENT Inspection, Normocephalic , Normal Voice, NIRMALA, Pharynx Normal, Tm's normal Respiratory: Yes: Chest Non-Tender, Lungs Clear, Normal Breath Sounds, No Respiratory Distress, No Accessory Muscle Use Neck: Yes: No masses,lesions,Nodules, Supple, Trachea in good position Breast: Yes: Within Normal Limits Cardiology: Yes: Regular Rhythm, Regular Rate, S1, S2 Abdominal: Yes: Normal Bowel Sounds, Non Tender, Flat, Soft Genitourinary: Yes: Within Normal Limits Back: Yes: Normal Inspection Musculoskeletal: Yes: full range of Motion, Gait Steady, Pelvis Stable Extremities: Yes: Normal Capillary Refill, Normal Inspection, Normal Range of Motion, Non-Tender Neurological: Yes: drug worker II-XII NML intact, Fully Oriented, Alert, Motor Strength 5/5, Normal Mood/Affect, Normal Response Integumentary: Yes: Normal Color, Warm Lymphatic: Yes: Within Normal Limits - Diagnostic (1) Alcohol dependence with uncomplicated withdrawal Current Visit: Yes Status: Acute (2) Cannabis dependence Current Visit: Yes Status: Acute (3) Low back pain Current Visit: Yes Status: Acute (4) Nicotine dependence Current Visit: Yes Status: Acute Qualifiers: Nicotine product type: cigarettes Substance use status: in withdrawal Qualified Code(s): F17.213 - Nicotine dependence, cigarettes, with withdrawal (5) Chronic low back pain Current Visit: Yes Status: Chronic Qualifiers: Back pain laterality: unspecified Sciatica presence: without sciatica Qualified Code(s): M54.5 - Low back pain; G89.29 - Other chronic pain (6) Hyperlipidemia Current Visit: Yes Status: Chronic Qualifiers: Hyperlipidemia type: unspecified Qualified Code(s): E78.5 - Hyperlipidemia , unspecified (7) Hypertension Current Visit: Yes Status: Chronic Qualifiers: Hypertension type: essential hypertension Qualified Code(s): I10 - Essential (primary) hypertension Cleared for Admission BHS - Detox or Rehab [facility] Level of Care: Medically Managed Detox Regimen/Protocol: Librium Claeared for Rehab Admission: No Screened but not Admitted - Documentation of Visit Screened but not Admitted: No Breathalyzer - Breathalyzer Breathalyzer: 0 (3 am this morning) Urine Drug Screen - Test Device Lot number: [id number] Expiration date: 09/30/21 - Control Is test valid?: Yes - Results Drug screen NEGATIVE: No Urine drug screen results: THC-Marijuana, NIDA-Cocaine, MOP-Opiates, BZO- Benzodiazepines Inpatient Rehab Admission - Rehab Decision to Admit Inpatient rehab admission?: No
[2019-12-27] MEDS ORDERED: IBUPROFEN 400 MG TABLET (FP) PO PRN (13:08)
[2019-12-27] MEDS ORDERED: MAG HYDROX/AL HYDROX/SIMETH 30 ML UNIT-DOSE CUP PO PRN (13:08)
[2019-12-27] MEDS ORDERED: ACETAMINOPHEN 325 MG TABLET (FP) PO PRN ×2 (13:08)
[2019-12-27] MEDS ORDERED: MAGNESIUM HYDROX 2400MG/30ML ORAL SUSPENSION 30 ML CUP PO PRN (13:08)
[2019-12-27] MEDS ORDERED: METHOCARBAMOL 500 MG TABLET PO PRN (13:08)
[2019-12-27] MEDS ORDERED: MENTHOL/PHENOL 1 EACH UD MM PRN (13:08)
[2019-12-27] MEDS ORDERED: hydrOXYzine PAMOATE 25 MG CAPSULE (FP) PO PRN (13:08)
[2019-12-27] MEDS ORDERED: BISMUTH SUBSALICYLATE 524 MG/30 ML UD PO PRN (13:08)
[2019-12-27] MEDS ORDERED: chlordiazePOXIDE HCL 25 MG CAPSULE PO PRN (13:08)
[2019-12-27] MEDS ORDERED: MAGNESIUM CITRATE 300 ML BOTTLE PO PRN (13:08)
[2019-12-27 14:52] VITALS: BMI 21.1
--- NOTE | 2019-12-27 16:02 | PN ---
[facility] Progress Note Note: received nurse call bp elevation chart review history of hypertension treated with antihypertensive medication review home medications begin home medications
[2019-12-27 16:39] LABS: HEMATOCRIT 40.4 % (35.4-49); HEMOGLOBIN 13.1 GM/dL (11.7-16.9); MCH 27.7 pg (25.7-33.7); MCHC 32.4 g/dl (32.0-35.9); MEAN CELL VOLUME 85.4 fl (80-96); MEAN PLT VOLUME 9.7 fl (7.5-11.1); PLATELET COUNT 244 K/MM3 (134-434); RBC 4.73 M/mm3 (4.00-5.60); RDW 14.2 % (11.9-15.9); WHITE BLOOD COUNT 5.2 K/mm3 (4.0-10.0)
[2019-12-27 16:48] LABS: ALBUMIN 3.8 g/dl (3.4-5.0); BILIRUBIN,TOTAL 0.6 mg/dL (0.2-1); BLOOD UREA NITROGEN 25.5 mg/dL (7-18); TOT PROT 8.5 g/dl (6.4-8.2)
[2019-12-27] MEDS ORDERED: cloNIDine HCL 0.1 MG TABLET PO ONE (17:30)
[2019-12-27] MEDS: amLODIPine BESYLATE 10 MG TABLET (FP) PO SCH (18:15)
[2019-12-27] MEDS: HYDROCHLOROTHIAZIDE 25 MG TABLET (FP) PO SCH (18:15)
[2019-12-27] MEDS: LISINOPRIL 10 MG TABLET (FP) PO SCH (18:15)
[2019-12-27] MEDS: chlordiazePOXIDE HCL 25 MG CAPSULE PO SCH ×2 (18:16→22:38)
[2019-12-27] MEDS: NIFEdipine E.R. 90 MG TABLET PO SCH (18:16)
[2019-12-27] MEDS: ATORVASTATIN CA 20 MG TABLET (FP) PO SCH (22:38)
[2019-12-27] MEDS: THIAMINE HCL 100 MG TABLET (FP) PO SCH (22:38)
[2019-12-28] MEDS: chlordiazePOXIDE HCL 25 MG CAPSULE PO SCH ×4 (06:50→22:39)
[2019-12-28] MEDS: LISINOPRIL 10 MG TABLET (FP) PO SCH (09:49)
[2019-12-28] MEDS: amLODIPine BESYLATE 10 MG TABLET (FP) PO SCH (09:49)
[2019-12-28] MEDS: NIFEdipine E.R. 90 MG TABLET PO SCH (09:50)
[2019-12-28] MEDS: PRENATAL VITAMINS W/ FOLIC ACID TABLET (FP) PO SCH (10:35)
[2019-12-28] MEDS: HYDROCHLOROTHIAZIDE 25 MG TABLET (FP) PO SCH (10:35)
--- NOTE | 2019-12-28 14:24 | PN ---
S CIWA - CIWA Score Nausea/Vomitin-Mild Nausea/No Vomiting Muscle Tremors: 3 Anxiety: 2 Agitation: 0-Normal Activity Paroxysmal Sweats: 2 Orientation: 0-Oriented Tacttile Disturbances: 0-None Auditory Disturbances: 0-None Visual Disturbances: 2-Mild Sensitivity Headache: 2-Mild CIWA-Ar Total Score: 12 S Progress Note (SOAP) Subjective: 64 years old male admitted on 12/27/19 for benzo withdrawal sx management treating with librium detox regiment reports sleepy with low bp 102/68 hold some of antihypertensive medications continue bp monitoring may have once daily antihypertensive medications that were hold this morning if appropriated Objective: 12/28/19 14:23 Vital Signs Temperature 97.8 F 12/28/19 12:50 Pulse Rate 93 H 12/28/19 12:50 Respiratory Rate 18 12/28/19 12:50 Blood Pressure 131/83 12/28/19 12:50 O2 Sat by Pulse Oximetry (%) Laboratory Last Values WBC 5.2 K/mm3 (4.0-10.0) 12/27/19 13:20 RBC 4.73 M/mm3 (4.00-5.60) 12/27/19 13:20 Hgb 13.1 GM/dL (11.7-16.9) 12/27/19 13:20 Hct 40.4 % (35.4-49) 12/27/19 13:20 MCV 85.4 fl (80-96) 12/27/19 13:20 MCH 27.7 pg (25.7-33.7) 12/27/19 13:20 MCHC 32.4 g/dl (32.0-35.9) 12/27/19 13:20 RDW 14.2 % (11.9-15.9) 12/27/19 13:20 Plt Count 244 K/MM3 (134-434) D 12/27/19 13:20 MPV 9.7 fl (7.5-11.1) 12/27/19 13:20 Sodium 139 mmol/L (136-145) 12/27/19 13:20 Potassium 4.0 mmol/L (3.5-5.1) 12/27/19 13:20 Chloride 106 mmol/L (98-107) 12/27/19 13:20 Carbon Dioxide 29 mmol/L (21-32) 12/27/19 13:20 Anion Gap 4 MMOL/L (8-16) L 12/27/19 13:20 BUN 25.5 mg/dL (7-18) H 12/27/19 13:20 Creatinine 2.0 mg/dL (0.55-1.3) H 12/27/19 13:20 Est GFR (CKD-EPI)AfAm 40.26 12/27/19 13:20 Est GFR (CKD-EPI)NonAf 34.74 12/27/19 13:20 Random Glucose 104 mg/dL (74-106) 12/27/19 13:20 Calcium 9.0 mg/dL (8.5-10.1) 12/27/19 13:20 Total Bilirubin 0.6 mg/dL (0.2-1) 12/27/19 13:20 AST 51 U/L (15-37) H 12/27/19 13:20 ALT 51 U/L (13-61) 12/27/19 13:20 Alkaline Phosphatase 83 U/L (45-117) 12/27/19 13:20 Total Protein 8.5 g/dl (6.4-8.2) H 12/27/19 13:20 Albumin 3.8 g/dl (3.4-5.0) 12/27/19 13:20 RPR Titer Nonreactive (NONREACTIVE) 12/27/19 13:20 lab noted bun and creatinine elevation renal function panel 12/28/19 14:24 Assessment: 12/28/19 14:24 benzo withdrawal Plan: librium regiment
[2019-12-28] MEDS: ATORVASTATIN CA 20 MG TABLET (FP) PO SCH (22:38)
[2019-12-28] MEDS: THIAMINE HCL 100 MG TABLET (FP) PO SCH (22:39)
[2019-12-29] MEDS: chlordiazePOXIDE HCL 25 MG CAPSULE PO SCH ×4 (05:38→22:21)
[2019-12-29] MEDS: amLODIPine BESYLATE 10 MG TABLET (FP) PO SCH (10:14)
[2019-12-29] MEDS: LISINOPRIL 10 MG TABLET (FP) PO SCH (10:14)
[2019-12-29] MEDS: PRENATAL VITAMINS W/ FOLIC ACID TABLET (FP) PO SCH (10:14)
[2019-12-29] MEDS: NIFEdipine E.R. 90 MG TABLET PO SCH (10:14)
[2019-12-29] MEDS: HYDROCHLOROTHIAZIDE 25 MG TABLET (FP) PO SCH (10:14)
--- NOTE | 2019-12-29 10:29 | PN ---
S CIWA - CIWA Score Nausea/Vomitin-No Nausea/No Vomiting Muscle Tremors: None Anxiety: 1-Mildly Anxious Agitation: 0-Normal Activity Paroxysmal Sweats: No Perspiration Orientation: 0-Oriented Tacttile Disturbances: 0-None Auditory Disturbances: 0-None Visual Disturbances: 0-None Headache: 0-None Present CIWA-Ar Total Score: 1 BHS Progress Note (SOAP) Subjective: Pt questioning need for repeat labs Objective: 12/29/19 10:27 Laboratory Tests 12/27/19 12/27/19 12/27/19 13:20 13:20 13:20 WBC 5.2 RBC 4.73 Hgb 13.1 Hct 40.4 MCV 85.4 MCH 27.7 MCHC 32.4 RDW 14.2 Plt Count 244 D MPV 9.7 Sodium 139 Potassium 4.0 Chloride 106 Carbon Dioxide 29 Anion Gap 4 L BUN 25.5 H Creatinine 2.0 H Est GFR (CKD-EPI)AfAm 40.26 Est GFR (CKD-EPI)NonAf 34.74 Random Glucose 104 Calcium 9.0 Total Bilirubin 0.6 AST 51 H ALT 51 Alkaline Phosphatase 83 Total Protein 8.5 H Albumin 3.8 RPR Titer Nonreactive Vital Signs Temperature 97.3 F L 12/29/19 08:48 Pulse Rate 79 12/29/19 08:48 Respiratory Rate 18 12/29/19 08:48 Blood Pressure 116/83 12/29/19 08:48 O2 Sat by Pulse Oximetry (%) PE gnl: WDWN, in no distress MS: awake, alert, nl language function Motor: nl Coord: nl Gait: nl Assessment: 12/29/19 10:28 1. Alcohol use disorder 2. elevated BUN/creat Plan: 1. continue Librium withdrawal protocol 2. repeat labs; renal function 3. HTN, under good control
[2019-12-29 14:57] LABS: ALBUMIN 2.9 g/dl (3.4-5.0); BLOOD UREA NITROGEN 27.5 mg/dL (7-18); CALCIUM 8.3 mg/dL (8.5-10.1); CREATININE 1.7 mg/dL (0.55-1.3); PHOSPHOROUS 1.9 mg/dL (2.5-4.9)
[2019-12-29] MEDS: MELATONIN 5 MG TABLETS PO PRN (22:21)
[2019-12-29] MEDS: ATORVASTATIN CA 20 MG TABLET (FP) PO SCH (22:21)
[2019-12-29] MEDS: THIAMINE HCL 100 MG TABLET (FP) PO SCH (22:21)
[2019-12-30] MEDS ORDERED: chlordiazePOXIDE HCL 10 MG CAPSULE PO PRN
[2019-12-30] MEDS: chlordiazePOXIDE HCL 10 MG CAPSULE PO SCH ×4 (06:30→22:29)
--- NOTE | 2019-12-30 11:07 | PN ---
S CIWA - CIWA Score Nausea/Vomitin-No Nausea/No Vomiting Muscle Tremors: None Anxiety: 3 Agitation: 0-Normal Activity Paroxysmal Sweats: 3 Orientation: 0-Oriented Tacttile Disturbances: 0-None Auditory Disturbances: 0-None Visual Disturbances: 0-None Headache: 2-Mild CIWA-Ar Total Score: 8 [facility] Progress Note (SOAP) Subjective: c/o headache, anxiety, and sweats. Objective: 12/30/19 11:06 Vital Signs 12/30/19 12/30/19 12/30/19 03:30 07:02 08:38 Temperature 97.6 F 97.6 F Pulse Rate 79 75 Respiratory 18 16 18 Rate Blood Pressure 117/86 148/94 Laboratory Last Values WBC 5.2 K/mm3 (4.0-10.0) 12/27/19 13:20 RBC 4.73 M/mm3 (4.00-5.60) 12/27/19 13:20 Hgb 13.1 GM/dL (11.7-16.9) 12/27/19 13:20 Hct 40.4 % (35.4-49) 12/27/19 13:20 MCV 85.4 fl (80-96) 12/27/19 13:20 MCH 27.7 pg (25.7-33.7) 12/27/19 13:20 MCHC 32.4 g/dl (32.0-35.9) 12/27/19 13:20 RDW 14.2 % (11.9-15.9) 12/27/19 13:20 Plt Count 244 K/MM3 (134-434) D 12/27/19 13:20 MPV 9.7 fl (7.5-11.1) 12/27/19 13:20 Sodium 139 mmol/L (136-145) 12/29/19 10:35 Potassium 4.0 mmol/L (3.5-5.1) 12/29/19 10:35 Chloride 106 mmol/L (98-107) 12/29/19 10:35 Carbon Dioxide 31 mmol/L (21-32) 12/29/19 10:35 Anion Gap 4 MMOL/L (8-16) L 12/27/19 13:20 BUN 27.5 mg/dL (7-18) H 12/29/19 10:35 Creatinine 1.7 mg/dL (0.55-1.3) H 12/29/19 10:35 Est GFR (CKD-EPI)AfAm 40.26 12/27/19 13:20 Est GFR (CKD-EPI)NonAf 34.74 12/27/19 13:20 Random Glucose 120 mg/dL (74-106) H 12/29/19 10:35 Calcium 8.3 mg/dL (8.5-10.1) L 12/29/19 10:35 Phosphorus 1.9 mg/dL (2.5-4.9) L 12/29/19 10:35 Total Bilirubin 0.6 mg/dL (0.2-1) 12/27/19 13:20 AST 51 U/L (15-37) H 12/27/19 13:20 ALT 51 U/L (13-61) 12/27/19 13:20 Alkaline Phosphatase 83 U/L (45-117) 12/27/19 13:20 Total Protein 8.5 g/dl (6.4-8.2) H 12/27/19 13:20 Albumin 2.9 g/dl (3.4-5.0) L 12/29/19 10:35 RPR Titer Nonreactive (NONREACTIVE) 12/27/19 13:20 Labs noted with elevated BUN/Creat. Refused labs repeat. Assessment: 12/30/19 11:07 AOX3, in no respiratory distress. Full ROM, ambulating in the unit. Withdrawal symptoms. Plan: continue detox. Increase fluids.
[2019-12-30] MEDS: HYDROCHLOROTHIAZIDE 25 MG TABLET (FP) PO SCH (11:23)
[2019-12-30] MEDS: amLODIPine BESYLATE 10 MG TABLET (FP) PO SCH (11:23)
[2019-12-30] MEDS: PRENATAL VITAMINS W/ FOLIC ACID TABLET (FP) PO SCH (11:23)
[2019-12-30] MEDS: NIFEdipine E.R. 90 MG TABLET PO SCH (11:24)
[2019-12-30] MEDS: LISINOPRIL 10 MG TABLET (FP) PO SCH (11:24)
[2019-12-30] MEDS: THIAMINE HCL 100 MG TABLET (FP) PO SCH (22:30)
[2019-12-30] MEDS: ATORVASTATIN CA 20 MG TABLET (FP) PO SCH (22:30)
[2019-12-30] MEDS: MELATONIN 5 MG TABLETS PO PRN (22:30)
[2019-12-31] MEDS: chlordiazePOXIDE HCL 10 MG CAPSULE PO SCH ×2 (07:06→17:44)
--- NOTE | 2019-12-31 09:48 | DS ---
[facility] Detox Discharge Summary Admission Date: 12/27/19 Discharge Date: 12/31/19 - History Present History: Sedative Dependence Additional Comments: 64 years old male admitted on 12/27/19 for benzo withdrawal sx management treated with librium detox regiment Mr Hilario prefers to leave the detox today instead of as estimated discharge day of 01/01/20 alert oriented x 3 speech clearly coherently ambulating steady gait cardiac s1s2 regular rate rhythm ekg indicated left atrial enlargement denies chest pain no dizziness no shortness of breath respiratory clear lungs bilaterally on auscultation extremities full range of motion Pertinent Past History: time for discharge 34 minutes patient refuses aftercare arrangement that "I do not want to go anywhere" patient has not attend groups nor meetings while in detox - Physical Exam Results Vital Signs: Vital Signs Temperature 98.1 F 12/31/19 05:52 Pulse Rate 84 12/31/19 05:52 Respiratory Rate 18 12/31/19 05:52 Blood Pressure 104/68 12/31/19 05:52 O2 Sat by Pulse Oximetry (%) Pertinent Admission Physical Exam Findings: benzo withdrawal Vital Signs Temperature 98.1 F 12/31/19 05:52 Pulse Rate 84 12/31/19 05:52 Respiratory Rate 18 12/31/19 05:52 Blood Pressure 104/68 12/31/19 05:52 O2 Sat by Pulse Oximetry (%) Laboratory Last Values WBC 5.2 K/mm3 (4.0-10.0) 12/27/19 13:20 RBC 4.73 M/mm3 (4.00-5.60) 12/27/19 13:20 Hgb 13.1 GM/dL (11.7-16.9) 12/27/19 13:20 Hct 40.4 % (35.4-49) 12/27/19 13:20 MCV 85.4 fl (80-96) 12/27/19 13:20 MCH 27.7 pg (25.7-33.7) 12/27/19 13:20 MCHC 32.4 g/dl (32.0-35.9) 12/27/19 13:20 RDW 14.2 % (11.9-15.9) 12/27/19 13:20 Plt Count 244 K/MM3 (134-434) D 12/27/19 13:20 MPV 9.7 fl (7.5-11.1) 12/27/19 13:20 Sodium 139 mmol/L (136-145) 12/29/19 10:35 Potassium 4.0 mmol/L (3.5-5.1) 12/29/19 10:35 Chloride 106 mmol/L (98-107) 12/29/19 10:35 Carbon Dioxide 31 mmol/L (21-32) 12/29/19 10:35 Anion Gap 4 MMOL/L (8-16) L 12/27/19 13:20 BUN 27.5 mg/dL (7-18) H 12/29/19 10:35 Creatinine 1.7 mg/dL (0.55-1.3) H 12/29/19 10:35 Est GFR (CKD-EPI)AfAm 40.26 12/27/19 13:20 Est GFR (CKD-EPI)NonAf 34.74 12/27/19 13:20 Random Glucose 120 mg/dL (74-106) H 12/29/19 10:35 Calcium 8.3 mg/dL (8.5-10.1) L 12/29/19 10:35 Phosphorus 1.9 mg/dL (2.5-4.9) L 12/29/19 10:35 Total Bilirubin 0.6 mg/dL (0.2-1) 12/27/19 13:20 AST 51 U/L (15-37) H 12/27/19 13:20 ALT 51 U/L (13-61) 12/27/19 13:20 Alkaline Phosphatase 83 U/L (45-117) 12/27/19 13:20 Total Protein 8.5 g/dl (6.4-8.2) H 12/27/19 13:20 Albumin 2.9 g/dl (3.4-5.0) L 12/29/19 10:35 RPR Titer Nonreactive (NONREACTIVE) 12/27/19 13:20 lab noted renal insufficient - Treatment Hospital Course: Detox Protocol Followed, Detoxed Safely, Responded well, Discharged Condition Good, Rehab Referral Accepted Patient has Accepted a Rehab Referral to: community support approach - Medication Discharge Medications: Ambulatory Orders Amlodipine Besylate [Norvasc -] 10 mg PO DAILY #30 tablet 03/18/18 Hydrochlorothiazide 25 mg PO DAILY 09/24/19 Atorvastatin Ca [Lipitor] 20 mg PO HS 12/27/19 Isosorbide Mononitrate [Isosorbide Mononitrate ER] 60 mg PO DAILY 12/27/19 Lisinopril 10 mg PO DAILY 12/27/19 Nifedipine ER [Procardia Xl -] 90 mg PO DAILY 12/27/19 - Diagnosis (1) Sedative, hypnotic or anxiolytic dependence, uncomplicated Current Visit: Yes Status: Acute (2) Nicotine dependence Current Visit: Yes Status: Acute Qualifiers: Nicotine product type: cigarettes Substance use status: in withdrawal Qualified Code(s): F17.213 - Nicotine dependence, cigarettes, with withdrawal (3) Hypertension Current Visit: Yes Status: Chronic Qualifiers: Hypertension type: essential hypertension Qualified Code(s): I10 - Essential (primary) hypertension (4) Hyperlipidemia Current Visit: Yes Status: Chronic Qualifiers: Hyperlipidemia type: pure hypertriglyceridemia Qualified Code(s): E78.1 - Pure hyperglyceridemia (5) Chronic renal insufficiency, stage III (moderate) Current Visit: Yes Status: Chronic (6) Substance induced mood disorder Current Visit: Yes Status: Suspected - AMA Did Patient Leave Against Medical Advice: No CIWA Score - CIWA Score Nausea/Vomitin-No Nausea/No Vomiting Muscle Tremors: None Anxiety: 2 Agitation: 0-Normal Activity Paroxysmal Sweats: 1-Minimal Palms Moist Orientation: 0-Oriented Tacttile Disturbances: 0-None Auditory Disturbances: 0-None Visual Disturbances: 0-None Headache: 0-None Present CIWA-Ar Total Score: 3
[2019-12-31] MEDS: PRENATAL VITAMINS W/ FOLIC ACID TABLET (FP) PO SCH (10:54)
[2019-12-31] MEDS: HYDROCHLOROTHIAZIDE 25 MG TABLET (FP) PO SCH (10:54)
[2019-12-31] MEDS: LISINOPRIL 10 MG TABLET (FP) PO SCH (10:54)
[2019-12-31] MEDS: NIFEdipine E.R. 90 MG TABLET PO SCH (10:54)
[2019-12-31] MEDS: amLODIPine BESYLATE 10 MG TABLET (FP) PO SCH (10:54)
--- NOTE | 2019-12-31 11:21 | PN ---
[facility] Progress Note Note: patient wants to stay overnight till tomorrow 01/01/20 that his family will pick him up around 8-9 am change discharge day to 01/01/20
[2019-12-31] MEDS: THIAMINE HCL 100 MG TABLET (FP) PO SCH (22:35)
[2019-12-31] MEDS: MELATONIN 5 MG TABLETS PO PRN (22:35)
[2019-12-31] MEDS: ATORVASTATIN CA 20 MG TABLET (FP) PO SCH (22:35)
[2020-01-01] MEDS ORDERED: chlordiazePOXIDE HCL 10 MG CAPSULE PO ONE (05:00)
[2020-01-01 06:18] VITALS: BP 121/76; PULSE 84; TEMP 97.6
--- NOTE | 2020-01-01 10:05 | DS ---
[facility] Detox Discharge Summary Admission Date: 12/27/19 Discharge Date: 01/01/20 - History Present History: Sedative Dependence Additional Comments: Mr Hilario has completed the librium regiment and is tolerated well alert oriented x 3 not attend groups and meetings while in detox refuses aftercare referral cardiac s1s2 regular rate rhythm ekg indicated left atrial enlargement respiratory clear lungs bilaterally on auscultation skin warm and dry Pertinent Past History: time for discharge 33 minutes Mr Hilario prefers follow up with primary care provider for medical and mental issues - Physical Exam Results Vital Signs: Vital Signs Temperature 97.6 F 01/01/20 06:17 Pulse Rate 84 01/01/20 06:17 Respiratory Rate 18 01/01/20 06:44 Blood Pressure 121/76 01/01/20 06:17 O2 Sat by Pulse Oximetry (%) Pertinent Admission Physical Exam Findings: benzo withdrawa Laboratory Last Values WBC 5.2 K/mm3 (4.0-10.0) 12/27/19 13:20 RBC 4.73 M/mm3 (4.00-5.60) 12/27/19 13:20 Hgb 13.1 GM/dL (11.7-16.9) 12/27/19 13:20 Hct 40.4 % (35.4-49) 12/27/19 13:20 MCV 85.4 fl (80-96) 12/27/19 13:20 MCH 27.7 pg (25.7-33.7) 12/27/19 13:20 MCHC 32.4 g/dl (32.0-35.9) 12/27/19 13:20 RDW 14.2 % (11.9-15.9) 12/27/19 13:20 Plt Count 244 K/MM3 (134-434) D 12/27/19 13:20 MPV 9.7 fl (7.5-11.1) 12/27/19 13:20 Sodium 139 mmol/L (136-145) 12/29/19 10:35 Potassium 4.0 mmol/L (3.5-5.1) 12/29/19 10:35 Chloride 106 mmol/L (98-107) 12/29/19 10:35 Carbon Dioxide 31 mmol/L (21-32) 12/29/19 10:35 Anion Gap 4 MMOL/L (8-16) L 12/27/19 13:20 BUN 27.5 mg/dL (7-18) H 12/29/19 10:35 Creatinine 1.7 mg/dL (0.55-1.3) H 12/29/19 10:35 Est GFR (CKD-EPI)AfAm 40.26 12/27/19 13:20 Est GFR (CKD-EPI)NonAf 34.74 12/27/19 13:20 Random Glucose 120 mg/dL (74-106) H 12/29/19 10:35 Calcium 8.3 mg/dL (8.5-10.1) L 12/29/19 10:35 Phosphorus 1.9 mg/dL (2.5-4.9) L 12/29/19 10:35 Total Bilirubin 0.6 mg/dL (0.2-1) 12/27/19 13:20 AST 51 U/L (15-37) H 12/27/19 13:20 ALT 51 U/L (13-61) 12/27/19 13:20 Alkaline Phosphatase 83 U/L (45-117) 12/27/19 13:20 Total Protein 8.5 g/dl (6.4-8.2) H 12/27/19 13:20 Albumin 2.9 g/dl (3.4-5.0) L 12/29/19 10:35 RPR Titer Nonreactive (NONREACTIVE) 12/27/19 13:20 lab noted renal insufficiency III - Treatment Hospital Course: Detox Protocol Followed, Detoxed Safely, Responded well, Discharged Condition Good, Rehab Referral Accepted Patient has Accepted a Rehab Referral to: community support - Medication Discharge Medications: Ambulatory Orders Amlodipine Besylate [Norvasc -] 10 mg PO DAILY #30 tablet 03/18/18 Hydrochlorothiazide 25 mg PO DAILY 09/24/19 Atorvastatin Ca [Lipitor] 20 mg PO HS 12/27/19 Isosorbide Mononitrate [Isosorbide Mononitrate ER] 60 mg PO DAILY 12/27/19 Lisinopril 10 mg PO DAILY 12/27/19 Nifedipine ER [Procardia XL -] 90 mg PO DAILY 12/27/19 - Diagnosis (1) Sedative, hypnotic or anxiolytic dependence, uncomplicated Status: Acute (2) Nicotine dependence Status: Acute Qualifiers: Nicotine product type: cigarettes Substance use status: in withdrawal Qualified Code(s): F17.213 - Nicotine dependence, cigarettes, with withdrawal (3) Hypertension Status: Chronic Qualifiers: Hypertension type: essential hypertension Qualified Code(s): I10 - Essential (primary) hypertension (4) Hyperlipidemia Status: Chronic Qualifiers: Hyperlipidemia type: pure hypertriglyceridemia Qualified Code(s): E78.1 - Pure hyperglyceridemia (5) Chronic renal insufficiency, stage III (moderate) Status: Chronic (6) Substance induced mood disorder Status: Suspected - AMA Did Patient Leave Against Medical Advice: No CIWA Score - CIWA Score Nausea/Vomitin-No Nausea/No Vomiting Muscle Tremors: None Anxiety: 1-Mildly Anxious Agitation: 0-Normal Activity Paroxysmal Sweats: No Perspiration Orientation: 0-Oriented Tacttile Disturbances: 0-None Auditory Disturbances: 0-None Visual Disturbances: 0-None Headache: 0-None Present CIWA-Ar Total Score: 1
== END 2020-01-01 08:43 | disposition home or self-care (01) | DRG 774 ==
LOC: YASAS 11:40 → Y3N 13:36
PROVIDERS: ADMIT Allergy & Immunology; ATTEND Allergy & Immunology
PROC: HZ2ZZZZ Detoxification Services for Substance Abuse Treatment (ICD-10-PCS; principal; 2019-12-27)
DX: F10.230 Alcohol dependence with withdrawal, uncomplicated (principal); F13.230 Sedative, hypnotic or anxiolytic dependence with withdrawal, uncomplicated; F14.20 Cocaine dependence, uncomplicated; F12.20 Cannabis dependence, uncomplicated; F17.210 Nicotine dependence, cigarettes, uncomplicated; F19.24 Other psychoactive substance dependence with psychoactive substance-induced mood disorder; I12.9 Hypertensive chronic kidney disease with stage 1 through stage 4 chronic kidney disease, or unspecified chronic kidney disease; N18.3 Chronic kidney disease, stage 3 (moderate); E78.5 Hyperlipidemia, unspecified; E78.1 Pure hyperglyceridemia; M54.5 Low back pain; G89.29 Other chronic pain; Z96.642 Presence of left artificial hip joint; Z56.0 Unemployment, unspecified
CPT/HCPCS: 36415; 80053; 80069; 85027; 86593; J0735

== ENCOUNTER 2020-04-23 10:52 | Inpatient (IN) | payer OTHER ==
[2020-04-23 12:22] VITALS: BMI 23.1
[2020-04-23] MEDS ORDERED: MAG HYDROX/AL HYDROX/SIMETH 30 ML UNIT-DOSE CUP PO PRN (13:00)
[2020-04-23] MEDS ORDERED: chlordiazePOXIDE HCL 25 MG CAPSULE PO PRN (13:00)
[2020-04-23] MEDS ORDERED: METHOCARBAMOL 500 MG TABLET PO PRN (13:00)
[2020-04-23] MEDS ORDERED: MAGNESIUM CITRATE 300 ML BOTTLE PO PRN (13:00)
[2020-04-23] MEDS ORDERED: MAGNESIUM HYDROX 2400MG/30ML ORAL SUSPENSION 30 ML CUP PO PRN (13:00)
[2020-04-23] MEDS ORDERED: ONDANSETRON *ODT* 4 MG TABLET SL PRN (13:00)
[2020-04-23] MEDS ORDERED: BISMUTH SUBSALICYLATE 524 MG/30 ML UD PO PRN (13:00)
[2020-04-23] MEDS ORDERED: NICOTINE POLACRILEX 2 MG GUM BUC PRN (13:00)
[2020-04-23] MEDS ORDERED: IBUPROFEN 400 MG TABLET (FP) PO PRN (13:00)
[2020-04-23] MEDS ORDERED: ACETAMINOPHEN 325 MG TABLET (FP) PO PRN ×2 (13:00)
[2020-04-23] MEDS ORDERED: MENTHOL/PHENOL 1 EACH UD MM PRN (13:00)
[2020-04-23] MEDS: NICOTINE 14 MG/24 HOURS TOPICAL PATCH TD SCH (13:56)
[2020-04-23] MEDS: PRENATAL VITAMINS W/ FOLIC ACID TABLET (FP) PO SCH (13:57)
[2020-04-23] MEDS ORDERED: hydrOXYzine PAMOATE 25 MG CAPSULE (FP) PO SCH (14:00)
[2020-04-23] MEDS ORDERED: hydrOXYzine PAMOATE 25 MG CAPSULE (FP) PO PRN (14:16)
[2020-04-23 17:30] LABS: HEMATOCRIT 38.6 % (35.4-49); HEMOGLOBIN 12.1 GM/dL (11.7-16.9); MCH 27.5 pg (25.7-33.7); MCHC 31.5 g/dl (32.0-35.9); MEAN CELL VOLUME 87.2 fl (80-96); MEAN PLT VOLUME 9.8 fl (7.5-11.1); PLATELET COUNT 227 K/MM3 (134-434); RBC 4.42 M/mm3 (4.00-5.60); RDW 15.1 % (11.9-15.9); WHITE BLOOD COUNT 5.9 K/mm3 (4.0-10.0)
[2020-04-23 17:43] LABS: ALBUMIN 3.5 g/dl (3.4-5.0); BILIRUBIN,TOTAL 0.3 mg/dL (0.2-1); BLOOD UREA NITROGEN 30.2 mg/dL (7-18); CREATININE 1.9 mg/dL (0.55-1.3); POTASSIUM 3.6 mmol/L (3.5-5.1); TOT PROT 7.7 g/dl (6.4-8.2)
[2020-04-23] MEDS: chlordiazePOXIDE HCL 25 MG CAPSULE PO SCH ×2 (18:33→23:30)
[2020-04-23] MEDS: LISINOPRIL 10 MG TABLET PO SCH (21:39)
[2020-04-23] MEDS: amLODIPine BESYLATE 10 MG TABLET (FP) PO SCH (21:39)
[2020-04-23] MEDS: ATORVASTATIN CA 20 MG TABLET (FP) PO SCH (21:39)
[2020-04-23] MEDS: THIAMINE HCL 100 MG TABLET (FP) PO SCH (23:30)
[2020-04-23] MEDS: MELATONIN 5 MG TABLETS PO SCH (23:30)
[2020-04-24] MEDS: chlordiazePOXIDE HCL 25 MG CAPSULE PO SCH ×4 (05:28→22:00)
[2020-04-24] MEDS: amLODIPine BESYLATE 10 MG TABLET (FP) PO SCH (10:36)
[2020-04-24] MEDS: NICOTINE 14 MG/24 HOURS TOPICAL PATCH TD SCH (10:36)
[2020-04-24] MEDS: LISINOPRIL 10 MG TABLET PO SCH (10:36)
[2020-04-24] MEDS: PRENATAL VITAMINS W/ FOLIC ACID TABLET (FP) PO SCH (10:36)
[2020-04-24] MEDS: ISOSORBIDE MONONITRATE 60 MG TAB.SR.24H (FP) PO SCH (10:58)
[2020-04-24] MEDS: ATORVASTATIN CA 20 MG TABLET (FP) PO SCH (22:00)
[2020-04-24] MEDS: THIAMINE HCL 100 MG TABLET (FP) PO SCH (22:00)
[2020-04-24] MEDS: MELATONIN 5 MG TABLETS PO SCH (23:00)
[2020-04-25] MEDS: chlordiazePOXIDE HCL 25 MG CAPSULE PO SCH ×4 (06:37→23:19)
[2020-04-25] MEDS: LISINOPRIL 10 MG TABLET PO SCH (10:16)
[2020-04-25] MEDS: NICOTINE 14 MG/24 HOURS TOPICAL PATCH TD SCH (10:16)
[2020-04-25] MEDS: amLODIPine BESYLATE 10 MG TABLET (FP) PO SCH (10:16)
[2020-04-25] MEDS: ISOSORBIDE MONONITRATE 60 MG TAB.SR.24H (FP) PO SCH (10:17)
[2020-04-25] MEDS: PRENATAL VITAMINS W/ FOLIC ACID TABLET (FP) PO SCH (10:17)
[2020-04-25] MEDS: MELATONIN 5 MG TABLETS PO SCH (23:00)
[2020-04-25] MEDS: ATORVASTATIN CA 20 MG TABLET (FP) PO SCH (23:00)
[2020-04-25] MEDS: THIAMINE HCL 100 MG TABLET (FP) PO SCH (23:00)
[2020-04-26] MEDS ORDERED: chlordiazePOXIDE HCL 10 MG CAPSULE PO PRN
[2020-04-26] MEDS: chlordiazePOXIDE HCL 10 MG CAPSULE PO SCH ×2 (06:29→11:09)
[2020-04-26] MEDS: amLODIPine BESYLATE 10 MG TABLET (FP) PO SCH (11:07)
[2020-04-26] MEDS: ISOSORBIDE MONONITRATE 60 MG TAB.SR.24H (FP) PO SCH (11:07)
[2020-04-26] MEDS: LISINOPRIL 10 MG TABLET PO SCH (11:08)
[2020-04-26] MEDS: PRENATAL VITAMINS W/ FOLIC ACID TABLET (FP) PO SCH (11:09)
[2020-04-26] MEDS: NICOTINE 14 MG/24 HOURS TOPICAL PATCH TD SCH (11:09)
[2020-04-26 11:23] VITALS: TEMP 97.8
[2020-04-26 13:49] VITALS: BP 153/89; PULSE 100
[2020-04-27] MEDS ORDERED: chlordiazePOXIDE HCL 10 MG CAPSULE PO SCH (05:00)
[2020-04-28] MEDS ORDERED: chlordiazePOXIDE HCL 10 MG CAPSULE PO ONE (05:00)
== END 2020-04-26 15:42 | disposition home or self-care (01) | DRG 774 ==
LOC: YASAS 10:52 → Y6N 12:45
PROVIDERS: ADMIT Allergy & Immunology; ATTEND Allergy & Immunology
PROC: HZ2ZZZZ Detoxification Services for Substance Abuse Treatment (ICD-10-PCS; principal; 2020-04-23)
DX: F10.230 Alcohol dependence with withdrawal, uncomplicated (principal); F14.20 Cocaine dependence, uncomplicated; F12.20 Cannabis dependence, uncomplicated; F17.210 Nicotine dependence, cigarettes, uncomplicated; F19.24 Other psychoactive substance dependence with psychoactive substance-induced mood disorder; I10 Essential (primary) hypertension; E78.1 Pure hyperglyceridemia; I45.81 Long QT syndrome; R79.89 Other specified abnormal findings of blood chemistry; M54.5 Low back pain; G89.29 Other chronic pain; Z86.19 Personal history of other infectious and parasitic diseases; Z59.0 Homelessness
CPT/HCPCS: 36415; 80053; 85027; 86780; U0003